=== PATIENT | female | born 1945 | race Caucasian/White ===

== ENCOUNTER 2019-10-19 10:21 | Outpatient (CLI) | payer MEDICARE, SELFPAY ==
--- NOTE | ~2019-10-19 | MM_ITS ---
EXAMINATION: MM screening [facility] BI w nadir HISTORY: Screening mammogram TECHNIQUE: Craniocaudal and mediolateral oblique 3-D tomosynthesis images were obtained and synthetic 2-D images were generated. CAD analysis was submitted and interpreted. COMPARISON: Comparison to multiple prior studies sequentially, with oldest reviewed study dated 04/18. BREAST PARENCHYMAL COMPOSITION: There are scattered areas of fibroglandular density. FINDINGS: There is no evidence of suspicious mass, calcification, or architectural distortion to sugg est malignancy in either breast. There has been no suspicious interval change. IMPRESSION: 1. No mammographic evidence of malignancy. 2. Recommend routine screening mammography in one year. BI-RADS Category 1: Negative Reviewed, dictated and finalized at location A.
== END 2019-10-19 10:22 | disposition home or self-care (01) ==
LOC: ANHIMG 10:25
PROVIDERS: PCP Internal Medicine; Visit Provider Internal Medicine
DX: Z12.31 Encounter for screening mammogram for malignant neoplasm of breast (principal)
CPT/HCPCS: 77063; 77067

== ENCOUNTER 2019-11-11 14:22 | Outpatient (CLI) | payer MEDICARE, SELFPAY ==
--- NOTE | 2019-11-11 14:24 | ECG_ITS ---
Measurements Intervals [place] Rate: 65 P: 72 NE: 142 QRS: -21 QRSD: 97 T: 11 QT: 402 QTc: 419 Interpretive Statements SINUS RHYTHM INCOMPLETE RIGHT BUNDLE BRANCH BLOCK LOW QRS VOLTAGE IN PRECORDIAL LEADS BASELINE ARTIFACT- I, II, III, AVR, AVL, AVF, V6 BORDERLINE ECG Electronically Signed On 11-11-2019 15:06:18 CDT by Brian Echevarria D.O.
[2019-11-11 15:00] LABS: Anion Gap 9 mmol/L (8-16); Blood Urea Nitrogen 28 mg/dL (7-17); Calcium 8.6 mg/dL (8.4-10.2); Carbon Dioxide 23 mmol/L (22-30); Chloride 101 mmol/L (98-107); Estimated Glomerular Filt Rate 37; Glucose 102 mg/dL (65-105); Sodium 133 mmol/L (137-145)
== END 2019-11-11 14:23 | disposition home or self-care (01) ==
LOC: ANHSURGERY 14:24
PROVIDERS: Anesthesiology; PCP Internal Medicine; Visit Provider Orthopaedic Surgery
DX: Z01.818 Encounter for other preprocedural examination (principal); I10 Essential (primary) hypertension; Z79.899 Other long term (current) drug therapy
CPT/HCPCS: 36415; 80048; 93005

== ENCOUNTER 2019-11-15 02:05 | Outpatient (CLI) | payer MEDICARE, SELFPAY ==
[2019-11-15 18:53] LABS: SARS-CoV-2 RNA PCR Negative
== END 2019-11-15 02:06 | disposition home or self-care (01) ==
LOC: ANHCOVIDDT 02:06
PROVIDERS: PCP Internal Medicine; Visit Provider Orthopaedic Surgery
DX: Z01.812 Encounter for preprocedural laboratory examination (principal); Z20.828 Contact with and (suspected) exposure to other viral communicable diseases
CPT/HCPCS: 87635; C9803; U0003

== ENCOUNTER 2019-11-17 00:45 | Day surgery (SDC) | payer MEDICARE, SELFPAY ==
[2019-11-09 15:10] VITALS: BMI 28.3
[2019-11-17] VITALS (9 sets, daily range): BP systolic 127–158; BP diastolic 58–74; PULSE 55–70; RESP 12–18; TEMP 36.5–36.6; O2SAT 100
--- NOTE | ~2019-11-17 | XR_ITS ---
EXAMINATION: XR surgery orthopedic EXAM DATE: 11/17/2019 10:59 INDICATION: Left ankle hardware removal. TECHNIQUE: Fluoroscopy used during XR surgery orthopedic performed by Dr. Sancho Sales MD. The DAP for this procedure was 4.6 cGycm2. FINDINGS: Study demonstrates multiple screw tracks from prior left ankle fixation hardware. No radio paque foreign bodies identified. Correlate with procedure note. IMPRESSION: Fluoroscopy used during orthopedic hardware removal. Reviewed, dictated and finalized at location B.
--- NOTE | 2019-11-17 07:18 | WPDHPUPDATE1 ---
History and Physical Update Update Date/Time: 11/17/19 07:18 History and Physical has been reviewed, including an updated exam of the patient. There are NO changes in the patient's condition. Covid test negative. Risks, benefits, and alternatives have been discussed and questions answered. Patient agrees to proceed with procedure.
[2019-11-17] MEDS: ACETAMINOPHEN 500 MG TABLET 1000 MG PO (08:35)
[2019-11-17] MEDS: LACTATED RINGERS 1,000 ML 30 ML IV CONT (08:40)
[2019-11-17] MEDS: KETOROLAC 15 MG/ML VIAL (*BKC) IV PUSH (08:45)
--- NOTE | 2019-11-17 09:10 | WPDANESEPPF ---
Anes - Initial Pre Proc Eval Procedure: Operation Date: 11/17/19 10:00 Proposed Procedures p Removal Hardware Left Ankle - Sancho Sales MD Date/Time: 11/17/19 09:10 Surgeon: Sancho Sales MD Pre Op Diagnosis: Left ankle painful hardware Patient Data Age: 73 Gender: F Height: 1.6 m Weight: 72.5 kg Last Vital Signs Temp 36.5 C 11/17/19 08:02 Pulse 58 L 11/17/19 08:02 Resp 18 11/17/19 08:02 BP 154/72 H 11/17/19 08:02 Pulse Ox 100 11/17/19 08:02 Allergies Allergy/AdvReac Type Severity Reaction Status Date / Time Penicillins Allergy Unknown Rash Verified 11/17/19 08:17 Sulfa (Sulfonamide Allergy Unknown Rash Verified 11/17/19 08:17 Antibiotics) Home Medications Medication Instructions Recorded Confirmed Type aspirin 81 mg tablet,delayed 81 mg PO DAILY 02/17/19 11/17/19 History release lisinopril 10 1 tablet PO DAILY 02/17/19 11/17/19 History mg-hydrochlorothiazide 12.5 mg tablet metoprolol succinate 25 mg 25 mg PO HS 02/17/19 11/17/19 History tablet,extended release 24 hr valacyclovir 1 gram tablet 1,000 mg PO DAILY #5 tablet 06/28/19 11/17/19 Rx atorvastatin 10 mg PO HS 11/09/19 11/17/19 History calcium carbonate-vitamin D3 1 cap PO DAILY 11/09/19 11/17/19 History [Calcium 600 + D(3)] cyanocobalamin (vitamin B-12) 1,000 mcg PO DAILY 11/09/19 11/17/19 History [Vitamin B-12] ECG: Date of Service: 11/11/19 Procedure(s): CA 12 lead EKG Accession Number(s): [id number] cc: ~ Measurements Intervals [place] Rate: 65 P: 72 MT: 142 QRS: -21 QRSD: 97 T: 11 QT: 402 QTc: 419 Interpretive Statements SINUS RHYTHM INCOMPLETE RIGHT BUNDLE BRANCH BLOCK LOW QRS VOLTAGE IN PRECORDIAL LEADS BASELINE ARTIFACT- I, II, III, AVR, AVL, AVF, V6 BORDERLINE ECG Electronically Signed On 11-11-2019 15:06:18 CDT by Brian Echevarria D.O. Dictated By: Brian Echevarria DO 11/11/19 1459 Other Studies: cardiac cath 07/12 - normal, ef 60% Patient hx anesthesia problems: none Family hx anesthesia problems: none PMFSH Past Medical History Medical History (Updated 11/17/19 @ 09:12 by Kevin Guevara MD) CAD (coronary artery disease) Genital herpes HLD (hyperlipidemia) HTN (hypertension) Hyperglycemia Pain due to internal orthopedic prosthetic devices, implants and grafts, subsequent encounter Painful orthopaedic hardware Paroxysmal SVT (supraventricular tachycardia) Prediabetes Vitamin D deficiency Surgical History Surgical History H/O total hysterectomy History of ankle surgery History of cholecystectomy Social History Social History Smoking status: Former smoker Smoking end date: 03/30/97 Additional smoking assessment comments: >1PK/DAY/X10YRS - QUIT 1997 Alcohol intake: current Substance use: never Living arrangements: with family Spiritual care concerns: No Anes - Eval Final PreProcedure Day of Procedure 11/17/19 09:10 Patient weight: overweight Heart: regular rate and rhythm Lungs: clear to auscultation and normal air movement Airway: Mallampati scale class II Neurological: alert and oriented Last oral intake: >/= 8 hours ASA classification: III Emergent: no Anesthetic plan: proceed Anesthesia type and monitoring: general LMA Informed Consent: The patient's anesthetic plan and its attendant risks and benefits were discussed with the patient/family/POA. Questions were solicited and answers provided to the satisfaction of the patient/family/POA.
[2019-11-17] MEDS: ceFAZolin 2 GM/D5W 50 ML 2 GM/50 ML BAG IVPB (09:58)
--- NOTE | 2019-11-17 11:09 | P.OP_ITS ---
Procedure Note - Detailed Date of procedure: 11/17/19 Pre-op diagnosis: Left ankle painful hardware Post-op diagnosis: same Procedure performed: Removal of hardware from the left medial ankle, anterior ankle, distal fibula Description of procedure: Indications: Patient is a 73-year-old woman who 0 previously underwent open reduction internal fixation of the left ankle fracture including distal tibia and fibula. The hardware has become prominent and is visible under the skin laterally. She has pain due to the hardware and presents now for removal. Radiographs show the fractures are well healed. What was done: Patient identified in the preoperative holding. Informed consent given. Operative extremity marked. Patient received intravenous antibiotics. Patient brought to the operating room where underwent general anesthetic by anesthesia team. Positioned supine on operating room table. Time-out performed confirming the patient, site of the surgery and the plan. Left foot and ankle prepped and draped usual sterile surgical fashion using a ChloraPrep skin solution. Foot and ankle exsanguinated and a calf tourniquet was inflated to 225 mmHg. Previous distal fibula incision over the lateral aspect was utilized made again with a 15 blade knife. Hemostasis controlled electrocautery. Fascia was incised in line with skin incision. Plate and screws over the distal fibular were removed. The bone was cleaned with a rongeur and a curette. Fracture was noted to be well healed. Wound was thoroughly irrigated with saline and fascia closed with 3 Monocryl interrupted suture. Subcutaneous tissue repaired with 3 Monocryl interrupted suture and skin repaired with 4 nylon running suture. The medial malleolus incision was made with 15 blade knife. Fascia incised in line with skin incision. The 2 screws medially were cannulated and a guide pin was used to prepare the screws. The screwdriver was then used to remove the 2 screws medially. Bone was curetted and thoroughly irrigated. Fascia and subcutaneous tissue closed with 3 0 Monocryl interrupted suture. Skin closed with 4 0 nylon interrupted suture. The anterior distal tibia incision was then made with 15 blade knife. Fluoroscopy was used to guide the pin placement into the cannulated screws at the anterior aspect of the distal tibia. The 2 screws were removed without difficulty. Wounds thoroughly irrigated antibiotic solution and closed with 3 M onocryl interrupted suture and 4 O nylon interrupted suture. Sterile dressing applied. The patient was then woken from anesthesia, extubated and taken to the recovery room in stable condition. All sponge, needle, instrument counts were correct at the end of the case. Anesthesia: GLMA Surgeon: Sancho Sales MD Envelope Machine Adjuster: assistant kitchen manager Estimated blood loss (mL): 5 Tourniquet time (min): 45 Drains: No Packing: No Pathology: none sent Complications: None Condition: stable Disposition: PACU
--- NOTE | 2019-11-17 13:51 | SUR.PHASEII ---
1320; PT DRESSED. STATES SHE FEELS LIKE HER HEEL ISN'T ALL THE WAY BACK IN THE BOOT BOOT REMOVED. PT PLACED FOOT BACK IN BOOT WHILE IN DEPENDENT POSITION. DRESSING D/I. TOES PINK AND WARM. MEETS DISCHARGE CRITERIA.
== END 2019-11-17 13:30 | disposition home or self-care (01) ==
PROVIDERS: PCP Internal Medicine; Visit Provider Orthopaedic Surgery
PROC: (CPT 20680; principal; 2019-11-17 10:00)
DX: T84.84XA Pain due to internal orthopedic prosthetic devices, implants and grafts, initial encounter (principal); M25.572 Pain in left ankle and joints of left foot; S82.832D Other fracture of upper and lower end of left fibula, subsequent encounter for closed fracture with routine healing; S82.842D Displaced bimalleolar fracture of left lower leg, subsequent encounter for closed fracture with routine healing; I25.10 Atherosclerotic heart disease of native coronary artery without angina pectoris; I10 Essential (primary) hypertension; E78.5 Hyperlipidemia, unspecified; I47.1 Supraventricular tachycardia; B00.9 Herpesviral infection, unspecified; R73.03 Prediabetes; E55.9 Vitamin D deficiency, unspecified; Z87.891 Personal history of nicotine dependence
CPT/HCPCS: 20680 ×3; 36415; 80048; 87635; 93005; A9270; C9803; J0690; J1040; J1100; J1885; J2370; J2405; J2704; J3010; J7120; L2116; U0003

== ENCOUNTER 2020-02-28 07:24 | Outpatient (CLI) | payer MEDICARE, SELFPAY ==
[2020-02-28 08:00] LABS: Anion Gap 5 mmol/L (8-16); Blood Urea Nitrogen 24 mg/dL (7-17); Calcium 9.2 mg/dL (8.4-10.2); Carbon Dioxide 30 mmol/L (22-30); Chloride 104 mmol/L (98-107); Estimated Glomerular Filt Rate 44; Glucose 109 mg/dL (65-105); Potassium 4.9 mmol/L (3.4-5.0); Sodium 139 mmol/L (137-145)
[2020-02-28 08:33] LABS: Hemoglobin A1C 5.5 % (<5.7)
== END 2020-02-28 07:25 | disposition home or self-care (01) ==
PROVIDERS: PCP Internal Medicine; Visit Provider Clinical Nurse Specialist
DX: R73.09 Other abnormal glucose (principal); N28.9 Disorder of kidney and ureter, unspecified
CPT/HCPCS: 36415; 80048; 83036

== ENCOUNTER 2020-03-10 00:36 | Outpatient (CLI) | payer MEDICARE, SELFPAY ==
[2020-03-10 20:15] LABS: SARS-CoV-2 RNA PCR Negative
== END 2020-03-10 00:37 | disposition home or self-care (01) ==
LOC: ANHCOVIDDT 00:37
PROVIDERS: PCP Internal Medicine; Visit Provider Internal Medicine Gastroenterology
DX: Z01.812 Encounter for preprocedural laboratory examination (principal); Z11.59 Encounter for screening for other viral diseases
CPT/HCPCS: 87635; C9803; U0003

== ENCOUNTER 2020-03-13 01:26 | Day surgery (SDC) | payer MEDICARE, SELFPAY ==
[2020-03-07 12:06] VITALS: BMI 28.5
[2020-03-13 08:43] VITALS: BP 109/68; PULSE 78; RESP 20; TEMP 37.3; O2SAT 100
[2020-03-13] MEDS: LACTATED RINGERS 1,000 ML 150 ML IV CONT (08:55)
--- NOTE | 2020-03-13 09:12 | WPDANESEPPF ---
Anes - Initial Pre Proc Eval Procedure: Operation Date: 03/13/20 10:00 Proposed Procedures p Screening Colonoscopy - Preet Styles MD Date/Time: 03/13/20 09:12 Surgeon: Preet Styles MD Pre Op Diagnosis: neoplasm screening Patient Data Age: 74 Gender: F Height: 5 ft 3 in Weight: 70.7 kg Last Vital Signs Temp 37.3 C 03/13/20 08:43 Pulse 78 03/13/20 08:43 Resp 20 03/13/20 08:43 BP 109/68 03/13/20 08:43 Pulse Ox 100 03/13/20 08:43 Allergies Allergy/AdvReac Type Severity Reaction Status Date / Time Penicillins Allergy Unknown Rash Verified 03/13/20 08:41 Sulfa (Sulfonamide Allergy Unknown Rash Verified 03/13/20 08:41 Antibiotics) Home Medications Medication Instructions Recorded Confirmed Type aspirin 81 mg tablet,delayed 81 mg PO DAILY 02/17/19 03/07/20 History release lisinopril 10 1 tablet PO DAILY 02/17/19 03/07/20 History mg-hydrochlorothiazide 12.5 mg tablet metoprolol succinate 25 mg 25 mg PO HS 02/17/19 03/07/20 History tablet,extended release 24 hr cyanocobalamin (vitamin B-12) 1,000 mcg PO DAILY 11/09/19 03/07/20 History [Vitamin B-12] valacyclovir 500 mg tablet 500 mg PO Q12H 3 Days #6 tablet 01/18/20 03/07/20 Rx atorvastatin 10 mg tablet 10 mg PO HS #90 tablet 01/30/20 03/07/20 Rx Patient hx anesthesia problems: none Family hx anesthesia problems: none PMFSH Past Medical History Medical History CAD (coronary artery disease) Genital herpes HLD (hyperlipidemia) HTN (hypertension) Hyperglycemia Pain due to internal orthopedic prosthetic devices, implants and grafts, subsequent encounter Painful orthopaedic hardware Paroxysmal SVT (supraventricular tachycardia) Prediabetes Vitamin D deficiency Surgical History Surgical History H/O total hysterectomy History of ankle surgery History of cholecystectomy Family History Family History Sibling Patient's sister is in good health Malignant neoplasm of prostate Other Hypertension Social History Social History Years smoked: 10 Smoking status: Former smoker Tobacco type: cigarettes Smoking end date: 03/30/97 Additional smoking assessment comments: >1PK/DAY/X10YRS - QUIT 1997 Alcohol intake: current Substance use: never Living arrangements: with family Gender identity (if verbalized by the patient): Female Spiritual care concerns: No Anes - Eval Final PreProcedure Day of Procedure 03/13/20 09:12 Patient weight: overweight Heart: regular rate and rhythm Lungs: clear to auscultation Airway: Mallampati scale class II Neurological: alert and oriented Last oral intake: >/= 8 hours ASA classification: III Emergent: no Anesthetic plan: proceed Anesthesia type and monitoring: general GIVS and standard monitoring Informed Consent: The patient's anesthetic plan and its attendant risks and benefits were discussed with the patient/family/POA. Questions were solicited and answers provided to the satisfaction of the patient/family/POA.
--- NOTE | 2020-03-13 09:37 | PM.HPGS ---
History of Present Illness History of Present Illness Consent: Risks, benefits, and alternatives have been discussed and questions answered. Patient agrees to proceed with procedure. Chief complaint: neoplasm screening Narrative: Mamta Ames is a 74 year old female with polyps about 3 years ago. Review of Systems Constitutional: Constitutional: Denies headache(s) and Denies weakness Eyes: Eyes: Denies blurry vision ENT: Reports Normal hearing present, Denies headache(s) and Denies neck pain Cardiovascular: Cardiovascular: Denies chest pain and Denies dyspnea Respiratory: Respiratory: Denies dyspnea Gastrointestinal: Gastrointestinal: Reports no additional gastrointestinal complaints Genitourinary: Genitourinary: Denies dysuria Musculoskeletal: Musculoskeletal: Denies neck pain Integumentary/Breasts: Skin/Breast: Denies dry skin Neurologic: Reports Normal hearing present, Denies headache(s) and Denies weakness Psychiatric: Psychiatric: Denies anxiety Endocrine: Endocrine: Denies change in body appearance Hematologic/Lymphatic: Hematologic/Lymphatic: Denies easy bleeding Allergic/Immunologic: Allergic/Immunologic: Denies urticaria PMFSH Past Medical History Medical History CAD (coronary artery disease) Genital herpes HLD (hyperlipidemia) HTN (hypertension) Hyperglycemia Pain due to internal orthopedic prosthetic devices, implants and grafts, subsequent encounter Painful orthopaedic hardware Paroxysmal SVT (supraventricular tachycardia) Prediabetes Vitamin D deficiency Surgical History Surgical History H/O total hysterectomy History of ankle surgery History of cholecystectomy Family History Family History Sibling Patient's sister is in good health Malignant neoplasm of prostate Other Hypertension Social History Social History Years smoked: 10 Smoking status: Former smoker Tobacco type: cigarettes Smoking end date: 03/30/97 Additional smoking assessment comments: >1PK/DAY/X10YRS - QUIT 1997 Alcohol intake: current Substance use: never Living arrangements: with family Gender identity (if verbalized by the patient): Female Spiritual care concerns: No Meds Home Medications and Allergies Home Medications Medication Instructions Recorded Confirmed Type aspirin 81 mg tablet,delayed 81 mg PO DAILY 02/17/19 03/07/20 History release lisinopril 10 1 tablet PO DAILY 02/17/19 03/07/20 History mg-hydrochlorothiazide 12.5 mg tablet metoprolol succinate 25 mg 25 mg PO HS 02/17/19 03/07/20 History tablet,extended release 24 hr cyanocobalamin (vitamin B-12) 1,000 mcg PO DAILY 11/09/19 03/07/20 History [Vitamin B-12] valacyclovir 500 mg tablet 500 mg PO Q12H 3 Days #6 tablet 01/18/20 03/07/20 Rx atorvastatin 10 mg tablet 10 mg PO HS #90 tablet 01/30/20 03/07/20 Rx Allergies Allergy/AdvReac Type Severity Reaction Status Date / Time Penicillins Allergy Unknown Rash Verified 03/13/20 08:41 Sulfa (Sulfonamide Allergy Unknown Rash Verified 03/13/20 08:41 Antibiotics) Vital Signs Vital Signs - 24 hr 03/13/20 08:43 Temperature 99.1 F Pulse Rate 78 Respiratory Rate 20 Blood Pressure 109/68 Pulse Oximetry 100 Exam Const: General: comfortable and no acute distress HENMT: General nose exam: Normal nares present Eyes: General: appearance normal, both eyes and all related structures Neck: Neck: no JVD Resp: Auscultation: clear to auscultation bilaterally Cardio: Rate: regular rate Rhythm: regular rhythm GI: Inspection: non-distended GI Palp: Yes Soft to palpation Skin: General skin exam: normal color Neuro: General: gait normal Speech: normal speech Extrem: General: normal to inspection Psych: Mental Status:
[2020-03-13 09:55] VITALS: BP 91/57; PULSE 68; RESP 17; O2SAT 98
[2020-03-13 10:05] VITALS: BP 96/62; PULSE 66; RESP 17; O2SAT 99
[2020-03-13 10:15] VITALS: BP 112/68; PULSE 72; RESP 21; O2SAT 99
== END 2020-03-13 10:28 | disposition home or self-care (01) ==
PROVIDERS: PCP Internal Medicine; Visit Provider Internal Medicine Gastroenterology
PROC: 0DJD8ZZ Inspection of Lower Intestinal Tract, Via Natural or Artificial Opening Endoscopic (ICD-10-PCS; CPT 45378; principal; 2020-03-13 10:00)
DX: Z12.11 Encounter for screening for malignant neoplasm of colon (principal); D12.2 Benign neoplasm of ascending colon; D12.3 Benign neoplasm of transverse colon; K57.30 Diverticulosis of large intestine without perforation or abscess without bleeding; K64.8 Other hemorrhoids; Z79.82 Long term (current) use of aspirin; I25.10 Atherosclerotic heart disease of native coronary artery without angina pectoris; E78.5 Hyperlipidemia, unspecified; I10 Essential (primary) hypertension; R73.9 Hyperglycemia, unspecified; I47.1 Supraventricular tachycardia; R73.03 Prediabetes; E55.9 Vitamin D deficiency, unspecified; Z87.891 Personal history of nicotine dependence; B00.9 Herpesviral infection, unspecified
CPT/HCPCS: 45385; 88305; J7120

== ENCOUNTER 2020-05-03 08:09 | Outpatient (CLI) | payer MEDICARE, SELFPAY ==
[2020-05-03 08:48] LABS: Anion Gap 6 mmol/L (8-16); Blood Urea Nitrogen 33 mg/dL (7-17); Calcium 9.1 mg/dL (8.4-10.2); Carbon Dioxide 28 mmol/L (22-30); Chloride 106 mmol/L (98-107); Estimated Glomerular Filt Rate 37; Glucose 116 mg/dL (65-105); Potassium 4.7 mmol/L (3.4-5.0); Sodium 140 mmol/L (137-145)
[2020-05-03 09:17] LABS: Vitamin D 25 Hydroxy 37.2 ng/mL
== END 2020-05-03 08:10 | disposition home or self-care (01) ==
PROVIDERS: PCP Internal Medicine; Visit Provider Clinical Nurse Specialist
DX: E55.9 Vitamin D deficiency, unspecified (principal); N28.9 Disorder of kidney and ureter, unspecified
CPT/HCPCS: 36415; 80048; 82306

== ENCOUNTER 2020-05-16 08:56 | Outpatient (CLI) | payer MEDICARE, SELFPAY ==
--- NOTE | ~2020-05-16 | US_ITS ---
EXAMINATION: US retroperitoneal comp DATE: 05/16/2020 09:27 INDICATION: Disorder of kidney and ureter. TECHNIQUE: Multiple ultrasound grayscale images of the kidneys were obtained. COMPARISON: None. FINDINGS: The right kidney measures 8.8 x 4.7 x 4.5 cm. The left kidney measures 8.4 x 4.5 x 4.8 cm. The kidney s demonstrate normal echogenicity. There is no hydronephrosis in either kidney. No stones identified . The bladder is normal. IMPRESSION: 1. Normal kidneys without hydronephrosis. Reviewed, dictated and finalized at location A. CLEANER
== END 2020-05-16 08:57 | disposition home or self-care (01) ==
PROVIDERS: PCP Internal Medicine; Visit Provider Clinical Nurse Specialist
DX: N28.9 Disorder of kidney and ureter, unspecified (principal)
CPT/HCPCS: 76770

== ENCOUNTER 2020-05-17 08:22 | Outpatient (CLI) | payer MEDICARE, SELFPAY ==
--- NOTE | ~2020-05-17 | US_ITS ---
EXAMINATION: US retroperitoneal duplex ltd DATE: 05/17/2020 09:18 INDICATION: Abnormal renal function. Disorder of kidney and ureter. TECHNIQUE: Multiple grayscale, color Doppler, and pulsed Doppler images of the kidneys and renal patsy vladislav were obtained. COMPARISON: None. FINDINGS: The aorta peak systolic velocity is 63 cm/s. The right renal artery peak systolic velocity is 96 cm/s in the proximal segment, 128 cm/s in the mid segment, and 122 cm/s in the distal segment. The left r enal artery peak systolic velocity is 82 cm/s in the proximal segment, 139 cm/s in the mid segment, a nd 78 cm/s in the distal segment. IMPRESSION: 1. No Doppler evidence of renal artery stenosis. Reviewed, dictated and finalized at location A. UCTION ADMINISTRATOR
[2020-05-17 09:57] LABS: Anion Gap 4 mmol/L (8-16); Blood Urea Nitrogen 24 mg/dL (7-17); Calcium 9.3 mg/dL (8.4-10.2); Carbon Dioxide 29 mmol/L (22-30); Chloride 106 mmol/L (98-107); Estimated Glomerular Filt Rate 44; Glucose 109 mg/dL (65-105); Potassium 5.4 mmol/L (3.4-5.0); Sodium 139 mmol/L (137-145)
[2020-05-17 11:10] LABS: Hepatitis C Virus Antibody Negative (Negative)
[2020-05-21 12:52] LABS: Creatinine, Random Urine 118 mg/dL (20-275); Total Protein/Creatinine Ratio 76 mg/g creat (21-161)
[2020-05-21 22:21] LABS: Albumin 3.7 g/dL (3.8-4.8); Alpha 1 Globulin 0.3 g/dL (0.2-0.3); Alpha 2 Globulin 0.8 g/dL (0.5-0.9); Beta 1 Globulin 0.5 g/dL (0.4-0.6); Gamma Globulin 0.9 g/dL (0.8-1.7); Protein, Total 6.6 g/dL (6.1-8.1)
== END 2020-05-17 08:23 | disposition home or self-care (01) ==
PROVIDERS: PCP Internal Medicine; Visit Provider Clinical Nurse Specialist
DX: N28.9 Disorder of kidney and ureter, unspecified (principal); R94.4 Abnormal results of kidney function studies; I10 Essential (primary) hypertension
CPT/HCPCS: 36415; 80048; 82570; 84155; 84156; 84165; 84166; 86038; 86803; 93976

== ENCOUNTER 2020-08-04 07:10 | Outpatient (CLI) | payer MEDICARE, SELFPAY ==
[2020-08-04 07:37] LABS: Potassium 5.2 mmol/L (3.4-5.0)
[2020-08-04 07:39] LABS: Albumin Level 3.9 g/dL (3.5-5.1); Anion Gap 3 mmol/L (8-16); Blood Urea Nitrogen 24 mg/dL (7-17); Carbon Dioxide 31 mmol/L (22-30); Chloride 106 mmol/L (98-107); Estimated Glomerular Filt Rate 44; Glucose 115 mg/dL (65-105); Phosphorus 3.7 mg/dL (2.5-4.5); Sodium 140 mmol/L (137-145)
== END 2020-08-04 07:11 | disposition home or self-care (01) ==
PROVIDERS: PCP Internal Medicine; Visit Provider Internal Medicine Nephrology
DX: N18.30 Chronic kidney disease, stage 3 unspecified (principal)
CPT/HCPCS: 36415; 80069

== ENCOUNTER 2020-10-23 08:09 | Outpatient (CLI) | payer MEDICARE, SELFPAY ==
--- NOTE | ~2020-10-23 | MM_ITS ---
EXAMINATION: MM screening [facility] BI w nadir HISTORY: Screening mammogram TECHNIQUE: Craniocaudal and mediolateral oblique 3-D tomosynthesis images were obtained and synthetic 2-D images were generated. CAD analysis was submitted and interpreted. COMPARISON: 10/19/2019, 09/07/2018, 09/01/2017 bilateral digital screening mammogram examinations BREAST PARENCHYMAL COMPOSITION: There are scattered areas of fibroglandular density. FINDINGS: There is an approximately 4 mm asymmetry in the posterior aspect of the lower inner quadran t of the right breast. Diagnostic right mammogram is recommended, with ultrasound if required. Otherwise there is no evidence of suspicious mass, calcification, or architectural distortion to sugg est malignancy in either breast. There has been no other suspicious interval change. IMPRESSION: 1. 4 mm asymmetric opacity in the posterior aspect of the lower inner right breast 2. Diagnostic right mammogram is recommended, with ultrasound if required BI-RADS Category 0: Incomplete: Needs additional imaging evaluation. Reviewed, dictated and finalized at location A. IMPRESSION: 1. 4 mm asymmetric opacity in the posterior aspect of the lower inner right carline ast 2. Diagnostic right mammogram is recommended, with ultrasound if required BI-RADS Category 0: Incomplete: Needs additional imaging evaluation.
== END 2020-10-23 08:10 | disposition home or self-care (01) ==
PROVIDERS: PCP Internal Medicine; Visit Provider Internal Medicine
DX: Z12.31 Encounter for screening mammogram for malignant neoplasm of breast (principal)
CPT/HCPCS: 77063; 77067

== ENCOUNTER 2020-11-19 12:40 | Outpatient (CLI) | payer MEDICARE, SELFPAY ==
--- NOTE | ~2020-11-19 | MM_ITS ---
EXAMINATION: MM diagnostic [facility] RT w nadir HISTORY: Right breast asymmetry on screening mammogram TECHNIQUE: Additional 3-D tomosynthesis images of the right breast were performed and synthetic 2-D i mages were generated. CAD analysis was submitted and interpreted. COMPARISON: 10/23/2020, 10/19/2019, 09/07/2018 FINDINGS: There is a return to baseline fibroglandular appearance with spot compression of the right breast in the area questioned on screening mammogram. IMPRESSION: 1. No mammographic evidence of malignancy. 2. Recommend routine screening mammography in one year. BI-RADS Category 1: Negative Reviewed, dictated and finalized at location A.
== END 2020-11-19 12:41 | disposition home or self-care (01) ==
LOC: ANHIMG 12:43
PROVIDERS: PCP Internal Medicine; Visit Provider Clinical Nurse Specialist
DX: R92.8 Other abnormal and inconclusive findings on diagnostic imaging of breast (principal)
CPT/HCPCS: 77061; 77065; G0279

== ENCOUNTER 2021-08-15 15:13 | Outpatient (CLI) | payer MEDICARE, SELFPAY ==
--- NOTE | ~2021-08-15 | DEXA_ITS ---
Bone Density Report Name: HUMPHREY BURLESON Age: 75 Sex: Female Ethnicity: White Date of : 1945 Indication: osteopenia; prior fracture; hysterectomy; postmenopausal Referring Provider: ISAEL ALONSO Study: Bone densitometry was performed. Exam Date: August 15, 2021 Accession number: [id number] Bone Density: Region BMD T-score Z-score Classification AP Spine(L1-L4) 0.895 -1.4 1.1 Osteopenia Femoral Neck (Left) 0.617 -2.1 0.0 Osteopenia Total Hip (Left) 0.681 -2.1 -0.3 Osteopenia Femoral Neck (Right) 0.675 -1.6 0.5 Osteopenia Total Hip (Right) 0.765 -1.5 0.4 Osteopenia Total Hip Mean 0.723 -1.8 0.1 Osteopenia World Health Organization criteria for BMD impression classify patients as: Normal (T-score at or above -1.0), Osteopenia (T-score between -1.0 and -2.5), or Osteoporosis (T-score at or below -2.5). 10-year Fracture Risk(1): Major Osteoporotic Fracture 21% Hip Fracture 5.2% Reported Risk Factors: [place] (), Neck BMD=0.617, BMI=24.8, previous fracture (1) FRAX(R) Version 3.08. Fracture probability calculated for an untreated patient. Fracture probability may be lower if the patient has received treatment. Previous Exams: Region Exam Age BMD T-score BMD Change BMD Change Date g/cm2 vs Baseline vs Previous AP Spine (L1-L4) 08/15/2021 75 0.895 -1.4 0.070 (8.4%)* 0.070 (8.4%)* 04/19/2015 69 0.825 -2.0 Total Hip(Left) 08/15/2021 75 0.681 -2.1 -0.047 (-6.5%) -0.047 (-6.5%) 04/19/2015 69 0.728 -1.8 Total Hip(Right) 08/15/2021 75 0.765 -1.5 0.065 (9.2%)* 0.065 (9.2%)* 04/19/2015 69 0.700 -2.0 *Denotes significance at 95% confidence level, LSC for AP Spine = 0.022 g/cm2, LSC for Total Hip = 0.027 g/cm2 Clinical Information Provided by Patient: Has had a low trauma fracture Has used the following medications: Vitamin D, Calcium Has the following medical conditions: Hysterectomy Patient maximum height was 63 Menopause Age: 50 No regular weight bearing exercise Drinks caffeinated beverages Onset of menses at age 13 Number of children 4 Impression: The patient has low bone mass, based on the Left Total Hip T-score. The patient has an estimated ten-year risk of hip fracture of 5.2% and an estimated ten-year risk of major fracture of 21%, based on the WHO FRAX algorithm. The patient has risk factors, including: previous fracture. The BMD for the Total Hip(Left) decreased, changing by -6.5% si
== END 2021-08-15 15:14 | disposition home or self-care (01) ==
PROVIDERS: PCP Internal Medicine; Visit Provider Nurse Practitioner
DX: Z78.0 Asymptomatic menopausal state (principal); M81.0 Age-related osteoporosis without current pathological fracture; M85.88 Other specified disorders of bone density and structure, other site; M85.851 Other specified disorders of bone density and structure, right thigh; M85.852 Other specified disorders of bone density and structure, left thigh
CPT/HCPCS: 77080

== ENCOUNTER 2021-09-20 02:13 | Day surgery (SDC) | payer MEDICARE, SELFPAY ==
[2021-09-17 09:50] VITALS: BMI 27.8
--- NOTE | 2021-09-19 12:39 | WPDANESEPPF ---
Anes - Initial Pre Proc Eval Procedure: Operation Date: 09/20/21 10:00 Proposed Procedures p Esophagogastroduodenoscopy - Preet Styles MD Date/Time: 09/19/21 12:39 Surgeon: Preet Styles MD Pre Op Diagnosis: Epigastric pain Patient Data Age: 75 Gender: F Height: 1.6 m Weight: 71.3 kg Allergies Allergy/AdvReac Type Severity Reaction Status Date / Time Penicillins Allergy Unknown Rash Verified 09/20/21 08:56 Sulfa (Sulfonamide Allergy Unknown Rash Verified 09/20/21 08:56 Antibiotics) Home Medications Medication Instructions Recorded Confirmed Type aspirin 81 mg tablet,delayed 81 mg PO DAILY 02/17/19 09/20/21 History release (Adult Low Dose Aspirin) cyanocobalamin (vitamin B-12) 1,000 mcg PO DAILY 11/09/19 09/20/21 History 1,000 mcg tablet (Vitamin B-12) lisinopril 10 1 tablet PO DAILY 08/22/20 09/20/21 History mg-hydrochlorothiazide 12.5 mg tablet metoprolol succinate 25 mg 50 mg PO HS 08/22/20 09/17/21 History tablet,extended release 24 hr calcium carbonate 500 mg calcium 500 mg PO .3 times a week 05/29/21 09/20/21 History (1,250 mg) chewable tablet (Calcium 500) triamcinolone acetonide 0.1 % 1 applic topical BID #60 mL 08/22/21 09/17/21 Rx lotion denosumab 60 mg/mL subcutaneous 60 mg subcut [id number] #1 mL 08/28/21 09/20/21 Rx syringe (Prolia) atorvastatin 10 mg tablet 10 mg PO HS #90 tabs 08/29/21 09/20/21 Rx cholecalciferol (vitamin D3) 50 50 mcg PO DAILY 09/05/21 09/20/21 History mcg (2,000 unit) capsule cholestyramine (with sugar) 4 gram 4 g PO BID #368.76 grams 09/05/21 09/20/21 Rx oral powder (Questran) omeprazole 40 mg capsule,delayed 40 mg PO DAILY #30 caps 09/05/21 09/17/21 Rx release valacyclovir 500 mg tablet See Rx Instructions .Route 09/16/21 09/17/21 Rx .COMPLEX #6 tabs Patient hx anesthesia problems: none Family hx anesthesia problems: none Results Review: All pre-operative results and documents have been reviewed as part of the pre-operative evaluation. [facility] Past Medical History Medical History (Updated 09/05/21 @ 15:06 by Rhonda Jones APRN) Abdominal pain Bloating CAD (coronary artery disease) Diarrhea Fecal urgency Genital herpes HLD (hyperlipidemia) HTN (hypertension) Hyperglycemia Pain due to internal orthopedic prosthetic devices, implants and grafts, subsequent encounter Painful orthopaedic hardware Paroxysmal SVT (supraventricular tachycardia) Prediabetes Vitamin D deficiency Surgical History Surgical History H/O total hysterectomy History of ankle surgery History of cholecystectomy Family History Family History Sibling Patient's sister is in good health Malignant neoplasm of prostate Other Hypertension Social History Social History Years smoked: 10 Smoking status: Former smoker Tobacco type: cigarettes Smoking end date: 03/30/97 Additional smoking assessment comments: >1PK/DAY/X10YRS - QUIT 1997 Alcohol intake: current Alcohol use details: occasional glass of wine Substance use: never Substance use type: does not use Living arrangements: with family Gender identity (if verbalized by the patient): Female Spiritual care concerns: No Anes - Eval Final PreProcedure Day of Procedure 09/19/21 12:39 Patient weight: overweight Heart: regular rate and rhythm Lungs: clear to auscultation Airway: Mallampati scale class II Neurological: alert and oriented Last oral intake: >/= 8 hours ASA classification: III Emergent: no Anesthetic plan: proceed Anesthesia type and monitoring: general GIVS and standard monitoring Results Review: All pre-operative results and documents have been reviewed as part of the pre-operative evaluation. Informed Consent: The patient's anes
[2021-09-20 08:58] VITALS: BP 155/65; PULSE 50; RESP 18; TEMP 36.5; O2SAT 100; BMI 27.8
[2021-09-20] MEDS: LACTATED RINGERS 1,000 ML 150 ML IV CONT (09:13)
--- NOTE | 2021-09-20 09:31 | WPDHPUPDATE1 ---
History and Physical Update Update Date/Time: 09/20/21 09:31 History and Physical has been reviewed, including an updated exam of the patient. There are NO changes in the patient's condition. Risks, benefits, and alternatives have been discussed and questions answered. Patient agrees to proceed with procedure.
[2021-09-20 09:48] VITALS: BP 131/74; PULSE 97; RESP 15; O2SAT 97
[2021-09-20 09:58] VITALS: BP 139/67; PULSE 52; RESP 12; O2SAT 98
[2021-09-20 10:08] VITALS: BP 151/79; PULSE 50; RESP 12; O2SAT 100
== END 2021-09-20 10:24 | disposition home or self-care (01) ==
PROVIDERS: PCP Internal Medicine; Visit Provider Internal Medicine Gastroenterology
PROC: 0DJ08ZZ Inspection of Upper Intestinal Tract, Via Natural or Artificial Opening Endoscopic (ICD-10-PCS; CPT 43235; principal; 2021-09-20 10:00)
DX: R10.13 Epigastric pain (principal); K29.50 Unspecified chronic gastritis without bleeding; K58.0 Irritable bowel syndrome with diarrhea; R15.2 Fecal urgency; R10.9 Unspecified abdominal pain; I25.10 Atherosclerotic heart disease of native coronary artery without angina pectoris; E78.5 Hyperlipidemia, unspecified; R73.9 Hyperglycemia, unspecified; R73.03 Prediabetes; E55.9 Vitamin D deficiency, unspecified; I47.1 Supraventricular tachycardia; Z87.891 Personal history of nicotine dependence
CPT/HCPCS: 43239; 88305; J2704; J7120

== ENCOUNTER 2021-12-16 07:57 | Outpatient (CLI) | payer MEDICARE, SELFPAY ==
--- NOTE | ~2021-12-16 | MM_ITS ---
EXAMINATION: MM screening [facility] BI w nadir HISTORY: Screening mammogram TECHNIQUE: Craniocaudal and mediolateral oblique 3-D tomosynthesis images were obtained and synthetic 2-D images were generated. CAD analysis was submitted and interpreted. COMPARISON: 11/19/2020, 10/23/2020, 10/19/2019 BREAST PARENCHYMAL COMPOSITION: The breasts are heterogeneously dense, which may obscure small masses . FINDINGS: There is no suspicious mass, calcification, or architectural distortion to suggest malignan cy in either breast. There has been no suspicious interval change. IMPRESSION: 1. No mammographic evidence of malignancy. 2. Recommend routine screening mammography in one year. BI-RADS Category 1: Negative Reviewed, dictated and finalized at location A.
== END 2021-12-16 07:58 | disposition home or self-care (01) ==
PROVIDERS: PCP Internal Medicine; Visit Provider Internal Medicine
DX: Z12.31 Encounter for screening mammogram for malignant neoplasm of breast (principal)
CPT/HCPCS: 77063; 77067

== ENCOUNTER 2022-04-07 15:14 | Outpatient (CLI) | payer MEDICARE, SELFPAY ==
--- NOTE | ~2022-04-07 | XR_ITS ---
EXAMINATION: XR chest 2V Exam Date/Time: 04/07/2022 15:29 POKER IN HISTORY: R05.9 - Cough, FOR 2 WKS, HTN, Comparison: 02/26/2007. RESULT: Lines, tubes, and devices: None. Lungs and pleura: Linear bibasilar opacities likely representing scar/atelectasis. Cardiomediastinal silhouette: Stable. Other: No acute osseous or upper abdominal finding. IMPRESSION: No acute cardiopulmonary process. Reviewed, dictated and finalized at location K. R [place]
== END 2022-04-07 15:15 | disposition home or self-care (01) ==
PROVIDERS: PCP Internal Medicine; Visit Provider Nurse Practitioner
DX: J40 Bronchitis, not specified as acute or chronic (principal); R05.9 Cough, unspecified
CPT/HCPCS: 71046

== ENCOUNTER 2023-01-29 10:00 | Outpatient (RCR) | payer MEDICARE, SELFPAY ==
--- NOTE | 2022-12-31 10:43 | OPREHPOC ---
Outpatient Therapy Plan of Care This is a Multidisciplinary Plan of Care that may contain components documented by all disciplines (PT, OT, and ST.) PT Problem 1 PT Problem #1 Knowledge Deficit PT Goal 1 Goal 1* indep with HEP 2* maintain good shoulder position with exercises PT Problem 2 PT Problem #2 Pain PT Goal 1 Goal 1* pt report R shoulder pain of 3/10 at worst 2* pt report times of NO pain 3* self assessment DASH score of 8% limitation PT Problem 3 PT Problem #3 Impaired Flexibility PT Goal 1 Goal increase flexibility of R shoulder to improve ability to do home and self care tasks, using her dominant arm: active R shoulder in standin* flexion 150' 2* abduction 150' 3* IR- reach behind her back, palm to above waist PT Problem 4 PT Problem #4 Impaired Strength PT Goal 1 Goal increase R shoulder-scapular strength: to improve position of GH joint and decrease impingement 1* pt perform 20 reps of strengthening exercises in standing and on the mat
--- NOTE | 2022-12-31 10:43 | PTOPEVAL1 ---
Assessment and note entered by Vicenta Cheng, PT Evaluation Information Assessment Status Evaluation Diagnosis R shoulder OA, impingement syndrome Onset November 11 2022 Subjective Information history of intermittent pain in R shoulder--comes and goes; In October was using her arm more, continued to hurt and did not stop; was having pain with cleaning her bottom, now is OK doing that; pain is some less; had xray of shoulder: injection R shoulder---helped a little with the pain ACTIVITY: active lifestyle, does all home and self care tasks--does everything, but has more pain; Reported Pain Level Pain Score Self Report Additional Pain Score Comments pain range in the past week: 3-5/10 constant discomfort; shoulder catches; is R handed increase pain : using arm, reaching into cabinet decrease pain: tylenol PRN, is not using heat/ice- instructed to use PRN 10-15 min sleeping is usually on her L side and raise R arm up onto her pillow; educate on use of another pillow, to decrease the angle of her shoulder/ decrease impingement Assessment PT Clinical Summary Mamta has the diagnosis of R shoulder OA, impingement. She reports history of shoulder problems, but eased and did not last this long. The injection has helped her pain. Quick DASH score of 20% limitation in activity. Pain has decreased since the onset, she is able to everything she needs to do but has more pain. Xray report states mild GH and AC joint OA, type 3 acromium. With the evaluation- she has poor positioning of shoulder with rounded posture, slight decrease in shoulder active flexion, abduction and IR, with IR the most painful. And painful arcs of flexion and abduction motions; tenderness over biceps groove. She also has some cervical pain and limited motion with rotation. Skilled PT services are indicated for modalities to decrease pain, therap
--- NOTE | 2023-01-15 10:09 | PCPTNOTE ---
Patient called to cancel today's appointment reporting she was ill.
--- NOTE | 2023-01-29 10:28 | PTOPDC ---
Assessment and note entered by Vicenta Cheng, PT Evaluation Information Assessment Status Discharge Diagnosis R shoulder OA, impingement syndrome Onset November 11 2022 Subjective Information shoulder is better, not hurt as much; need to be more faithful about doing the exercises; Reported Pain Level Pain Score Self Report Additional Pain Score Comments pain range in the past week 0-3/10, hurts in posterior aspect of shoulder increase pain noted after busy day and more activity decrease pain with sit,rest not taking any meds for shoulder; reinforced use of heat, ice only thing that is limited is with sleeping and usually put her arm over her head, cannot do that now; Assessment PT Clinical Summary Mamta has received 4 PT sessions. Compared to the initial evaluation: pain rating decreased from 3-5/10 to 0-3/10; ROM flexion and abduction is the same, and IR has increased; strength improved of R shoulder and scapula; self assessment Quick DASH improved from 20% to 9% limitation in actiivty level; education completed for HEP and posture. The goals were achieved, except shoulder active ROM. Discharge PT treatment and she is to continue with HEP. Plan of Care PT Services Indicated No
== END 2023-01-29 11:39 | disposition home or self-care (01) ==
LOC: ANHPT 10:00
PROVIDERS: PCP Internal Medicine; Visit Provider Physician Assistant Surgical
DX: M75.41 Impingement syndrome of right shoulder (principal); M19.011 Primary osteoarthritis, right shoulder
CPT/HCPCS: 97110; 97161; 97530

== ENCOUNTER 2023-03-09 00:56 | Day surgery (SDC) | payer MEDICARE, SELFPAY ==
[2023-02-23 15:30] VITALS: BMI 28.5
--- NOTE | 2023-03-06 10:34 | SUR.PREOP ---
Patient called regarding upcoming procedure. Message left on patient's voicemail regarding preop instructions, appointment times, and procedure prep.
[2023-03-09 06:59] VITALS: BP 149/65; PULSE 99; RESP 16; TEMP 36.1; O2SAT 100
[2023-03-09] MEDS: LACTATED RINGERS 1,000 ML 150 ML IV CONT (07:10)
--- NOTE | 2023-03-09 07:35 | WPDANESEPPF ---
Anes - Initial Pre Proc Eval Procedure: Operation Date: 03/09/23 08:00 Proposed Procedures p Colonoscopy - Preet Styles MD Date/Time: 03/09/23 07:35 Surgeon: Preet Styles MD Pre Op Diagnosis: hx of colon polyps Patient Data Age: 77 Gender: F Height: 1.6 m Weight: 71.8 kg Last Vital Signs Temp 97.0 F L 03/09/23 06:59 Pulse 99 03/09/23 06:59 Resp 16 03/09/23 06:59 BP 149/65 H 03/09/23 06:59 Pulse Ox 100 03/09/23 06:59 O2 Del Method Room Air 03/09/23 06:59 Allergies Allergy/AdvReac Type Severity Reaction Status Date / Time Penicillins Allergy Unknown Rash Verified 03/09/23 06:56 Sulfa (Sulfonamide Allergy Unknown Rash Verified 03/09/23 06:56 Antibiotics) Home Medications Medication Instructions Recorded Confirmed Type aspirin 81 mg tablet,delayed 81 mg PO DAILY 02/17/19 03/09/23 History release (Adult Low Dose Aspirin) cyanocobalamin (vitamin B-12) 1,000 mcg PO DAILY 11/09/19 03/09/23 History 1,000 mcg tablet (Vitamin B-12) lisinopril 10 1 tablet PO DAILY 08/22/20 03/09/23 History mg-hydrochlorothiazide 12.5 mg tablet metoprolol succinate 25 mg 50 mg PO HS 08/22/20 03/09/23 History tablet,extended release 24 hr calcium carbonate 500 mg calcium 500 mg PO .3 times a week 05/29/21 03/09/23 History (1,250 mg) chewable tablet (Calcium 500) cholecalciferol (vitamin D3) 50 50 mcg PO DAILY 09/05/21 03/09/23 History mcg (2,000 unit) capsule albuterol sulfate 90 mcg/actuation 1 inh inhalation Q4H PRN shortness 07/10/22 03/09/23 Rx aerosol inhaler of breath or wheezing #8.5 grams loratadine 10 mg tablet (Claritin) 10 mg PO DAILY #30 tabs 07/10/22 03/09/23 Rx atorvastatin 10 mg tablet 10 mg PO HS #90 tabs 11/24/22 03/09/23 Rx omeprazole 40 mg capsule,delayed 40 mg PO DAILY #90 caps 12/04/22 03/09/23 Rx release calcitriol 0.25 mcg capsule 0.25 mcg PO 3XW #36 caps 01/21/23 03/09/23 Rx fluticasone propionate 50 2 spray intranasal DAILY PRN 02/23/23 03/09/23 History mcg/actuation nasal Congestion spray,suspension (Flonase Allergy Relief) terbinafine HCl 1 % topical cream 1 applic topical BID PRN fungus 02/23/23 03/09/23 History (Lamisil AT) Patient hx anesthesia problems: none Family hx anesthesia problems: none Results Review: All pre-operative results and documents have been reviewed as part of the pre-operative evaluation. [facility] Past Medical History Medical History Abdominal pain Adenomatous colon polyp Bloating CAD (coronary artery disease) Diarrhea Fecal urgency Gastritis Genital herpes HLD (hyperlipidemia) HTN (hypertension) Hyperglycemia Pain due to internal orthopedic prosthetic devices, implants and grafts, subsequent encounter Painful orthopaedic hardware Paroxysmal SVT (supraventricular tachycardia) Prediabetes Vitamin D deficiency Surgical History Surgical History H/O total hysterectomy History of ankle surgery History of cholecystectomy Family History Family History Sibling Patient's sister is in good health Malignant neoplasm of prostate Other Hypertension Social History Social History Years smoked: 10 Smoking status: Former smoker Tobacco type: cigarettes Smoking end date: 03/30/97 Additional smoking assessment comments: >1PK/DAY/X10YRS - QUIT 1997 Alcohol intake: never Substance use: never Substance use type: does not use Lack of Transportation: No Lack of Food: Never True Current Housing: I Have Housing Concerned About Future Housing: No Difficulty Paying Gas/Electric Bills: No Difficulty Paying for Meds: No Currently Unemployed: No Education: High School Diploma/GED Difficulty w/ Childcare or Family
--- NOTE | 2023-03-09 07:55 | PM.HPGS ---
History of Present Illness History of Present Illness Consent: Risks, benefits, and alternatives have been discussed and questions answered. Patient agrees to proceed with procedure. Chief complaint: hx of colon polyps Narrative: Mamta Ames is a 77 year old female with colon polyps in 2020 Review of Systems Constitutional: Constitutional: Denies headache(s) and Denies weakness Eyes: Eyes: Denies blurry vision ENT: Reports Normal hearing present, Denies headache(s) and Denies neck pain Cardiovascular: Cardiovascular: Denies chest pain and Denies dyspnea Respiratory: Respiratory: Denies dyspnea Gastrointestinal: Gastrointestinal: Reports no additional gastrointestinal complaints Genitourinary: Genitourinary: Denies dysuria Musculoskeletal: Musculoskeletal: Denies neck pain Integumentary/Breasts: Skin/Breast: Denies dry skin Neurologic: Reports Normal hearing present, Denies headache(s) and Denies weakness Psychiatric: Psychiatric: Denies anxiety Endocrine: Endocrine: Denies change in body appearance Hematologic/Lymphatic: Hematologic/Lymphatic: Denies easy bleeding Allergic/Immunologic: Allergic/Immunologic: Denies urticaria PMFSH Past Medical History Medical History Abdominal pain Adenomatous colon polyp Bloating CAD (coronary artery disease) Diarrhea Fecal urgency Gastritis Genital herpes HLD (hyperlipidemia) HTN (hypertension) Hyperglycemia Pain due to internal orthopedic prosthetic devices, implants and grafts, subsequent encounter Painful orthopaedic hardware Paroxysmal SVT (supraventricular tachycardia) Prediabetes Vitamin D deficiency Surgical History Surgical History H/O total hysterectomy History of ankle surgery History of cholecystectomy Family History Family History Sibling Patient's sister is in good health Malignant neoplasm of prostate Other Hypertension Social History Social History Years smoked: 10 Smoking status: Former smoker Tobacco type: cigarettes Smoking end date: 03/30/97 Additional smoking assessment comments: >1PK/DAY/X10YRS - QUIT 1997 Alcohol intake: never Substance use: never Substance use type: does not use Lack of Transportation: No Lack of Food: Never True Current Housing: I Have Housing Concerned About Future Housing: No Difficulty Paying Gas/Electric Bills: No Difficulty Paying for Meds: No Currently Unemployed: No Education: High School Diploma/GED Difficulty w/ Childcare or Family Care: No Living arrangements: with family Gender identity (if verbalized by the patient): Female Spiritual care concerns: No Meds Home Medications and Allergies Home Medications Medication Instructions Recorded Confirmed Type aspirin 81 mg tablet,delayed 81 mg PO DAILY 02/17/19 03/09/23 History release (Adult Low Dose Aspirin) cyanocobalamin (vitamin B-12) 1,000 mcg PO DAILY 11/09/19 03/09/23 History 1,000 mcg tablet (Vitamin B-12) lisinopril 10 1 tablet PO DAILY 08/22/20 03/09/23 History mg-hydrochlorothiazide 12.5 mg tablet metoprolol succinate 25 mg 50 mg PO HS 08/22/20 03/09/23 History tablet,extended release 24 hr calcium carbonate 500 mg calcium 500 mg PO .3 times a week 05/29/21 03/09/23 History (1,250 mg) chewable tablet (Calcium 500) cholecalciferol (vitamin D3) 50 50 mcg PO DAILY 09/05/21 03/09/23 History mcg (2,000 unit) capsule albuterol sulfate 90 mcg/actuation 1 inh inhalation Q4H PRN shortness 07/10/22 03/09/23 Rx aerosol inhaler of breath or wheezing #8.5 grams loratadine 10 mg tablet (Claritin) 10 mg PO DAILY #30 tabs 07/10/22 03/09/23 Rx atorvastatin 10 mg tablet 10 mg PO HS #90 tabs 11/24/22 03/09/23 Rx omeprazole 40 mg capsule,delayed
[2023-03-09 08:20] VITALS: BP 115/63; PULSE 48; RESP 20; O2SAT 99
[2023-03-09 08:30] VITALS: BP 137/66; PULSE 48; RESP 16; O2SAT 99
[2023-03-09 08:39] VITALS: BP 156/63; PULSE 49; RESP 16; O2SAT 100
--- NOTE | 2023-03-09 08:45 | SUR.PHASEII ---
pts heart rate noted to be in the 40s. pt and both state this is normal for her. states she recently wore a holter monitor that did show sinus jennifer and some arrythmias. 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
== END 2023-03-09 08:52 | disposition home or self-care (01) ==
PROVIDERS: PCP Internal Medicine; Visit Provider Internal Medicine Gastroenterology
PROC: 0DJD8ZZ Inspection of Lower Intestinal Tract, Via Natural or Artificial Opening Endoscopic (ICD-10-PCS; CPT 45378; principal; 2023-03-09 08:00)
DX: Z12.11 Encounter for screening for malignant neoplasm of colon (principal); D12.2 Benign neoplasm of ascending colon; D12.3 Benign neoplasm of transverse colon; D12.4 Benign neoplasm of descending colon; K64.8 Other hemorrhoids; E78.5 Hyperlipidemia, unspecified; I10 Essential (primary) hypertension; R73.9 Hyperglycemia, unspecified; E55.9 Vitamin D deficiency, unspecified; R73.03 Prediabetes; Z79.51 Long term (current) use of inhaled steroids; Z79.82 Long term (current) use of aspirin; Z90.49 Acquired absence of other specified parts of digestive tract; Z87.891 Personal history of nicotine dependence; Z80.42 Family history of malignant neoplasm of prostate
CPT/HCPCS: 45385; 88305; J2704; J7120

== ENCOUNTER 2023-05-28 10:12 | Outpatient (CLI) | payer MEDICARE, SELFPAY ==
--- NOTE | ~2023-05-28 | MM_ITS ---
EXAMINATION: MM screening [facility] BI w nadir HISTORY: Screening TECHNIQUE: Craniocaudal and mediolateral oblique 3-D tomosynthesis images were obtained and synthetic 2-D images were generated. CAD analysis was submitted and interpreted. COMPARISON: Comparison to multiple prior studies sequentially, with oldest reviewed study dated 07/2017. BREAST PARENCHYMAL COMPOSITION: There are scattered areas of fibroglandular density. FINDINGS: There is no evidence of suspicious mass, calcification, or architectural distortion to sugg est malignancy in either breast. There has been no suspicious interval change. IMPRESSION: 1. No mammographic evidence of malignancy. 2. Recommend routine screening mammography in one year. BI-RADS Category 1: Negative Reviewed, dictated and finalized at location A. [employer]
== END 2023-05-28 10:13 | disposition home or self-care (01) ==
PROVIDERS: PCP Internal Medicine; Visit Provider Internal Medicine
DX: Z12.31 Encounter for screening mammogram for malignant neoplasm of breast (principal)
CPT/HCPCS: 77063; 77067

== ENCOUNTER 2023-07-01 09:30 | Emergency (ER) | payer MEDICARE, SELFPAY ==
--- NOTE | ~2023-07-01 | XR_ITS ---
EXAMINATION: XR chest 2V DATE: 07/01/2023 10:15 INDICATION: Shortness of breath and cough. Palpitations. TECHNIQUE: Frontal and lateral views of the chest were obtained. COMPARISON: Chest 2 views 04/07/2022 FINDINGS: There is mild atelectasis in the lower lung zones. No pleural effusion or pneumothorax. The heart size is normal. Surgical clips in the right upper quadrant are likely from cholecystectomy. Th ere is mild chronic anterior wedging of multiple midthoracic vertebral bodies. IMPRESSION: 1. Mild atelectasis in the lower lung zones. Reviewed, dictated and finalized at location A.
--- NOTE | 2023-07-01 09:33 | ECG_ITS ---
Measurements Intervals [place] Rate: 77 P: 62 FL: 151 QRS: -11 QRSD: 98 T: 23 QT: 375 QTc: 424 Interpretive Statements SINUS RHYTHM LOW QRS VOLTAGE IN PRECORDIAL LEADS INCOMPLETE RIGHT BUNDLE BRANCH BLOCK BORDERLINE ECG COMPARED TO ECG 11/11/2019 14:59:06 NO SIGNIFICANT CHANGES Electronically Signed On 07-01-2023 14:35:41 CDT by Juan Antonio Ng M.D.
[2023-07-01 09:51] LABS: Basophils Absolute Auto 0.1 K/mm3 (0.0-0.1); Basophils Percent Auto 1.3 % (0.2-1.2); Eosinophils Absolute Auto 0.2 K/mm3 (0-0.3); Eosinophils Percent Auto 2.7 % (0-4.4); Hematocrit 41.2 % (37.0-47.0); Hemoglobin 13.3 g/dL (12.0-15.0); Immature Granulocyte Absolute 0.01 K/mm3 (0.00-0.031); Immature Granulocyte Percent A 0.2 % (0-0.5); Lymphocytes Absolute Auto 1.53 K/mm3 (0.9-3.2); Mean Corpuscular HGB Conc 32.3 g/dl (32-36); Mean Corpuscular Hemoglobin 30.5 pg (26-34); Mean Corpuscular Volume 94.5 fl (80-100); Mean Platelet Volume 9.3 fl (7.4-10.4); Monocytes Absolute Auto 0.5 K/mm3 (0.1-0.6); Monocytes Percent Auto 8.2 % (2.6-8.5); Neutrophils Absolute Auto 3.3 K/mm3 (1.3-6.7); Neutrophils Percent Auto 59.6 % (45.5-73.1); Platelet Count Result 324 k/mm3 (150-375); Red Blood Count 4.36 M/mm3 (4.2-5.4); Red Cell Distribution Width 12.9 % (11.5-14.5); White Blood Count 5.5 K/mm3 (4.5-10.0)
[2023-07-01 10:03] LABS: Alanine Aminotransferase 19 U/L (6-35); Albumin Level 4.2 g/dL (3.5-5.1); Alkaline Phosphatase 113 U/L (38-126); Anion Gap 4 mmol/L (4-12); Aspartate Amino Transferase 25 U/L (14-36); Bilirubin,Total 0.8 mg/dL (0.2-1.3); Blood Urea Nitrogen 20 mg/dL (7-17); Calcium 9.5 mg/dL (8.4-10.2); Carbon Dioxide 29 mmol/L (22-30); Chloride 105 mmol/L (98-107); Estimated CRCL calculation 27 ml/min; Estimated Glomerular Filt Rate 40; Glucose 113 mg/dL (65-110); Lipase 107 U/L (23-300); Potassium 4.8 mmol/L (3.4-5.0); Sodium 138 mmol/L (137-145)
[2023-07-01 10:05] LABS: Partial Thromboplastin Time 28.3 Seconds (22.3-36.8); Prothrombin Time 13.2 Seconds (11.1-14.7)
[2023-07-01 10:13] LABS: Troponin I < 0.012 ng/mL (0.000-0.034)
[2023-07-01] MEDS: ASPIRIN 81 MG CHEWABLE TABLET 324 MG PO (11:02)
[2023-07-01] MEDS: SODIUM CHLORIDE 0.9% IV 1,000 ML 999 ML IV CONT (11:04)
--- NOTE | 2023-07-01 11:11 | ED.GENADULT ---
HPI - General Adult General Chief complaint: Weakness Stated complaint: weakness, chest hurts Time Seen by Provider: 07/01/23 10:28 History of Present Illness HPI narrative: Mamta Ames is a 77 y/o female who presents today with reports of waking up today and not feeling well. She states she just feels generalized weak/tired. When she gets up to walk she is worried she will pass out. Denies any dizziness/ vision changes/ chest pain / SOB/ She adds that she also woke up with some post nasal drainage / scratchy throat and a little bit of a cough. No known fevers - felt well yesterday She states maybe earlier she felt anxious in her chest but no chest pain at this time. Related Data Home Medications Medication Instructions Recorded Confirmed aspirin 81 mg tablet,delayed 81 mg PO DAILY 02/17/19 06/10/23 release (Adult Low Dose Aspirin) cyanocobalamin (vitamin B-12) 1,000 mcg PO DAILY 11/09/19 06/10/23 1,000 mcg tablet (Vitamin B-12) lisinopril 10 1 tablet PO DAILY 08/22/20 06/10/23 mg-hydrochlorothiazide 12.5 mg tablet metoprolol succinate 25 mg 50 mg PO HS 08/22/20 06/10/23 tablet,extended release 24 hr calcium carbonate 500 mg calcium 500 mg PO .3 times a week 05/29/21 06/10/23 (1,250 mg) chewable tablet (Calcium 500) cholecalciferol (vitamin D3) 50 50 mcg PO DAILY 09/05/21 06/10/23 mcg (2,000 unit) capsule fluticasone propionate 50 2 spray intranasal DAILY PRN 02/23/23 06/10/23 mcg/actuation nasal Congestion spray,suspension (Flonase Allergy Relief) terbinafine HCl 1 % topical cream 1 applic topical BID PRN fungus 02/23/23 06/10/23 (Lamisil AT) sodium chloride 0.65 % nasal spray 1 spray intranasal BID PRN 06/10/23 06/10/23 aerosol (Saline Nasal) Allergies Allergy/AdvReac Type Severity Reaction Status Date / Time Penicillins Allergy Unknown Rash Verified 06/10/23 11:04 Sulfa (Sulfonamide Allergy Unknown Rash Verified 06/10/23 11:04 Antibiotics) Review of Systems Review of Systems: CONSTITUTIONAL: Denies fever, chills, or sweats. EYES: Denies visual changes, redness, or discharge. ENT: + Rhinorrhea, + Congestion, + scratchy throat CARDIOVASCULAR: Denies chest pain, palpitations, or edema. RESPIRATORY: Reports mild cough that started today denies dyspnea. GASTROINTESTINAL: Denies abdominal pain, nausea, vomiting, or diarrhea. GENITOURINARY: Denies dysuria or hematuria. SKIN: Denies rash or itching. MUSCULOSKELETAL: Denies back pain, joint pain, or myalgia. NEUROLOGIC: Denies headache, numbness, dizziness, or weakness. PSYCHIATRIC: Denies anxiety or depression. [facility] Past Medical History Medical History Abdominal pain Adenomatous colon polyp Bloating CAD (coronary artery disease) Diarrhea Fecal urgency Gastritis Genital herpes HLD (hyperlipidemia) HTN (hypertension) Hyperglycemia Pain due to internal orthopedic prosthetic devices, implants and grafts, subsequent encounter Painful orthopaedic hardware Paroxysmal SVT (supraventricular tachycardia) Prediabetes Vitamin D deficiency Surgical History Surgical History H/O total hysterectomy History of ankle surgery History of cholecystectomy Family History Family History Sibling Patient's sister is in good health Malignant neoplasm of prostate Other Hypertension Social History Social History Years smoked: 10 Smoking status: Former smoker Tobacco type: cigarettes Smoking end date: 03/30/97 Additional smoking assessment comments: >1PK/DAY/X10YRS - QUIT 1997 Alcohol intake: never Substance use: never Substance use type: does not use Living arrangements: with family Gender identity (if verbalized by the patient): Female Spiritual care concerns: No Exam Narrative: GENERAL: We
[2023-07-01 11:15] VITALS: BP 164/63; PULSE 91
[2023-07-01 11:18] VITALS: BP 167/79; PULSE 105
[2023-07-01 11:19] VITALS: BP 164/71; PULSE 99
[2023-07-01 11:42] LABS: Influenza A QL RT-PCR Negative (Negative); Influenza B QL RT-PCR Negative (Negative); RSV RNA, RT-PCR Negative (Negative); SARS-CoV-2 RNA PCR Negative (Negative)
[2023-07-01 11:59] VITALS: BP 197/83
[2023-07-01 12:08] LABS: Appearance Urine Clear (Clear); Bilirubin Urine Negative (Negative); Blood Urine Negative (Negative); Color Urine Yellow (Yellow); Glucose Urine UA Negative (Negative); Ketones Urine Negative (Negative); Leukocyte Esterase Ur Negative LEU/UL (Negative); Nitrate Urine Negative (Negative); Protein Urine Negative (Negative); Specific Grav Ur 1.008 (1.001-1.035); pH Urine 6.5 (5.0-9.0)
[2023-07-01 12:40] LABS: Add Urine Microscopic? NO
--- NOTE | 2023-07-01 12:40 | ECG_ITS ---
Measurements Intervals [place] Rate: 53 P: 59 [place]: 153 QRS: 9 QRSD: 100 T: 34 QT: 436 QTc: 411 Interpretive Statements SINUS BRADYCARDIA INCOMPLETE RIGHT BUNDLE BRANCH BLOCK [90+ ms QRS DURATION, TERMINAL R IN V1/V2, 40+ ms S IN I/aVL/V4/V5/V6] COMPARED TO ECG 07/01/2023 09:37:18 SINUS BRADYCARDIA NOW PRESENT Electronically Signed On 07-02-2023 12:54:33 CDT by Anneliese Cobb M.D.
[2023-07-01 13:05] LABS: Troponin I < 0.012 ng/mL (0.000-0.034)
[2023-07-01 13:59] VITALS: BP 160/66; PULSE 53; RESP 14; O2SAT 100
== END 2023-07-01 14:03 | disposition home or self-care (01) ==
PROVIDERS: Emergency Medicine; Emergency Provider Nurse Practitioner Family; PCP Internal Medicine
DX: B34.9 Viral infection, unspecified (principal); Z79.82 Long term (current) use of aspirin; I25.10 Atherosclerotic heart disease of native coronary artery without angina pectoris; E78.5 Hyperlipidemia, unspecified; I10 Essential (primary) hypertension; E55.9 Vitamin D deficiency, unspecified; Z87.891 Personal history of nicotine dependence; Z20.822 Contact with and (suspected) exposure to COVID-19
CPT/HCPCS: 36415; 71046; 80053; 81003; 83690; 84484; 85025; 85610; 85730; 87637; 93005; 96360; 99284; A9270; J7030

== ENCOUNTER 2023-11-16 07:48 | Outpatient (CLI) | payer MEDICARE, SELFPAY ==
--- NOTE | ~2023-11-16 | DEXA_ITS ---
Bone Density Report Name: HUMPHREY BURLESON Age: 77 Sex: Female Ethnicity: White Date of : 1945 Indication: osteopenia; parental hip fracture; hysterectomy; Referring Provider: ISAEL ALONSO Study: Bone densitometry was performed. Exam Date: November 16, 2023 Accession number: [id number] Bone Density: Region BMD T-score Z-score Classification AP Spine(L1-L4) 0.863 -1.7 0.9 Osteopenia Femoral Neck (Left) 0.641 -1.9 0.3 Osteopenia Total Hip (Left) 0.759 -1.5 0.4 Osteopenia Femoral Neck (Right) 0.657 -1.7 0.5 Osteopenia Total Hip (Right) 0.746 -1.6 0.3 Osteopenia Total Hip Mean 0.752 -1.6 0.4 Osteopenia World Health Organization criteria for BMD impression classify patients as: Normal (T-score at or above -1.0), Osteopenia (T-score between -1.0 and -2.5), or Osteoporosis (T-score at or below -2.5). 10-year Fracture Risk(1): Major Osteoporotic Fracture 24% Hip Fracture 14% Reported Risk Factors: [place] (), Neck BMD=0.641, BMI=29.2, parental fracture (1) FRAX(R) Version 3.08. Fracture probability calculated for an untreated patient. Fracture probability may be lower if the patient has received treatment. Previous Exams: Region Exam Age BMD T-score BMD Change BMD Change Date g/cm2 vs Baseline vs Previous AP Spine (L1-L4) 11/16/2023 77 0.863 -1.7 0.038 (4.6%)* -0.031 (-3.5%) 08/15/2021 75 0.895 -1.4 0.070 (8.4%)* 0.070 (8.4%)* 04/19/2015 69 0.825 -2.0 Total Hip(Left) 11/16/2023 77 0.759 -1.5 0.031 (4.3%)* 0.078 (11.5%)* 08/15/2021 75 0.681 -2.1 -0.047 (-6.5%) -0.047 (-6.5%) 04/19/2015 69 0.728 -1.8 Total Hip(Right) 11/16/2023 77 0.746 -1.6 0.046 (6.5%)* -0.019 (-2.5%) 08/15/2021 75 0.765 -1.5 0.065 (9.2%)* 0.065 (9.2%)* 04/19/2015 69 0.700 -2.0 *Denotes significance at 95% confidence level, LSC for AP Spine = 0.022 g/cm2, LSC for Total Hip = 0.027 g/cm2 Clinical Information Provided by Patient: Parent has had a hip fracture Has used the following medications: Vitamin D, Calcium Has the following medical conditions: Hysterectomy Patient maximum height was 63.0 Menopause Age: 50 No regular weight bearing exercise Does not regularly consume dairy products Drinks caffeinated beverages Onset of menses at age 13 Number of children 4 Impression: The patient has low bone mass, based on the Left Femoral Neck T-score. The patient has an estimated ten-year ris
== END 2023-11-16 07:49 | disposition home or self-care (01) ==
LOC: ANHIMG 07:49
PROVIDERS: PCP Internal Medicine; Visit Provider Nurse Practitioner
DX: M81.0 Age-related osteoporosis without current pathological fracture (principal); M85.88 Other specified disorders of bone density and structure, other site; M85.852 Other specified disorders of bone density and structure, left thigh; M85.851 Other specified disorders of bone density and structure, right thigh
CPT/HCPCS: 77080

== ENCOUNTER 2024-06-02 11:44 | Outpatient (CLI) | payer MEDICARE, SELFPAY ==
--- NOTE | ~2024-06-02 | XR_ITS ---
EXAMINATION: XR chest 2V DATE: 06/02/2024 11:57 INDICATION: Acute cough. TECHNIQUE: Frontal and lateral views of the chest were obtained. COMPARISON: Chest 2 views 07/01/2023 FINDINGS: There is no pneumonia, pleural effusion, or pneumothorax. The heart size is normal. Surgica l clips in the right upper quadrant are likely from cholecystectomy. IMPRESSION: 1. No acute cardiopulmonary disease. Reviewed, dictated and finalized at location A. [facility]
--- OUTSIDE RECORDS SUMMARY | 2024-06-02 13:18 | XMS_ITS | Clinical Summary ---
Author Organization [facility] Address [address] [address] Care Team Providers Care Grinding Wheel Inspector Name Role Phone Andres Farrar MD Unavailable Surya Carlson DO Primary Care Provider [phone] Source Comments [facility],non-[facility] Affiliates and Associated Physician Practices is amultiple site organization consisting of ambulatory clinics and hospital sitesin [place], [place], [place] and [place]. This disclosure is being madepursuant to the Care Everywhere program and may not contain all information available regarding this patient. Last updated 17.[facility] Allergies Active Allergy Reactions Criticality Noted Date Comments Sulfa Drugs 12/18/2010 Medications * Be aware that medications may not be up to date on this document. Alwaysverify current medications with the patient. Medication Sig Dispensed Refills Start Date End Date Status losartan-hydrochlorothi azide (HYZAAR) 100-25 MG tablet Take 1 Tab by mouth once daily. Active pantoprazole EC (PROTONIX) 40 MG tablet Take 40 mg by mouth once daily. Active multivitamin daily (THERAGRAN) tablet Take 1 Tab by mouth daily with food. Active Calcium Carbonate-Vit D-Min (CALCIUM 1200 PO) Take by mouth. Active metoprolol tartrate IR (LOPRESSOR) 25 MG tablet Take 0.5 Tabs by mouth 2 times daily. 180 Tab 3 03/25/2012 Active Active Problems Problem Noted Date Diagnosed Date Closed displaced fracture of phalanx of left ind ex finger 02/20/2015 Gallbladder polyp 08/29/2011 Family History Medical History Relation Name Comments Cancer - Breast Neg Hx Social History Tobacco Use Types Packs/Day Years Used Date Smoking Tobacco: Former Cigarettes Q uit: 03/30/1996 Alcohol Use Standard Drinks/Week Comments Yes 0.8 (1 standard drink = 0.6 oz p ure alcohol) socially Sex and Gender Information Value Date Recorded Sex Assigned at Not on file Gender Identity Not on file Sexual Orientation Not on file Last Filed Vital Signs Vital Sign Reading Time Taken Comments Blood Pressure 142/80 03/25/2012 11:05 AM [employer] Pulse 50 03/25/2012 11:05 AM [employer] Temperature 36.5 C (97.7 F) 08/30/2011 12:39 PM CDT Respiratory Rate 16 08/30/2011 12:39 PM CDT Oxygen Saturation 98% 03/25/2012 11:05 AM [employer] Inhaled Oxygen Concentration - - Weight 61.2 kg (135 lb) 02/20/2015 9:40 AM [employer] Height 160 cm (5' 3 ) 02/20/2015 9:40 AM [employer] Body Mass Index 23.91 02/20/2015 9:40 AM [employer] Plan of Treatment Health Maintenance Due Date Last Done Comments BONE DENSITY TESTING 1945 HEPATITIS C SCREENING 12/17/1963 DTAP/TDAP/TD VACCINES (1 - Tdap) 1964 PNEUMOCOCCAL VACCINE 50+ (1 of 1 - PCV) 12/22/1995 ZOSTER VACCINE (1 of 2) 12/22/1995 Respiratory Syncytial Virus (RSV) Vaccine Pt: or over 60 yrs (1 - 1-dose 75+ series) 2020 COVID-19 VACCINE ( - 2023-2 5 season) 2023 INFLUENZA VACCINE (#1) 2023 12/30/2012 DEPRESSION SCREENING 03/30/2024 HEPATITIS B VACCINE Aged Out No longe r eligible based on patient's age to complete this topic HIB VACCINE Aged Out No longer eligi ble based on patient's age to complete this topic HPV VACCINE Aged Out No longer eligi ble based on patient's age to complete this topic MENINGOCOCCAL (Group B) VACCINE Aged Out No longer eligible based on patient's age to complete this topic MENINGOCOCCAL VACCINE Aged Out No barbara lynnette eligible based on patient's age to complete this topic Advance Directives * FULL RESUSCITATION (Latest Code Status on File) Date Activated Date Inactivated Comments 08/29/2011 1:51 PM 08/31/2011 2:15 AM Care Teams Grinding Wheel Inspector Relationship Specialty Start Date End Date Surya Carlson DO PCP - General 10/01/21 Andres Farrar MD Orthopedic Surgery 02/20/15
--- OUTSIDE RECORDS SUMMARY | 2024-06-02 13:18 | XMS_ITS | Patient Health Summary ---
Author Organization [facility] Address [address] [place] [address] Care Team Providers Care Web Marketing Coordinator Name Role Phone Andres Farrar MD Unavailable Surya Carlson DO Primary Care Provider [phone] Note from [facility],non-owned Affiliates and Associated Physician Practices is amultiple site organization consisting of ambulatory clinics and hospital sitesin [place], [place] and [place]. This disclosure is being madepursuant to the Care Everywhere program and may not contain all information available regarding this patient. Last updated 17.[facility] Allergies * Sulfa Drugs Medications * Be aware that medications may not be up to date on this document. Alwaysverify current medications with the patient. * losartan-hydrochlorothiazide (HYZAAR) 100-25 MG tablet Take 1 Tab by mouth once daily. * pantoprazole EC (PROTONIX) 40 MG tablet Take 40 mg by mouth once daily. * multivitamin daily (THERAGRAN) tablet Take 1 Tab by mouth daily with food. * Calcium Carbonate-Vit D-Min (CALCIUM 1200 PO) Take by mouth. * metoprolol tartrate IR (LOPRESSOR) 25 MG tablet(Started 03/25/2012) Take 0.5 Tabs by mouth 2 times daily. 3 refills left Active Problems Problem Noted Date Diagnosed Date Closed displaced fracture of phalanx of left ind ex finger 02/20/2015 Gallbladder polyp 08/29/2011 Social History Tobacco Use Types Packs/Day Years [...] Comments Blood Pressure 142/80 03/25/2012 11:05 AM ELASTIC ASSEMBLER Pulse 50 03/25/2012 11:05 AM ELASTIC ASSEMBLER Temperature 36.5 C (97.7 F) 08/30/2011 12:39 PM CDT Respiratory Rate 16 08/30/2011 12:39 PM CDT Oxygen Saturation 98% 03/25/2012 11:05 AM ELASTIC ASSEMBLER Inhaled Oxygen Concentration - - Weight 61.2 kg (135 lb) 02/20/2015 9:40 AM ELASTIC ASSEMBLER Height 160 cm (5' 3 ) 02/20/2015 9:40 AM ELASTIC ASSEMBLER Body Mass Index 23.91 02/20/2015 9:40 AM ELASTIC ASSEMBLER Procedures * XR HAND LEFT 3VW OR MORE(Performed 03/13/2015) Performed for Closed displaced fracture of middle phalanx of left index finger, sequela * IMAGING/RADIOLOGY/XRAY RESULTS ORDER(Performed 02/18/2015) * MAMMO BILAT SCREENING(Performed 03/14/2013) Performed for Other screening mammogram * MAMMO BILAT SCREENING(Performed 03/01/2012) Performed for Other screening mammogram * CARDIAC RHYTHM STRIP ORDER(Performed 09/01/2011) * CARDIAC EKG ORDER(Performed 09/01/2011) * ECHOCARDIOGRAM 2D WITH DOPPLER(Performed 08/30/2011) Performed for PSVT (paroxysmal supraventricular tachycardia) * TROPONIN I(Performed 08/29/2011) * TROPONIN I(Performed 08/29/2011) * IP CONSULT TO CARDIOLOGY(Performed 08/29/2011) * MYOGLOBIN BLOOD(Performed 08/29/2011) * R/O [place] PROFILE(Performed 08/29/2011) * EKG 12-LEAD(Performed 08/29/2011) Performed for Cholesterolosis of gallbladder, Nonspecific abnormal electrocardiogram (ECG) (EKG) * GROSS + MICRO EXAM(Performed 08/29/2011) * GROSS + MICRO EXAM(Performed 08/29/2011) * BASIC METABOLIC PANEL (CALCIUM TOTAL)(Performed 08/29/2011) * NM HEPATOBILIARY W EF(Performed 08/05/2011) Performed for Abdominal pain, unspecified site * US ABDOMEN LIMITED(Performed 08/05/2011) Performed for Abdominal pain, unspecified site * ENDOSCOPY, COLON, SCREENING(Performed 08/04/2011) * EGD(Performed 08/04/2011) * GROSS + MICRO EXAM(Performed 08/04/2011) * HELICOBACTER PYLORI UREASE(Performed 08/04/2011) * MAMMO BILAT SCREENING(Performed 02/11/2011) Performed for Other screening mammogram * XR SHOULDER BILAT 2VW OR MORE(Performed 12/18/2010) Performed for Pain in joint, shoulder region * GROSS + MICRO EXAM(Performed 10/29/2001) Results * XR HAND 3+ VW LEFT (03/13/2015 10:20 AM ELASTIC ASSEMBLER) Anatomical Region Laterality Modality Wrist / Hand Radiographic Cherry ging Narrative 03/13/2015 11:51 AM ELASTIC ASSEMBLER Aide Rose, RT(R) 03/13/2015 11:51 AM See progress notes for results Andres Farrar MD DIAGNOSTIC IMAGING O RDERABLES * IMAGING/RADIOLOGY/XRAY RESULTS ORDER (02/18/2015) Anatomical Region Laterality Modality Other Provider Unknown IMAGING * MAMM SCREENING DIGITAL IMAGE BILAT G0202 (03/14/2013 1:39 PM ELASTIC ASSEMBLER) Only the most recent of3 resultswithin the time period is included. Anatomical Region Laterality Modality Breast Bilateral Mammography 03/14/2013 3:49 PM ELASTIC ASSEMBLER Impressions 03/14/2013 3:50 PM ELASTIC ASSEMBLER No mammographic evidence of malignancy. BI-RADS Category 1: Negative examination. Return for mammograms in one year or sooner if clinically indicated. Narrative 03/14/2013 3:50 PM ELASTIC ASSEMBLER Bilateral mammography. Most recent comparison: 2011 History: Screening mammogram. Technique: Bilateral Breasts. Mammography views included: CC and MLO. Images interpreted with CAD. Findings: Breast composition: Heterogeneously dense. No suspicious microcalcifications, masses or areas of architectural distortion. Procedure Note Joseluis Pickard MD - 03/14/2013 Bilateral mammography. Most recent comparison: 2011 History: Screening mammogram. Technique: Bilateral Breasts. Mammography views included: CC and MLO. Images interpreted with CAD. Findings: Breast composition: Heterogeneously dense. No suspicious microcalcifications, masses or areas of architectural distortion. IMPRESSION No mammographic evidence of malignancy. BI-RADS Category 1: Negative examination. Return for mammograms in one year or sooner if clinically indicated. Homero Corrigan MD MAMMO ORDERABLES * CARDIAC RHYTHM STRIP ORDER (09/01/2011 12:24 PM CDT) Narrative Transcriptions Document, Scanned - 09/01/2011 9:40 AM CDT Document, Scanned - 09/01/2011 12:24 PM CDT Scanned Document CARDIAC SERVICES ORD ERABLES * CARDIAC EKG ORDER (09/01/2011 9:40 AM CDT) Narrative Transcriptions Document, Scanned - 09/01/2011 9:40 AM CDT Scanned Document CARDIAC SERVICES ORD ERABLES * ECHOCARDIOGRAM 2D WITH DOPPLER (08/30/2011 9:43 AM CDT) 08/30/2011 9:43 AM CDT Narrative [facility] - 08/30/2011 10:57 AM CDT [address] [address] Transthoracic Echocardiogram 2D, M-mode, Doppler, and Color Doppler Date of Service: 08/30/2011 [id number] 1945 Age: 65 years Gender: Female Race: 2 Height: 63 in Weight: 152 lb BSA: 1.72 m Diagnoses: 427.0 - PAROX ATRIAL TACHYCARDIA CRM TECHNICAL LEAD: Karla Duran RDCS READING PHYSICIAN: Randolph Finch MD REFERRING PHYSICIAN: Landon Parsons MD Summary: - Left ventricle: - Systolic function was normal. Ejection fraction was estimated in the range of 65 % to 70 %. - There were no regional wall motion abnormalities. - Mitral valve: - There was mild to moderate regurgitation. - Right ventricle: - Systolic pressure was at the upper limits of normal. Estimated peak pressure was 35 mmHg. - Tricuspid valve: - There was mild regurgitation. History: Prior history: HTN Procedure: The study was performed in the ROOM 2252 @ 09:43. The transthoracic approach was used. The study included complete 2D imaging, M-mode, complete spectral Doppler, and color Doppler. Left ventricle: Size was normal. Systolic function was normal. Ejection fraction was estimated in the range of 65 % to 70 %. There were no regional wall motion abnormalities. Wall thickness was normal. Doppler: Left ventricular diastolic function parameters were normal. Aortic valve: The valve was trileaflet. Leaflets exhibited normal thickness and normal cuspal separation. Doppler: Transaortic velocity was within the normal range. There was no stenosis. No regurgitation was evident. Aorta: The root exhibited normal size. Mitral valve: Valve structure was normal. There was normal leaflet separation. Doppler: The transmitral velocity was within the normal range. There was no evidence for stenosis. There was mild to moderate regurgitation. Left atrium: Size was normal. Right atrium: Size was normal. Right ventricle: The size was normal. Systolic function was normal. Wall thickness was normal. Doppler: Systolic pressure was at the upper limits of normal. Estimated peak pressure was 35 mmHg. Tricuspid valve: The valve structure was normal. There was normal leaflet separation. Doppler: The transtricuspid velocity was within the normal range. There was no evidence for tricuspid stenosis. There was mild regurgitation. Pulmonic valve: Not well visualized. System measurement tables CW AV Vmax: 1.4 m/s AV maxP.7 mmHg PV Vmax: 0.9 m/s PV maxP mmHg TR Vmax: 2.4 m/s TR maxP.5 mmHg MM Ao Diam: 2.5 cm IVSd: 0.7 cm LA Diam: 3 cm LA/Ao: 1.2 LVIDd: 5.3 cm LVIDs: 3 cm LVPWd: 1 cm PW LVOT Vmax: 1 m/s LVOT maxP.4 mmHg MV A Flavio: 0.4 m/s MV Dec Kingman: 2.8 m/s2 MV DecT: 292.2 ms MV E Flavio: 0.8 m/s MV E/A Ratio: 1.9 MV PHT: 84.7 ms MVA By PHT: 2.6 cm2 Prepared and signed by Randolph Finch MD Signed 08/30/2011 10:57:09 Procedure Note Randolph Finch MD - 08/30/[address] [address] Transthoracic Echocardiogram 2D, M-mode, Doppler, and Color Doppler Date of Service: 08/30/2011 Patient: MAMTA BURLESON : 1945 Age: 65 years Gender: Female Race: 2 Height: 63 in Weight: 152 lb BSA: 1.72 m Diagnoses: 427.0 - PAROX ATRIAL TACHYCARDIA CRM TECHNICAL LEAD: Karla Duran RDCS READING PHYSICIAN: Randolph Finch MD REFERRING PHYSICIAN: Landon Parsons MD Summary: - Left ventricle: - Systolic function was normal. Ejection fraction was estimated in the range of 65 % to 70 %. - There were no regional wall motion abnormalities. - Mitral valve: - There was mild to moderate regurgitation. - Right ventricle: - Systolic pressure was at the upper limits of normal. Estimated peak pressure was 35 mmHg. - Tricuspid valve: - There was mild regurgitation. History: Prior history: HTN Procedure: The study was performed in the ROOM 2252 @ 09:43. The transthoracic approach was used. The study included complete 2D imaging, M-mode, complete spectral Doppler, and color Doppler. Left ventricle: Size was normal. Systolic function was normal. Ejection fraction was estimated in the range of 65 % to 70 %. There were no regional wall motion abnormalities. Wall thickness was normal. Doppler: Left ventricular diastolic function parameters were normal. Aortic valve: The valve was trileaflet. Leaflets exhibited normal thickness and normal cuspal separation. Doppler: Transaortic velocity was within the normal range. There was no stenosis. No regurgitation was evident. Aorta: The root exhibited normal size. Mitral valve: Valve structure was normal. There was normal leaflet separation. Doppler: The transmitral velocity was within the normal range. There was no evidence for stenosis. There was mild to moderate regurgitation. Left atrium: Size was normal. Right atrium: Size was normal. Right ventricle: The size was normal. Systolic function was normal. Wall thickness was normal. Doppler: Systolic pressure was at the upper limits of normal. Estimated peak pressure was 35 mmHg. Tricuspid valve: The valve structure was normal. There was normal leaflet separation. Doppler: The transtricuspid velocity was within the normal range. There was no evidence for tricuspid stenosis. There was mild regurgitation. Pulmonic valve: Not well visualized. System measurement tables CW AV Vmax: 1.4 m/s AV maxP.7 mmHg PV Vmax: 0.9 m/s PV maxP mmHg TR Vmax: 2.4 m/s TR maxP.5 mmHg MM Ao Diam: 2.5 cm IVSd: 0.7 cm LA Diam: 3 cm LA/Ao: 1.2 LVIDd: 5.3 cm LVIDs: 3 cm LVPWd: 1 cm PW LVOT Vmax: 1 m/s LVOT maxP.4 mmHg MV A Flavio: 0.4 m/s MV Dec Kingman: 2.8 m/s2 MV DecT: 292.2 ms MV E Flavio: 0.8 m/s MV E/A Ratio: 1.9 MV PHT: 84.7 ms MVA By PHT: 2.6 cm2 Prepared and signed by Randolph Finch MD Signed 08/30/2011 10:57:09 Landon Parsons MD ECHO ORDERABLES Performing Organization Address City/[facility] Co de Phone Number [facility] * TROPONIN I (08/29/2011 11:27 PM CDT) Only the most recent of2 resultswithin the time period is included. Troponin I < 0.015 SEE BELOW ng/mL [facility] Comment: <0.10 Normal 0.10-0.99 Indeterminate >= 1.0 Abnormal Blood specimen (specimen) BLOOD SPECIMEN / Unknown 08/29/2011 11:27 PM CDT 08/29/2011 11:32 PM CDT Marty Ortega DO LAB - CHEMISTRY ORD ERABLES [facility] [address] [place] [address] * IP CONSULT TO CARDIOLOGY (08/29/2011 2:51 PM CDT) Narrative Landon Parsons MD - 08/29/2011 2:51 PM CDT Landon Parsons MD 08/29/2011 2:51 PM Reason for Evaluation: Narrow complex tachycardia. History of Present Illness: The patient is a very pleasant 65 y.o. female with a history including hypertension, GERD, who underwent elective laparoscopic cholecystectomy this morning. Postoperatively she was noted to have intermittent episodes of narrow complex tachycardia with heart rate up to 170 bpm. The patient is asymptomatic from this standpoint, but reports previous palpitations , mostly at night. Prior Medical History: Past Medical History Diagnosis Date Acid reflux Colon polyps HTN (hypertension) Arthritis Prior Surgical History: Past Surgical History Procedure Date Colonoscopy Hysterectomy Cholecystectomy, laparoscopic 08/29/2011 Home Medications: Prior to Admission medications Medication Sig Start Date End Date Taking? Authorizing Provider multivitamin daily (THERAGRAN) tablet Take 1 Tab by mouth daily with food. Yes Historical Provider, losartan-hydrochlorothiazide (HYZAAR) 100-25 MG tablet Take 1 Tab by mouth once daily. Yes Historical Provider, pantoprazole EC (PROTONIX) 40 MG tablet Take 40 mg by mouth once daily. Yes Historical Provider, Allergies: Allergies Allergen Reactions Sulfa Drugs Social History: History Substance Use Topics Smoking status: Former Smoker Quit date: 03/30/1996 Smokeless tobacco: Not on file Alcohol Use: 0.5 oz/week 1 Glasses of wine per week socially Family History: No family history on file. Review of Symptoms: The patient reports palpitations, but denies exertional dyspnea, orthopnea, PND, lower extremity edema, claudication, near-syncope or syncope, TIA, GI or symptoms. Physical Exam: BP 145/73 Pulse 73 Temp 97.3 F Resp 13 Wt 152 lb (68.947 kg) BMI 26.93 kg/m2 General appearance: alert, cooperative, no distress Lungs: breath sounds normal and symmetric; no rales or wheezes Heart: regular rhythm, normal S1 and S2, without murmurs, gallops or rubs Abdomen: soft without mass, non-tender, with normal bowel sounds Extremities: no clubbing, cyanosis or edema My review of labs, imaging, notes and other tests is significant for No results found for this basename: WBC:3,HGB:3,HCT:3,PLTCOUNT:3 in the last 10426 hours Component Name 08/29/11 0730 SODIUM 142 POTASSIUM 3.9 CHLORIDE 107 CO2 25 BUN 33* CREATININE 1.03 GLUCOSE 97 CALCIUM 8.7 No results found for this basename: TROPONIN:3 in the last 30259 hours No results found for this basename: INR:3 in the last 81537 hours No results found for this basename: BNP in the last 86858 hours No results found for this basename: DIGOXIN:3 in the last 45960 hours No results found for this basename: CHOL:3,TRI,HDL:3,LDLCA in the last 03813 hours No results found for this basename: TSH:3 in the last 09094 hours Assessment and Plan: 1. PSVT: likely exacerbated by catecholamine drive. Will start metoprolol 25 mg PO BID, and obtain echocardiogram to evaluate ventricular and valvular function. In the absence of structural heart disease, no further cardiac evaluation may be needed at this time. 2. Hypertension. 3. GERD. I appreciate the opportunity to participate in the care of this very pleasant patient. We will continue to follow with you. Landon Parsons MD 08/29/2011 12:22 PM Procedure Note Landon Parsons MD - 08/29/2011 12:22 PM CDT Reason for Evaluation: Narrow complex tachycardia. History of Present Illness: The patient is a very pleasant 65 y.o. female with a history includinghypertension, GERD, who underwent elective laparoscopic cholecystectomythis morning. Postoperatively she was noted to have intermittent episodesof narrow complex tachycardia with heart rate up to 170 bpm. The patientis asymptomatic from this standpoint, but reports previous palpitations ,mostly at night. Prior Medical History: Past Medical History Diagnosis Date Acid reflux Colon polyps HTN (hypertension) Arthritis Prior Surgical History: Past Surgical History Procedure Date Colonoscopy Hysterectomy Cholecystectomy, laparoscopic 08/29/2011 Home Medications: Prior to Admission medications Medication Sig Start Date End Date Taking? Authorizing Provider multivitamin daily (THERAGRAN) tablet Take 1 Tab by mouth daily with food.Yes Historical Provider, losartan-hydrochlorothiazide (HYZAAR) 100-25 MG tablet Take 1 Tab by mouthonce daily. Yes Historical Provider, pantoprazole EC (PROTONIX) 40 MG tablet Take 40 mg by mouth once daily.Yes Historical Provider, Allergies: Allergies Allergen Reactions Sulfa Drugs Social History: History Substance Use Topics Smoking status: Former Smoker Quit date: 03/30/1996 Smokeless tobacco: Not on file Alcohol Use: 0.5 oz/week 1 Glasses of wine per week socially Family History: No family history on file. Review of Symptoms: The patient reports palpitations, but denies exertional dyspnea,orthopnea, PND, lower extremity edema, claudication, near-syncope orsyncope, TIA, GI or symptoms. Physical Exam: BP 145/73 Pulse 73 Temp 97.3 F Resp 13 Wt 152 lb (68.947 kg) BMI 26.93 kg/m2 General appearance: alert, cooperative, no distress Lungs: breath sounds normal and symmetric; no rales or wheezes Heart: regular rhythm, normal S1 and S2, without murmurs, gallops orrubs Abdomen: soft without mass, non-tender, with normal bowel sounds Extremities: no clubbing, cyanosis or edema My review of labs, imaging, notes and other tests is significant for No results found for this basename: WBC:3,HGB:3,HCT:3,PLTCOUNT:3 in thelast 37060 hours Component Name 08/29/11 0730 SODIUM 142 POTASSIUM 3.9 CHLORIDE 107 CO2 25 BUN 33* CREATININE 1.03 GLUCOSE 97 CALCIUM 8.7 No results found for this basename: TROPONIN:3 in the last 25884 hours No results found for this basename: INR:3 in the last 76697 hours No results found for this basename: BNP in the last 43924 hours No results found for this basename: DIGOXIN:3 in the last 21443 hours No results found for this basename: CHOL:3,TRI,HDL:3,LDLCA in thelast 21454 hours No results found for this basename: TSH:3 in the last 77879 hours Assessment and Plan: 1. PSVT: likely exacerbated by catecholamine drive. Will start [id number] mg PO BID, and obtain echocardiogram to evaluate ventricular andvalvular function. In the absence of structural heart disease, no furthercardiac evaluation may be needed at this time. 2. Hypertension. 3. GERD. I appreciate the opportunity to participate in the care of this verypleasant patient. We will continue to follow with you. Landon Parsons MD 08/29/2011 12:22 PM Marty Ortega DO INPATIENT CONSULT O RDERABLES * (ABNORMAL) MYOGLOBIN BLOOD (08/29/2011 2:34 PM CDT) Myoglobin 165(H) <50.0 ng/mL [facility] Blood specimen (specimen) BLOOD SPECIMEN / Unknown 08/29/2011 2:34 PM CDT 08/29/2011 3:05 PM CDT Marty Ortega DO LAB - CHEMISTRY ORD ERABLES Performing Organization Address [facility] Co de Phone Number [facility] [address] [place] [phone] * (ABNORMAL) R/O [place] PROFILE (08/29/2011 12:00 PM CDT) Myoglobin 215(H) <50.0 ng/mL [facility] Troponin I < 0.015 SEE BELOW ng/mL [facility] Comment: <0.10 Normal 0.10-0.99 Indeterminate >= 1.0 Abnormal BLOOD SPECIMEN / Unknown 08/29/2011 12:00 PM CDT 08/29/2011 2:02 PM CDT Marty Ortega DO LAB - CHEMISTRY ORD ERABLES Performing Organization Address [facility] Co de Phone Number [facility] [address] [place] [phone] * EKG 12-LEAD (08/29/2011 11:35 AM CDT) Ventricular Rate 123 BPM [facility] Atrial Rate 123 BPM [facility] P-R Interval 124 ms [facility] QRS Duration ms 88 ms [facility] Q-T Interval ms 346 ms [facility] QTC Calculation (Bezet) 495 ms [facility] Calculated P [place] 79 degrees [facility] Calculated R [place] 19 degrees [facility] Calculated T [place] 15 degrees [facility] Interpretation EKG Rhythm may represent atrial tachycardia competing with sinus rhythm Low voltage QRS Poor R-Wave Progression Across Precordium (Late Transition) Abnormal ECG No previous ECGs available Confirmed by RANDOLPH FINCH ([id number]) on 08/30/2011 11:09:46 AM [facility] 08/29/2011 11:3 5 AM CDT 08/30/2011 11:09 AM CDT Narrative Transcriptions Document, Scanned - 08/30/2011 11:10 AM CDT Go Porter MD ECG ORDERABLES [facility] * GROSS + MICRO EXAM (08/29/2011 10:00 AM CDT) Only the most recent of3 resultswithin the time period is included. [facility] Pre-Op Diagnosis Biliary colic plps [facility] Post-Op Diagnosis Same [facility] Clinical Findings Same [facility] Gross Description [facility] Comment: One portion is received in Histochoice labeled gallbladder consists of a 9.2 x 2.2 x 1 cm yellow-green gallbladder with a single silver metallic clip near the 0.2 cm diameter, patent cystic duct. The gallbladder is opened to yield approximately 20 mL of yellow-red viscous bile. There are no stones identified within the gallbladder or container. The gallbladder wall is up to 0.3 cm thick and the mucosa has a velvety cazares-red appearance with a moderate amount of yellow stippling and few yellow-cazares polyps up to 0.2 cm in greatest dimension. [employer] sections are submitted. BLOCKS: A - Gallbladder LA/cwh Grossed By Juancho Jaramillo M.D. [facility] Microscopic Examination [facility] Comment: Microscopic examination corroborates the diagnosis. (NM)na Diagnosis [facility] Comment: Gallbladder, cholecystectomy: Chronic cholecystitis, cholelithiasis and cholesterolosis (NM)na 09/01/11 Read by Alison Ramachandran M.D. [facility] Released by ALISON RAMACHANDRAN, [facility] Performed By [employer] [facility] at [address] [address] [facility] ENTIRE GALLBLADDER / Unknown 08/29/2011 10:00 AM CDT Marty Ortega DO LAB - PATHOLOGY/CYT OLOGY ORDERABLES Performing Organization Address [facility] Co de Phone Number [facility] [address] [place] [phone] * (ABNORMAL) BASIC METABOLIC PANEL (CALCIUM TOTAL) (08/29/2011 7:30 AM CDT) Glucose 97 70 - 110 mg/dL [facility] BUN 33(H) 7.0 - 21.0 mg/dL [facility] Creatinine 1.03 0.5 - 1.3 mg/dL [facility] BUN/Creatinine Ratio 32.0 [facility] Sodium 142 136 - 145 mmol/L [facility] Potassium 3.9 3.5 - 5.1 mmol/L [facility] Chloride 107 98 - 107 mmol/L [facility] CO2 25 22.0 - 30.0 mmol/L [facility] Anion Gap 10 [facility] Calcium 8.7 8.5 - 10.1 mg/dL [facility] eGFR by MDRD 53.8(L) SEE BELOW mL/min/1.7 3 m2 [facility] Comment: >60 Normal Chronic Disease <60 Renal Failure <15 Blood specimen (specimen) BLOOD SPECIMEN / Unknown 08/29/2011 7:30 AM CDT 08/29/2011 8:49 AM CDT Pipo Deleon MD LAB - CHEMISTRY MINH SALDAÑA Performing Organization Address [facility] Co de Phone Number [facility] [address] [place] [phone] * NM HEPATOBILIARY WITH CCK (WITH EF) (08/05/2011 11:24 AM CDT) Anatomical Region Laterality Modality Abdomen Nuclear Medicine 08/05/2011 12:1 9 PM CDT Impressions 08/05/2011 12:19 PM CDT Gallbladder ejection fraction of 84% which is within normal limits. No biliary obstruction or other abnormality identified. Narrative 08/05/2011 12:19 PM CDT Nuclear medicine hepatobiliary scan: HISTORY: Central abdominal and back pain for the past year, nausea and bloating for the past 6 months. Evaluation for gallbladder dysfunction. Following intravenous administration of 5.5 mCi Tc 99m Choletec, hepatobiliary imaging was performed on 08/05/2011. Following intravenous administration of 1.3 mcg Kinevac, a gallbladder ejection fraction was also obtained. Comparison is made to an ultrasound right upper quadrant study done at 0924 hours earlier in the day. There is prompt uptake of activity by the liver with prompt excretion. The common bile duct is first visualized at 10 minutes. The gallbladder is first visualized at 15 minutes. The small bowel is first visualized at 45 minutes. There is continued excretion from the liver with increasing concentration within the gallbladder over the course of the study. There is no biliary obstruction identified. The calculated gallbladder ejection fraction is 84% (normal, 35% or greater), which is within normal limits. Procedure Note Surya Calhoun MD - 08/05/2011 Nuclear medicine hepatobiliary scan: HISTORY: Central abdominal and back pain for the past year, nausea and bloating for the past 6 months. Evaluation for gallbladder dysfunction. Following intravenous administration of 5.5 mCi Tc 99m Choletec, hepatobiliary imaging was performed on 08/05/2011. Following intravenous administration of 1.3 mcg Kinevac, a gallbladder ejection fraction was also obtained. Comparison is made to an ultrasound right upper quadrant study done at 0924 hours earlier in the day. There is prompt uptake of activity by the liver with prompt excretion. The common bile duct is first visualized at 10 minutes. The gallbladder is first visualized at 15 minutes. The small bowel is first visualized at 45 minutes. There is continued excretion from the liver with increasing concentration within the gallbladder over the course of the study. There is no biliary obstruction identified. The calculated gallbladder ejection fraction is 84% (normal, 35% or greater), which is within normal limits. IMPRESSION Gallbladder ejection fraction of 84% which is within normal limits. No biliary obstruction or other abnormality identified. Fabio Barajas MD NM ORDERABLES * US ABDOMEN LIMITED (08/05/2011 10:20 AM CDT) Anatomical Region Laterality Modality Abdomen Ultrasound 08/05/2011 10:3 1 AM CDT Impressions 08/05/2011 10:31 AM CDT Multiple small (1-2 mm) nonshadowing echogenicities adherent to the gallbladder wall suggesting adenomyosis and/or cholesterolosis versus small gallbladder polyps. There is associated thickening of the gallbladder wall (4 mm) with the common bile duct of normal caliber (2 mm). No deisy-cholecystic fluid is seen to suggest acute cholecystitis. The overall appearance suggests chronic cholecystitis and/or a dysfunctional gallbladder. If there is clinical concern for acute versus chronic cholecystitis and/or a dysfunctional gallbladder, further evaluation with nuclear medicine hepatobiliary imaging may provide additional information. No other abnormality identified. Narrative 08/05/2011 10:31 AM CDT Ultrasound right upper quadrant: HISTORY: Right upper quadrant pain. Ultrasound evaluation of the right upper quadrant was performed on 08/05/2011. The liver is within normal limits of size, shape and echogenicity with no focal mass or intrahepatic biliary dilatation identified. There are multiple small (1-2 mm) nonshadowing echogenicities adherent to the gallbladder wall suggesting adenomyosis and/or cholesterolosis versus small gallbladder polyps. There is associated thickening of the gallbladder wall (4 mm) with the common bile duct of normal caliber (2 mm). No deisy-cholecystic fluid is seen to suggest acute cholecystitis. The overall appearance suggests chronic cholecystitis and/or a dysfunctional gallbladder. The pancreas is within normal limits of size, shape and echogenicity with no focal mass. The right kidney is unremarkable. Procedure Note Surya Calhoun MD - 08/05/2011 Ultrasound right upper quadrant: HISTORY: Right upper quadrant pain. Ultrasound evaluation of the right upper quadrant was performed on 08/05/2011. The liver is within normal limits of size, shape and echogenicity with no focal mass or intrahepatic biliary dilatation identified. There are multiple small (1-2 mm) nonshadowing echogenicities adherent to the gallbladder wall suggesting adenomyosis and/or cholesterolosis versus small gallbladder polyps. There is associated thickening of the gallbladder wall (4 mm) with the common bile duct of normal caliber (2 mm). No deisy-cholecystic fluid is seen to suggest acute cholecystitis. The overall appearance suggests chronic cholecystitis and/or a dysfunctional gallbladder. The pancreas is within normal limits of size, shape and echogenicity with no focal mass. The right kidney is unremarkable. IMPRESSION Multiple small (1-2 mm) nonshadowing echogenicities adherent to the gallbladder wall suggesting adenomyosis and/or cholesterolosis versus small gallbladder polyps. There is associated thickening of the gallbladder wall (4 mm) with the common bile duct of normal caliber (2 mm). No deisy-cholecystic fluid is seen to suggest acute cholecystitis. The overall appearance suggests chronic cholecystitis and/or a dysfunctional gallbladder. If there is clinical concern for acute versus chronic cholecystitis and/or a dysfunctional gallbladder, further evaluation with nuclear medicine hepatobiliary imaging may provide additional information. No other abnormality identified. Fabio Barajas MD US ORDERABLES * ENDOSCOPY, COLON, SCREENING (08/04/2011 9:56 AM CDT) Narrative Transcriptions Fabio Barajas MD - 08/04/2011 9:56 AM CDT Fabio Barajas MD GI PROCEDURE ORDERAB LES Performing Organization Address [facility] de Phone Number [facility] * EGD (08/04/2011 9:51 AM CDT) Narrative Transcriptions Fabio Barajas MD - 08/04/2011 9:51 AM CDT Fabio Barajas MD GI PROCEDURE ORDERAB LES Performing Organization Address [facility] de Phone Number [facility]OS[facility] * HELICOBACTER PYLORI UREASE (08/04/2011 9:15 AM CDT) Helicobacter pylori Urease Negative at 24 Hrs Negative [facility] Miscellaneous samples (specimen) GASTRIC ANTRAL BIOPSY SPECIMEN / Unknown 08/04/2011 9:15 AM CDT 08/04/2011 10:20 AM CDT Fabio Barajas MD LAB - MICROBIOLOGY O RDERABLES Performing Organization Address [facility] Co de Phone Number 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 Procedure Note Reading, No - 12/18/2010 Three views of the right shoulder demonstrates a normal glenohumeral joint, moderate arthrosis of the acromioclavicular joint, mild osteopenia, and normal surrounding structures. 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
--- OUTSIDE RECORDS SUMMARY | 2024-06-02 13:18 | XMS_ITS | CONTINUITY OF CARE DOCUMENT ---
Author Name viki drew Address Unknown Organization [facility] Address [address] [place] [address] Phone [phone] Care Team Providers Care Pipe Fitter Supervisor Maintenance Name Role Phone Vishal Powell MD Unavailable BE LOVE DO Unavailable BE LOVE DO Unavailable PROBLEMS Condition Status Date Provider Notes SVT active Vishal Powell MD GERD active Vishal Powell MD Chest pain- abnl sress test ,inf wall ischemia, ncath , nl cors, Nl lv 07/12 active Vishal thomas MD HTN essential active Vishal Powell MD Palpitations active Vishal Powell MD Leg pain, bilateral active Vishal Powell MD Former smoker active Antony Ahmedzai PVCs active Antony Ahmedzai Dizziness active Antony Ahmedzai Cardiology examination active Antony Hongzasarah ENCOUNTERS Date Type Provider Location Encounter Diag nosis - In-person encounter Office Visit Vishal Powell MD [facility] Cardiology examination - In-person encounter Office Visit Vishal Powell MD [facility] - In-person encounter Office Visit Vishal Powell MD [facility] Former smokerPVCsDizziness - In-person encounter Office Visit Vishal Powell MD [facility] - In-person encounter Office Visit Vishal Powell MD [facility] - In-person encounter Office Visit Vishal Powell MD [facility] - In-person encounter Office Visit Vishal Powell MD [facility] - In-person encounter Office Visit Vishal Powell MD [facility] - In-person encounter Office Visit Vishal Powell MD [facility] - In-person encounter Office Visit Vishal Powell MD [facility] Leg pain, bilateral - In-person encounter Office Visit Vishal Powell MD [facility] Palpitations - In-person encounter Office Visit Vishal Powell MD [facility] - In-person encounter Office Visit Vishal Powell MD [facility] - In-person encounter Office Visit Vishal Powell MD [facility] - In-person encounter Office Visit Vishal Powell MD [facility] Chest pain- abnl sress test ,inf wall ischemia, ncath , nl cors, Nl lv 07/12 - In-person encounter Office Visit Vishal Powell MD [facility] Chest pain- abnl sress test ,inf wall ischemia, ncath , nl cors, Nl lv 07/12 - In-person encounter Office Visit Vishal Powell MD [facility] SVTGERDChest pain- abnl sress test ,inf wall ischemia, ncath , nl cors, Nl lv 07/12HTN essential VITAL SIGNS Date Observation Value Provider Body Mass Index (Ratio) 29.51 kg/m2 Scott Powell MD blood pressure, diastolic 71 mm[Hg] Harjinder rendon Chaney blood pressure, systolic 133 mm[Hg] Ivory sheldon Chaney oxygen saturation, oximetry 97 % [facility] pulse rate 68 /min [facility] Chaney blood pressure, cuff size regular Harjinder rendon Chaney weight E&M 166.6 [lb_av] Radha Chaney height E&M 63 [in_i] [facility] Chaney Body Mass Index (Ratio) 29.47 kg/m2 Scott Powell MD blood pressure, diastolic 70 mm[Hg] Ta bitha Eros blood pressure, systolic 126 mm[Hg] Tab jila Eros oxygen saturation, oximetry 96 % Dawna Eros respiratory rate E&M 12 /min Dawna Eros pulse rate 65 /min Dawna Eros weight E&M 166.4 [lb_av] Dawna Diego height E&M 63 [in_i] Dawna Eros Body Mass Index (Ratio) 29.23 kg/m2 Scott Powell MD blood pressure, diastolic 77 mm[Hg] Li nkLog blood pressure, systolic 148 mm[Hg] Donna kLog blood pressure, cuff size regular [facility] blood pressure, diastolic 77 mm[Hg] [facility] blood pressure, systolic 148 mm[Hg] [facility], oximetry 98 % Ana Eros respiratory rate E&M 16 /min Ana M iller pulse rate 63 /min Ana Eros weight E&M 165 [lb_av] Ana Diego height E&M 63 [in_i] Ana Eros Body Mass Index (Ratio) 28.94 kg/m2 Scott Powell MD blood pressure, diastolic 87 mm[Hg] [facility] ac[facility] Joe blood pressure, systolic 153 mm[Hg] Sta cy Joe oxygen saturation, oximetry 100 % Kennedi Joe pulse rate 53 /min Kennedi Joe respiratory rate E&M 18 /min Kennedi D bryn weight E&M 163.4 [lb_av] Kennedi Joe height E&M 63 [in_i] [facility] Body Mass Index (Ratio) 28.16 kg/m2 Scott Powell MD blood pressure, diastolic 87 mm[Hg] [facility] blood pressure, systolic 128 mm[Hg] [facility] oxygen saturation, oximetry 96 % [facility] respiratory rate E&M 16 /min Kennedi D bryn pulse rate 65 /min [facility] weight E&M 159 [lb_av] [facility] height E&M 63 [in_i] [facility] Body Mass Index (Ratio) 28.16 kg/m2 Scott Powell MD blood pressure, diastolic 74 mm[Hg] Sa ra Abel blood pressure, systolic 128 mm[Hg] Deborah a Abel oxygen saturation, oximetry 98 % Debo Abel respiratory rate E&M 18 /min Debo Si ms pulse rate 52 /min Debo Abel blood pressure, cuff size regular Sa ra Abel weight E&M 159 [lb_av] Debo Abel height E&M 63 [in_i] Debo Abel Body Mass Index (Ratio) 28.87 kg/m2 Scott Powell MD blood pressure, diastolic 80 mm[Hg] Chirag Palafox blood pressure, systolic 146 mm[Hg] Cathy Palafox pulse rate 72 /min Daiana walsh oxygen saturation, oximetry 96 % Daiana Palafox blood pressure, resting Yes Daniel Palafox respiratory rate E&M 18 /min Ankita Palafox weight E&M 163 [lb_av] Daiana walsh height E&M 63 [in_i] Daiana walsh Body Mass Index (Ratio) 29.05 kg/m2 Scott Powell MD blood pressure, cuff size large Ke rri Saaduenenfnatier blood pressure, diastolic 74 mm[Hg] Ke rri Saaduenenfelder blood pressure, systolic 124 mm[Hg] Layton Leblanc oxygen saturation, oximetry 98 % Chuyita Birder respiratory rate E&M 16 /min Chuyita Mayelin buitragoenenfelder pulse rate 55 /min Chuyita Sarath lder weight E&M 164 [lb_av] Chuyita Radhanenfe lder height E&M 63 [in_i] Chuyita Radhanenfe lder Body Mass Index (Ratio) 27.45 kg/m2 Scott Powell MD blood pressure, resting Yes Tons coughlin Henley blood pressure, diastolic 88 mm[Hg] To nsha Henley blood pressure, systolic 149 mm[Hg] Ton sha Henley oxygen saturation, oximetry 94 % Tonsha Henley respiratory rate E&M 16 /min Tonsha Henley pulse rate 59 /min Tonsha Henley weight E&M 155 [lb_av] Tonsha Henley height E&M 63 [in_i] Tonsha Henley temperature site temporal Mildred Tank sley temperature E&M 97.7 [degF] Mildred Tanks saba Body Mass Index (Ratio) 27.10 kg/m2 Scott Powell MD blood pressure, cuff size regular Tom Collazoby weight E&M 153 [lb_av] Shivani [place]co blood pressure, diastolic 70 mm[Hg] Tom samaniego Cecilia blood pressure, systolic 130 mm[Hg] Odalis Collazoby oxygen saturation, oximetry 97 % Shivani Cecilia respiratory rate E&M 17 /min Shivani pulse rate 64 /min Shivani Cecilia height E&M 63 [in_i] Shivani Body Mass Index (Ratio) 27.45 kg/m2 Scott Powell MD blood pressure, cuff size regular Ke rri Deana blood pressure, diastolic 70 mm[Hg] Ke rri Gruenenfnatier blood pressure, systolic 120 mm[Hg] Layton ri Deana oxygen saturation, oximetry 98 % Chuyita Leblanc respiratory rate E&M 18 /min Chuyita Mayelin husain pulse rate 62 /min Chuyita Clemens lder weight E&M 155 [lb_av] Chuyita Clemens lder height E&M 63 [in_i] Chuyita Clemens er Body Mass Index (Ratio) 27.56 kg/m2 Scott Powell MD blood pressure, diastolic 83 mm[Hg] Annette Cuellar blood pressure, systolic 158 mm[Hg] Julieta Cuellar oxygen saturation, oximetry 98 % Bon Cuellar respiratory rate E&M 18 /min Anastasiya Cuellar pulse rate 72 /min Bon sanders weight E&M 155.6 [lb_av] Bon conti height E&M 63 [in_i] Bon Hua nson Body Mass Index (Ratio) 26.57 kg/m2 Scott Powell MD blood pressure, cuff size regular Ke rri Deana blood pressure, diastolic 80 mm[Hg] Ke rri Gruenetiffanier blood pressure, systolic 150 mm[Hg] Layton ri Deana oxygen saturation, oximetry 97 % Chuyita Deana respiratory rate E&M 16 /min Chuyita G rodrigue pulse rate 55 /min Chuyita Sarath riveraer weight E&M 150 [lb_av] Chuyita Sarath riveraer height E&M 63 [in_i] Chuyita Sarath riveraer oxygen saturation, oximetry 98 % Shivani [place]ur[place] blood pressure, diastolic 57 mm[Hg] Tom isty Cecilia blood pressure, systolic 92 mm[Hg] Tomi starjun Cecilia pulse rate 61 /min Shivani [place] respiratory rate E&M 18 /min Shivani Cecilia Body Mass Index (Ratio) 26.07 kg/m2 Dequan [place] weight E&M 147.2 [lb_av] Shivani Cecilia blood pressure, diastolic 64 mm[Hg] Ke rri Radhanejúnior blood pressure, systolic 142 mm[Hg] Layton ri Deana pulse rate 48 /min Chuyita Sarath riveraer oxygen saturation, oximetry 99 % Chuyita Deana respiratory rate E&M 16 /min Chuyita G minnaenenfalberto Body Mass Index (Ratio) 24.62 kg/m2 Ferguson sarah Leblanc weight E&M 139 [lb_av] Chuyita Clemens carlos enrique Body Mass Index (Ratio) 24.44 kg/m2 Aneallison Vaughn blood pressure, diastolic 78 mm[Hg] An azul Vaughn blood pressure, systolic 187 mm[Hg] Ane kelli Vaughn pulse rate 61 /min Aneatris Roderick oxygen saturation, oximetry 96 % Aneatrkassandra Vaughn respiratory rate E&M 17 /min Aneatri s Roderick weight E&M 138 [lb_av] Aneatris Roderick Body Mass Index (Ratio) 24.62 kg/m2 Garry Vaughn blood pressure, diastolic 82 mm[Hg] An azul Vaughn blood pressure, systolic 156 mm[Hg] Ane kelli Vaughn pulse rate 60 /min Aneatris Roderick oxygen saturation, oximetry 99 % Elmaatrkassandra Vaughn respiratory rate E&M 18 /min Aneatri s Roderick weight E&M 139 [lb_av] Aneatris Roderick height E&M 63 [in_i] [facility] Vaughn ALLERGIES Allergy Name Onset Date Reaction Criticality Status PCN Low Criticality active RESULTS Date Observation Value Provider Reference Range Interpretation Location 0 thyroxine, serum, free 1.31 ng/dL [facility] 0.82-1.77 0 hemoglobin A1C, blood, as % of total hemoglobin 5.9 % [facility] 4.8-5.6 High 0 free thyroxine index 1.9 [facility] 1.2-4.9 0 triiodothyronine resin uptake 28 % [facility] 24-39 0 thyroxine, serum, total 6.7 ug/dL [facility] 4.5-12.0 0 thyroid stimulating hormone, serum 3.010 u[IU]/mL [facility] 0.450-4.500 0 lipoprotein, beta, serum, point, quantitative, calculated 140 mg/dL [facility] 0-99 High 0 very low density lipoproteins 22 mg/dL [facility] 5-40 0 HDL cholesterol, serum 51 mg/dL [facility] >39 0 triglyceride, serum, random 108 mg/dL [facility] 0-149 0 cholesterol, serum 213 mg/dL [facility] 100-199 High 0 platelet count 307 X10E3/UL [facility] 545-712 6643/01/2 0 red blood cell distribution width 13.7 % [facility] 12.3-15.4 0 mean corpuscular hemoglobin concentration, RBC 33.4 G/DL [facility] 31.5-35.7 0 mean corpuscular hemoglobin, RBC 29.4 pg [facility] 26.6-33.0 0 mean corpuscular volume, RBC 88 fL [facility] 79-97 0 hematocrit, blood 38.6 % [facility] 34.0-46.6 0 hemoglobin, blood 12.9 g/dL [facility] 11.1-15.9 0 erythrocyte (RBC) count 4.39 X10E6/UL [facility] 3.77-5.28 0 leukocyte count, blood 4.9 X10E3/UL [facility] 3.4-10.8 0 alanine aminotransferase (SGPT), serum 13 1/L [facility] 0-32 0 aspartate aminotransferase (SGOT), serum 19 1/L [facility] 0-40 0 alkaline phosphatase, serum 101 1/L [facility] 39-117 0 bilirubin, serum, total 0.3 mg/dL [facility] 0.0-1.2 0 albumin/globulin ratio, serum 1.8 [facility] 1.2-2.2 0 globulin, serum 2.3 [facility] 1.5-4.5 0 albumin, serum 4.1 g/dL [facility] 3.5-4.8 0 protein, total, serum 6.4 g/dL [facility] 6.0-8.5 0 calcium, serum 9.1 mg/dL [facility] 8.7-10.3 0 carbon dioxide, venous blood 28 mmol/L [facility] 18-29 0 chloride, serum 101 mmol/L [facility] 96-106 0 potassium, serum 5.2 mmol/L [facility] 3.5-5.2 0 sodium, serum 143 mmol/L [facility] 788-942 4212/01/2 0 urea nitrogen/creatinine ratio, serum 14 [facility] 12- 0 eGFR if not 43 mL/min/{1 .73_m2} [facility] >59 Low 0 creatinine, serum 1.26 mg/dL [facility] 0.57-1.00 High 0 urea nitrogen, blood 18 mg/dL [facility] 8- 0 blood glucose, random 107 mg/dL [facility] 65-99 High HISTORY OF MEDICATION USE Medication Status Instructions Dates Provider Indications Com ments colestipol 1 gram tablet active Antony Gelyzai metoprolol succinate 50 mg tablet extended release 24 hr active Take 1 tablet by mouth once a day 12/10 Chuyita Leblanc lisinopril-hydrochl orothiazide 20-12.5 mg tablet active TAKE 1 TABLET BY MOUTH EVERY DAY 06/17 calcitriol 0.25 mcg capsule active Antony Joshmedzai lisinopril-hydrochl orothiazide 20-12.5 mg tablet completed Take 1 tablet by mouth once a day TAKE 1 TABLET BY MOUTH DAILY 06/13 - 06/[address] [facility] metoprolol succinate 50 mg tablet extended release 24 hr completed TAKE 1 TABLET BY MOUTH DAILY 12/05 - 12/10 Chuyita Leblanc lisinopril-hydrochl orothiazide 20-12.5 mg tablet completed TAKE 1 TABLET BY MOUTH DAILY - 06/13 Radha Bui CETIRIZINE HCL 10 MG ORAL TABLET completed one tab daily 05/03 - 10/13 Chuyita Leblanc VITAMIN D TABLET completed take one pill everyother day 04/12 - 10/13 Chuyita Leblanc Vitamin B-12 1,000 mcg tablet active 1 tablet once a day 04/12 Chuyita Leblanc valacyclovir 1 gram tablet active as needed 05/20 Chuyita Nashaddiekennytiffanistanislav #5, 5 days supply, Prescribed by BE LOVE, Filled 03/19/2018 atorvastatin 10 mg tablet active Take 1 tablet by mouth once a day 11/16 Chuyita Nashtal #90, 90 days supply, Prescribed by BE LOVE, Filled 02/05/2018 lisinopril-hydrochl orothiazide 20-12.5 mg tablet completed one tab daily 05/30 - Armen May NEXIUM 40 MG ORAL CAPSULE DELAYED RELEASE completed once daily - 10/13 Chuyita Leblanc CRESTOR 10 MG ORAL TABLET completed ONE TAB. DAILY 07/10 - 10/13 Chuyita Leblanc ASPIRIN 81 MG ORAL TABLET active 1 tablet once a day 07/10 Chuyita Leblanc metoprolol succinate 50 mg tablet extended release 24 hr completed one tab. daily 06/20 - 12/05 Elenita Moutray LISINOPRIL 10 MG ORAL TABLET completed ONE TAB. DAILY - 08/12 Vishal Powell MD HYDROCHLOROTHIAZIDE 25 MG ORAL TABLET completed take one half pill every other day 08/08 - 08/12 Vishal Powell MD SOCIAL HISTORY Date Observation Value Provider alcohol use, average drinks per day social Antony [facility] alcohol use yes [facility], year quit 1990 Antony nunn number of years as a smoker 10 a Antony Collazo smoking, date started 1964 Antony barth smoking history, tot al pack/day 1 pack per week Antony Collazo cigarette use yes Antony Collazo smoking status Former smoker Antony Broussard i alcohol use, average drinks per day social Antony Collazo alcohol use yes Antony Collazo smoking, year quit 1990 Antony nunn number of years as a smoker 10 a Antony Collazo smoking, date started 1964 Antony barth smoking history, tot al pack/day 1 pack per week Antony Collazo cigarette use yes Antony Collazo smoking status Former smoker Antony Broussard i smoking status Former smoker Ana Diego social history reviewed E&M revi ewed - no changes required Antony Collazo social history reviewed E&M revi ewed - no changes required Vishal Powell MD social history E&M S moking History: Deanna martínez is a former smoker. Vishal Powell MD smoking, year quit 1990 Kennedijose angel Sales is number of years as a smoker 10 a Kennedi Joe smoking, date started 1964 Kennedi Diaz smoking history, tot al pack/day 1 pack per week Kennedi Diaz cigarette use yes Kennedi Diaz smoking status Former smoker Kenneid Joe social history E&M S moking History: Deanna martínez is a former smoker. Antony Broussardsarah smoking, year quit 1990 Kennedi Henrry is number of years as a smoker 10 a Kennedi Joe smoking, date started 1964 Kennedijose angel Diaz smoking history, tot al pack/day 1 pack per week Kennedijose angel Diaz cigarette use yes Kennedijose angel Diaz smoking status Former smoker Kennedi Diaz social history reviewed E&M revi ewed - no changes required Antony Collazo social history reviewed E&M revi ewed - no changes required Antony Collazo social history E&M S moking History: Deanna martínez is a former smoker. Armen May social history reviewed E&M revi ewed - no changes required Armen May smoking, year quit 1990 Liat Palafox number of years as a smoker 10 a Daiana Palafox smoking, date started 1965 Chelo Palafox smoking history, tot al pack/day 1 pack per week Daiana Palafox cigarette use yes Daiana ebrg smoking status Former smoker Daiana pardo alcohol use, average drinks per day social Pablo Dickinson alcohol use yes Pablo Dickinson social history E&M S moking History: Deanna martínez is a former smoker. Pablo Dickinson social history reviewed E&M revi ewed - no changes required Pablo Dickinson smoking, year quit 1990 Chuyita Jorge jin number of years as a smoker 10 a Chuyita Nashtal smoking, date started 1965 Chuyitamimi Panger smoking history, tot al pack/day 1 pack per week Chuyita Birder cigarette use yes Chuyita Wilcoxkayla dominguez smoking status Former smoker Chuyita Wilcox tiffanier social history E&M S moking History: Deanna martínez is a former smoker. Vishal Powell MD social history reviewed E&M revi ewed - no changes required Vishal Powell MD smoking, year quit 1990 Tonsha Mo ss number of years as a smoker 10 a Tonsha Henley smoking, date started 1965 Tonsha Henley smoking history, tot al pack/day 1 pack per week Tonsha Henley cigarette use yes Tonsha Henley smoking status Former smoker Tonsha Henley social history E&M S moking History: Deanna martínez is a former smoker. Vishal Powell MD social history reviewed E&M revi ewed - no changes required Vishal Powell MD smoking, year quit 1990 Shivani Walters sby number of years as a smoker 10 a Shivani Cecilia smoking, date started 1964 Shivani Cecilia smoking history, tot al pack/day 1 pack per week Shivani Cecilia cigarette use yes Shivani Cecilia smoking status Former smoker Shivani Collazoby smoking status Former smoker Vishal Powell MD social history E&M S moking History: Deanna martínez is a former smoker. Vishal Powell MD social history reviewed E&M revi ewed - no changes required Vishal Powell MD number of grandchildren Vishal Powell MD T patric Powell MD social history E&M S moking History: Deanna martínez is a former smoker. Vishal Powell MD social history reviewed E&M revi ewed - no changes required Vishal Powell MD alcohol use, average drinks per day social Bon Cuellar alcohol use yes BonJocelyne Hua marilyn smoking, year quit 1990 Bon Agarwalenson number of years as a smoker 10 a Bon Cuellar smoking, date started 1964 Whitney issac Cuellar smoking history, tot al pack/day 1 pack per week Bon Cuellar cigarette use yes Bon Agarwal on smoking status Former smoker Bon Mohr mynor social history reviewed E&M revi ewed - no changes required Vishal Powell MD alcohol use, average drinks per day social Chuyita Leblanc alcohol use yes Chuyita Clemens lder smoking, year quit 1990 Chuyita Patel annabel number of years as a smoker 10 a Chuyita Leblanc smoking, date started 1964 Chuyita Leblanc smoking history, tot al pack/day 1 pack per week Chuyita Leblanc cigarette use yes Chuyita dominguez smoking status Former smoker Chuyita garzaelder social history reviewed E&M revi ewed - no changes required Vishal Powell MD number of grandchildren Vishal Diaz MD Kr danette Brooks social history reviewed E&M revi ewed - no changes required Vishal Powell MD alcohol use, average drinks per day social Chuyita Leblanc alcohol use yes Chuyita Clemens nicoleer number of years as a smoker 10 a Chuyita Leblanc smoking history, tot al pack/day 1 pack per week Chuyita Leblanc cigarette use yes Chuyita dominguez smoking status Former smoker Chuyita garzaelder social history reviewed E&M revi ewed - no changes required Chente Vaughn smoking status Former smoker Chente spencer social history reviewed E&M revi ewed - no changes required Vishal Powell MD smoking, year quit 1990 Chente Vaughn smoking, date started 1964 Renetta Vaughn smoking history, tot al pack/day 2-3 cig Chente Vaughn cigarette use yes Chente Vaughn smoking status Former smoker Chente spencer FAMILY HISTORY Family Member Condition Mother Family History of Co ronary Artery Disease: INSURANCE PROVIDERS Payer name Policy type / Coverage type [place] [employer] [facility] [id number] ADVANCE DIRECTIVES Name Date DISCUSSED - NO DECISION MADE TREATMENT PLAN Date Name Performer [id number],S, Antony Ahmedza i [id number],B, Antony Ahmedza i [id number],S, Antony Ahmedza i [id number],S, Antony Ahmedza i [id number],S, Antony Joshmedza i [id number],B, Vishal Powell MD [id number],B, Vishal Powell MD [id number],B, Vishal Powell MD [id number],B, Vishal Powell MD [id number],B, Antony Morenomedza i [id number],S, Antony Joshmedza i [id number],S, Antony Joshmedza i [id number],S, Antony Joshmedza i [id number],B, Antony Ahmedza i [id number],S, Antony Jsohmedza i [id number],S, Antony Ahmedza i [id number],S, Antony Ahmedza i [id number],S, Antony Ahmedza i [id number],B, Armen May [id number],B, Armen May [id number],B, Armen May [id number],W, Armen May Cardiology: H er updated medication list for this problem includes: Metoprolol Succinate 50 Mg Tablet Extended Release 24 Hr (Metoprolol succinate) ..... Take 1 tablet by mouth once a day Lisinopril-hydrochlorothiazide 20-12.5 Mg Tablet (Lisinopril-hydrochlorothiazide) ..... Take 1 tablet by mouth every day [facility] Cardiology: H er updated medication list for this problem includes: Metoprolol Succinate 50 Mg Tablet Extended Release 24 Hr (Metoprolol succinate) ..... Take 1 tablet by mouth once a day Lisinopril-hydrochlorothiazide 20-12.5 Mg Tablet (Lisinopril-hydrochlorothiazide) ..... Take 1 tablet by mouth every day [facility] Cardiology: H er updated medication list for this problem includes: Metoprolol Succinate 50 Mg Tablet Extended Release 24 Hr (Metoprolol succinate) ..... Take 1 tablet by mouth once a day Lisinopril-hydrochlorothiazide 20-12.5 Mg Tablet (Lisinopril-hydrochlorothiazide) ..... Take 1 tablet by mouth every day [facility] Cardiology [facility] Cardiology: H er updated medication list for this problem includes: Metoprolol Succinate 50 Mg Tablet Extended Release 24 Hr (Metoprolol succinate) ..... Take 1 tablet by mouth once a day Lisinopril-hydrochlorothiazide 20-12.5 Mg Tablet (Lisinopril-hydrochlorothiazide) ..... Take 1 tablet by mouth every day [facility] Cardiology [facility] Cardiology: H er updated medication list for this problem includes: Lisinopril-hydrochlorothiazide 20-12.5 Mg Tablet (Lisinopril-hydrochlorothiazide) ..... Take 1 tablet by mouth every day Metoprolol Succinate 50 Mg Tablet Extended Release 24 Hr (Metoprolol succinate) ..... Take 1 tablet by mouth daily [facility] Cardiology: H er updated medication list for this problem includes: Lisinopril-hydrochlorothiazide 20-12.5 Mg Tablet (Lisinopril-hydrochlorothiazide) ..... Take 1 tablet by mouth every day Metoprolol Succinate 50 Mg Tablet Extended Release 24 Hr (Metoprolol succinate) ..... Take 1 tablet by mouth daily Antony Hongzasarah Cardiology: B P today: 126/70 P rior BP: 148/77 (02/10/2023) Labs Reviewed: C reat: 1.26 (04/18/2017) C hol: 213 (04/18/2017) HDL: 51 (04/18/2017) LDL: 140 (04/18/2017) T (04/18/2017) Her updated medication list for this problem includes: Lisinopril-hydrochlorothiazide 20-12.5 Mg Tablet (Lisinopril-hydrochlorothiazide) ..... Take 1 tablet by mouth every day Metoprolol Succinate 50 Mg Tablet Extended Release 24 Hr (Metoprolol succinate) ..... Take 1 tablet by mouth daily Antony Collazo Cardiology: H er updated medication list for this problem includes: Lisinopril-hydrochlorothiazide 20-12.5 Mg Tablet (Lisinopril-hydrochlorothiazide) ..... Take 1 tablet by mouth every day Metoprolol Succinate 50 Mg Tablet Extended Release 24 Hr (Metoprolol succinate) ..... Take 1 tablet by mouth daily [facility] [facility] Cardiology Antony [facility] Cardiology Antony [facility] Cardiology Antony Ahmedzai Cardiology Antony Ahmedzai Cardiology Antony [facility] Cardiology Vishal Powell MD Cardiology Vishal Powell MD Cardiology Vishal Powell MD Cardiology Vishal Powell MD Cardiology Antony Ahmed[facility] Cardiology Antony Ahmed[facility] Cardiology Antony [facility] Cardiology Antony [facility] Cardiology Antony Ahmed[facility]ai Cardiology Antony Ahmedzai Cardiology Antony Ahmed[facility] Cardiology Antony Ahmed[facility] Cardiology Antony [facility] Cardiology [facility] [place] Cardiology Follow up Vishal andrade MD Cardiology Follow up Vishal andrade MD Cardiology Follow up Vishal andrade MD Cardiology Vishal Powell MD Cardiology Vishal Powell MD Cardiology Vishal Powell MD Cardiology Vishal Powell MD Cardiology Vishal Powell MD Cardiology Vishal Powell MD Cardiology Vishal Powell MD Cardiology Vishal Powell MD Cardiology Vishal Powell MD Cardiology Follow up Vishal andrade MD Cardiology Follow up : B P today: 120/70 P rior BP: 158/83 (03/16/2017) Labs Reviewed: C reat: 1.26 (04/18/2017) C hol: 213 (04/18/2017) HDL: 51 (04/18/2017) Vishal Powell MD Cardiology Follow up Vishal andrade MD Cardiology: B P today: 158/83 P rior BP: 150/80 (02/26/2016) Vishal Powell MD Cardiology: H er updated medication list for this problem includes: Nexium 40 Mg Oral Capsule Delayed Release (Esomeprazole magnesium) ..... Once daily Vishal Powell MD Cardiology Vishal Powell MD Cardiology:Denies chest pain. To sue Powell MD Cardiology Follow up Vishal andrade MD Cardiology Follow up Vishal andrade MD Cardiology Follow up Vishal andrade MD Cardiology Vishal Powell MD Cardiology Vishal Powell MD Cardiology Vishal Powell MD Cardiology Vishal Powell MD Hospital Follow up : H er updated medication list for this problem includes: Aspirin 81 Mg Tabs (Aspirin) ..... One tab. daily Toprol Xl 25 Mg Tb24 (Metoprolol succinate) ..... One tab daily Lisinopril 10 Mg Tabs (Lisinopril) ..... One tab. daily Hydrochlorothiazide 25 Mg Tabs (Hydrochlorothiazide) ..... Take one half pill every other day BP today: 142/64 P rior BP: 187/78 (07/10/2014) Vishal Powell MD follow up: H er updated medication list for this problem includes: Aspirin 325 Mg Tabs (Aspirin) ..... One tab. daily Toprol Xl 25 Mg Tb24 (Metoprolol succinate) ..... One tab daily Lisinopril 10 Mg Tabs (Lisinopril) ..... One tab. daily Hydrochlorothiazide 25 Mg Tabs (Hydrochlorothiazide) ..... One tab daily BP today: 187/78 P rior BP: 156/82 (06/20/2014) Vishal Powell MD Date Name Holter Monitor 48 hr Arterial Duplex Bi-L ower EX Vitamin D, 25-Hydrox y T-4, FREE HEMOGLOBIN A1c THYROID PANEL WITH T SH, 3RD GENERATION LIPID PANEL CBC (H/H, RBC, INDIC ES, WBC, PLT) COMPREHENSIVE METABO LIC PANEL, W/EGFR Complete Echo HISTORY OF PROCEDURES Procedure Date Procedure Name Provider Procedure Notes S tatus Complex e/m visit add on Vishal Powell MD completed EKG Vishal Powell MD completed EKG Vishal Powell MD completed EKG Vishal Powell MD completed EKG Vishal Powell MD completed EKG Vishal Powell MD completed EKG Vishal Powell MD completed SNOMED-CT: 763717985 [id number] Current Medications Documented Vishal Powell MD completed SNOMED-CT: [id number] Physical Exam, Performed: Pulse Exam of Foot Vishal Powell MD completed SNOMED-CT: 760204140 [id number] Current Medications Documented Vishal Powell MD completed SNOMED-CT: [id number] Physical Exam, Performed: Pulse Exam of Foot Vishal Powell MD completed EKG Vishal Powell MD completed SNOMED-CT: [id number] Current Medications Documented Vishal Powell MD completed EKG Vishal Powell MD completed
--- OUTSIDE RECORDS SUMMARY | 2024-06-02 13:18 | XMS_ITS | Referral Summary ---
Author Organization [facility] Address [address] [place] [address] Care Team Providers Care Wash Plant Operator Name Role Phone Andres Farrar MD Unavailable Surya Carlson DO Primary Care Provider [phone] Source Comments [facility],non-[facility] Affiliates and Associated Physician Practices is amultiple site organization consisting of ambulatory clinics and hospital sitesin [place], [place], [place] and [place]. This disclosure is being madepursuant to the Care Everywhere program and may not contain all information available regarding this patient. Last updated 17.[facility] Allergies Active Allergy Reactions Criticality Noted Date [...] Comments Blood Pressure 142/80 03/25/2012 11:05 AM WIRE HARNESS DESIGN ENGINEER Pulse 50 03/25/2012 11:05 AM WIRE HARNESS DESIGN ENGINEER Temperature 36.5 C (97.7 F) 08/30/2011 12:39 PM CDT Respiratory Rate 16 08/30/2011 12:39 PM CDT Oxygen Saturation 98% 03/25/2012 11:05 AM WIRE HARNESS DESIGN ENGINEER Inhaled Oxygen Concentration - - Weight 61.2 kg (135 lb) 02/20/2015 9:40 AM WIRE HARNESS DESIGN ENGINEER Height 160 cm (5' 3 ) 02/20/2015 9:40 AM WIRE HARNESS DESIGN ENGINEER Body Mass Index 23.91 02/20/2015 9:40 AM WIRE HARNESS DESIGN ENGINEER Plan of Treatment Not on file Advance Directives * FULL RESUSCITATION (Latest Code Status on File) Date Activated Date Inactivated Comments 08/29/2011 1:51 PM 08/31/2011 2:15 AM Care Teams Wash Plant Operator Relationship Specialty Start Date End Date Surya Carlson DO PCP - General 10/01/21 Andres Farrar MD Orthopedic Surgery 02/20/15
--- OUTSIDE RECORDS SUMMARY | 2024-06-02 13:18 | XMS_ITS | Encounter Summary ---
Author Organization [facility] Address [address] [place] [address] Care Team Providers Care Market Research Senior Project Manager Name Role Phone Andres Farrar MD Unavailable [phone] Surya Carlson DO Primary Care Provider [phone] Encounter Details Date Type Department Care Team (Late st Contact Info) Description 09/08/2011 [facility] Outpatient Visit [facility] - Surgery [address] [place] [address] Marty Ortega DO [address] [facility] [address] [place] [address] Social History Tobacco Use Types Packs/Day Years Used Date Smoking Tobacco: Former Cigarettes Q uit: 03/30/1996 Alcohol Use Standard Drinks/Week Comments Yes 0.8 (1 standard drink = 0.6 oz p ure alcohol) socially Sex and Gender Information Value Date Recorded Sex Assigned at Not on file Gender Identity Not on file Sexual Orientation Not on file documented as of this encounter Plan of Treatment Not on file documented as of this encounter Visit Diagnoses Not on filedocumented in this encounter Care Teams Market Research Senior Project Manager Relationship Specialty Start Date End Date Surya Carlson DO PCP - General 10/01/21 Andres Farrar MD Orthopedic Surgery 02/20/15 documented as of this encounter
--- OUTSIDE RECORDS SUMMARY | 2024-06-02 13:18 | XMS_ITS | Clinical Summary ---
Author Organization [facility] Address [id number] [place] [id number] Care Team Providers Care Assisted Living Associate Name Role Phone Unavailable Primary Care Provider Unavailabl e Encounters Date Type Department Care Team Description 05/17/2024 External Device Data [facility] ABSTRACTION Provider, Abstract 04/21/2024 External Device Data [facility] ABSTRACTION Provider, Abstract 04/20/2024 External Device Data [facility] ABSTRACTION Provider, Abstract 04/19/2024 External Device Data [facility] ABSTRACTION Provider, Abstract from Last 3 Months Social History Tobacco Use Types Packs/Day Years Used Date Smoking Tobacco: Never Assessed Comments Unknown Sex and Gender Information Value Date Recorded Sex Assigned at Not on file Legal Sex Female 9:38 AM CDT Gender Identity Not on file Sexual Orientation Not on file Plan of Treatment Health Maintenance Due Date Last Done Comments PNEUMOCOCCAL VACCINE 50+ YEARS (1 of 1 - PCV) 12/21/18 96 OSTEOPOROSIS SCREENING 2010 ZOSTER VACCINE (2 of 3) 05/25/2012 03/30/2012 RSV VACCINE (60+ or ) (1 - 1-dose 75+ series) 2020 INFLUENZA VACCINE (#1) 2023 DTAP/TDAP/TD VACCINES (2 - Td or Tdap) 08/31/2024
--- OUTSIDE RECORDS SUMMARY | 2024-06-02 13:18 | XMS_ITS | Clinical Summary ---
Author Organization [facility] Address [address] [place] [id number] Phone Care Team Providers Care Kids Activities Coach Name Role Phone MacrinaSurya shepherd Primary Care Provider [phone] Allergies Active Allergy Reactions Criticality Noted Date Comments Penicillins Rash Low 06/12/2020 Sulfa Antibiotics Rash Low 12/18/2010 Medications Medication Sig Dispensed Refills Start Date End Date Status amLODIPine (NORVASC) 5 MG tablet Take 5 mg by mouth 1 (one) time each day 05/31/2020 Active atorvastatin (LIPITOR) 10 MG tablet Take 10 mg by mouth every night 04/30/2020 Active omeprazole (PriLOSEC) [address] capsule Take 20 mg by mouth 1 (one) time each day 05/09/2020 Active lisinopril-hydroCHLORO thiazide (PRINZIDE) 20-12.5 MG per tablet Take 1 tablet by mouth 1 (one) time each day 12/03/2020 Active metoprolol succinate XL (TOPROL-XL) 50 MG 24 hr tablet Take 50 mg by mouth 1 (one) time each day 12/12/2020 Active cyclobenzaprine (FLEXERIL) 10 MG tablet TAKE 1 TABLET BY MOUTH TWICE DAILY NEEDED FOR MUSCLE SPASM 05/30/2021 Active omeprazole (PriLOSEC) [address] capsule Take 40 mg by mouth 1 (one) time each day 12/05/2021 Active Active Problems Problem Noted Date Diagnosed Date Acute upper respiratory infection 01/08/2022 Allergic rhinitis 01/08/2022 Anxiety state 01/08/2022 Contact dermatitis due to plants 01/08/2022 Disorder of sacrum 01/08/2022 Esophageal reflux finding 01/08/2022 General examination of patient 01/08/2022 Hematuria 01/08/2022 Malaise and fatigue 01/08/2022 Osteoporosis 01/08/2022 Postmenopausal state 01/08/2022 Respiratory disease screening 01/08/2022 Urinary tract infectious disease 01/08/2022 Vitamin D deficiency 01/08/2022 Pain in lower limb 03/01/2019 Palpitations 04/11/2018 Closed fracture of phalanx of index finger 02/20 Chest pain 06/19/2014 Essential hypertension 06/19/2014 Gastroesophageal reflux disease 06/19/2014 Supraventricular tachycardia 06/19/2014 Polyp of gallbladder 08/29/2011 Immunizations Name Administration Dates Next Due Influenza, Unspecified 12/30/2012 Sars-cov-2, Unspecified 01/09/2021,07/10/2020, Tdap 08/31/2014 Zoster 03/30/2012 Family History Medical History Relation Comments Prostate cancer Brother Kidney disease Neg Hx Nephrolithiasis Neg Hx Relation Status Comments Brother Social History Tobacco Use Types Packs/Day Years Used Date Smoking Tobacco: Former Cigarettes Q uit: 03/30/1997 Smokeless Tobacco: Never Comments:smoked > 1 pack/day x 10 years Alcohol Use Standard Drinks/Week Comments Yes 0 (1 standard drink = 0.6 oz pur e alcohol) Sex and Gender Information Value Date Recorded Sex Assigned at Not on file Gender Identity Not on file Sexual Orientation Not on file Last Filed Vital Signs Vital Sign Reading Time Taken Comments Blood Pressure 130/74 01/08/2022 8:50 AM CDT Pulse - - Temperature 35.9 C (96.7 F) 01/08/2022 8:50 AM CDT Respiratory Rate 18 01/08/2022 8:50 AM CDT Oxygen Saturation - - Inhaled Oxygen Concentration - - Weight 73 kg (161 lb) 01/08/2022 8:50 AM CDT Height 160 cm (5' 3 ) 01/08/2022 8:50 AM CDT Body Mass Index 28.52 01/08/2022 8:50 AM CDT Plan of Treatment Health Maintenance Due Date Last Done Comments Pneumococcal PPSV23/PCV13 65 + Years / High and Highest Risk (1 of 4 - PCV) 12/22/1951 Influenza Vaccine (#1) 2023 12/30/2012 Care Teams Kids Activities Coach Relationship Specialty Start Date End Date Surya Carlson DO [address] [place] [id number] PCP - General Internal Medicine 06/04/20
== END 2024-06-02 11:45 | disposition home or self-care (01) ==
PROVIDERS: PCP Internal Medicine; Visit Provider Nurse Practitioner
DX: R05.1 Acute cough (principal)
CPT/HCPCS: 71046

== ENCOUNTER 2024-06-17 07:39 | Outpatient (CLI) | payer MEDICARE, SELFPAY ==
--- NOTE | ~2024-06-17 | MM_ITS ---
EXAMINATION: MM screening raegan BI w nadir HISTORY: Screening TECHNIQUE: Craniocaudal and mediolateral oblique 3-D tomosynthesis images were obtained and synthetic 2-D images were generated. CAD analysis was submitted and interpreted. COMPARISON: Comparison to multiple prior studies sequentially, with oldest reviewed study dated 09/07. BREAST PARENCHYMAL COMPOSITION: Not dense: There are scattered areas of fibroglandular density. FINDINGS: There is no evidence of suspicious mass, calcification, or architectural distortion to sugg est malignancy in either breast. There has been no suspicious interval change. IMPRESSION: 1. No mammographic evidence of malignancy. 2. Recommend routine screening mammography in one year. BI-RADS Category 1: Negative Reviewed, dictated and finalized at location B.
--- OUTSIDE RECORDS SUMMARY | 2024-06-17 07:45 | XMS_ITS | Clinical Summary ---
Author Organization [facility] Address [address] [place] [phone] Phone Care Team Providers Care Wood Die Maker Name Role Phone MacrinaSurya shepherd Primary Care Provider [phone] Allergies Active Allergy Reactions Criticality Noted Date [...] Influenza Vaccine (#1) 2023 12/30/2012 Care Teams Wood Die Maker Relationship Specialty Start Date End Date Surya Carlson DO [address] [place] [id number] PCP - General Internal Medicine 06/04/20
--- OUTSIDE RECORDS SUMMARY | 2024-06-17 07:46 | XMS_ITS | Clinical Summary ---
Author Organization [facility] Address [address] [place] [address] Care Team Providers Care Air Brake Operator Name Role Phone Andres Farrar MD Unavailable Surya Carlson DO Primary Care Provider [phone] Source Comments [facility],non-[facility] Affiliates and Associated Physician Practices is amultiple site organization consisting of ambulatory clinics and hospital sitesin [place], [place], [place] and [place]. This disclosure is being madepursuant to the Care Everywhere program and may not contain all information available regarding this patient. Last updated 17.[facility] Allergies Active Allergy Reactions Criticality Noted Date [...] Comments Blood Pressure 142/80 03/25/2012 11:05 AM FLIGHT INSPECTOR Pulse 50 03/25/2012 11:05 AM FLIGHT INSPECTOR Temperature 36.5 C (97.7 F) 08/30/2011 12:39 PM CDT Respiratory Rate 16 08/30/2011 12:39 PM CDT Oxygen Saturation 98% 03/25/2012 11:05 AM FLIGHT INSPECTOR Inhaled Oxygen Concentration - - Weight 61.2 kg (135 lb) 02/20/2015 9:40 AM FLIGHT INSPECTOR Height 160 cm (5' 3 ) 02/20/2015 9:40 AM FLIGHT INSPECTOR Body Mass Index 23.91 02/20/2015 9:40 AM FLIGHT INSPECTOR Plan of Treatment Health Maintenance Due Date Last Done Comments BONE DENSITY TESTING 1945 HEPATITIS C SCREENING 12/17/1963 DTAP/TDAP/TD VACCINES (1 - Tdap) 1964 PNEUMOCOCCAL VACCINE 50+ (1 of 1 - PCV) 12/22/1995 ZOSTER VACCINE (1 of 2) 12/22/1995 Respiratory Syncytial Virus (RSV) Vaccine Pt: or over 60 yrs (1 - 1-dose 75+ series) 2020 COVID-19 VACCINE (1 - 2023-2 5 season) 2023 INFLUENZA VACCINE [...] to complete this topic MENINGOCOCCAL (Group B) VACC INE SHARED DECISION-MAKING Aged Out No longer eligibl e based on patient's age to complete this topic MENINGOCOCCAL GROUPS A/C/Y/W VACCINE Aged Out No longer eligible b ased on patient's age to complete this topic Advance Directives * FULL RESUSCITATION (Latest Code Status on File) Date Activated Date Inactivated Comments 08/29/2011 1:51 PM 08/31/2011 2:15 AM Care Teams Air Brake Operator Relationship Specialty Start Date End Date Surya Carlson DO PCP - General 10/01/21 Andres Farrar MD Orthopedic Surgery 02/20/15
--- OUTSIDE RECORDS SUMMARY | 2024-06-17 07:46 | XMS_ITS | CONTINUITY OF CARE DOCUMENT ---
Author Name viki drew Address Unknown Organization [facility] Address [address] [place] [address] Phone [phone] Care Team Providers Care Armor Reconnaissance Vehicle Crewman Name Role Phone Andre COOPER, Vishal Unavailable [phone] BE LOVE DO Unavailable [phone] BE LOVE DO Unavailable [phone] PROBLEMS Condition Status Date Provider Notes SVT active Vishal Powell MD GERD active Vishal Powell MD HTN essential active Vishal Powell MD Palpitations active Vishal Powell MD Leg pain, bilateral active Vishal Powell MD PVCs active Antony Collazo Dizziness active Antony Collazo Cardiology examination active Antony Collazo Former smoker active Antony Collazo Chest pain- abnl sress test ,inf wall ischemia, ncath , nl cors, Nl lv 4/15 active Vishal thomas MD ENCOUNTERS Date Type Provider Location Encounter Diag nosis - In-person encounter Office Visit Vishal Powell MD [facility] Cardiology examination - In-person encounter Office Visit Vishal Powell MD [facility] - In-person encounter Office Visit Vishal Powell MD [facility] Former smokerPVCsDizziness - In-person encounter Office Visit Vishal Powell MD [facility] - In-person encounter Office Visit Vishal Powell MD [facility] - In-person encounter Office Visit Vishal Powell MD [facility] - In-person encounter Office Visit Vishal Powell MD [facility] - In-person encounter Office Visit Vishal Powell MD [facility] - In-person encounter Office Visit Vishal Powell MD [facility] - In-person encounter Office Visit Vishal Powell MD [facility] Leg pain, bilateral - In-person encounter Office Visit Vishal Powell MD [facility] Palpitations - In-person encounter Office Visit Vishal Powell MD [facility] - In-person encounter Office Visit Vishal Powell MD [facility] - In-person encounter Office Visit Vishal Powell MD [facility] - In-person encounter Office Visit Vishal Powell MD [facility] Chest pain- abnl sress test ,inf wall ischemia, ncath , nl cors, Nl lv 07/12 - In-person encounter Office Visit Vishal Powell MD [facility] Chest pain- abnl sress test ,inf wall ischemia, ncath , nl cors, Nl lv 07/12 - In-person encounter Office Visit Vishal Powell MD [facility] SVTGERDChest pain- abnl sress test ,inf wall ischemia, ncath , nl cors, Nl lv 07/12HTN essential VITAL SIGNS Date Observation Value Provider Body Mass Index (Ratio) 29.51 kg/m2 Scott Powell MD blood pressure, diastolic 71 mm[Hg] Harjinder rendon Chaney blood pressure, systolic 133 mm[Hg] Ivory sheldon Chaney oxygen saturation, oximetry 97 % [facility] pulse rate 68 /min [facility] blood pressure, cuff size regular Harjinder rendon Chaney weight E&M 166.6 [lb_av] Radha Chaney height E&M 63 [in_i] [facility] Body Mass Index (Ratio) 29.47 kg/m2 Scott Powell MD blood pressure, diastolic 70 mm[Hg] Ta bitha [place] blood pressure, systolic 126 mm[Hg] Tab jila [place] oxygen saturation, oximetry 96 % Dawan [place] respiratory rate E&M 12 /min Dawna [place] pulse rate 65 /min Dawna [place] weight E&M 166.4 [lb_av] Dawna Diego height E&M 63 [in_i] Dawna [place] Body Mass Index (Ratio) 29.23 kg/m2 Scott Powell MD blood pressure, diastolic 77 mm[Hg] Li nkLog blood pressure, systolic 148 mm[Hg] Donna kLog blood pressure, cuff size regular [facility] blood pressure, diastolic 77 mm[Hg] [facility] blood pressure, systolic 148 mm[Hg] [facility], oximetry 98 % Ana [place] respiratory rate E&M 16 /min Ana M iller pulse rate 63 /min Ana [place] weight E&M 165 [lb_av] Ana Diego height E&M 63 [in_i] Ana [place] Body Mass Index (Ratio) 28.94 kg/m2 Scott Powell MD blood pressure, diastolic 87 mm[Hg] [facility] ac[facility] blood pressure, systolic 153 mm[Hg] Sta cy Joe oxygen saturation, oximetry 100 % Kennedi Joe pulse rate 53 /min Kennedi Joe respiratory rate E&M 18 /min Kennedi D bryn weight E&M 163.4 [lb_av] Kennedi Joe height E&M 63 [in_i] [facility] Body Mass Index (Ratio) 28.16 kg/m2 Scott Powell MD blood pressure, diastolic 87 mm[Hg] [facility] blood pressure, systolic 128 mm[Hg] [facility] oxygen saturation, oximetry 96 % [facility] respiratory rate E&M 16 /min Kennedi D bryn pulse rate 65 /min [facility] weight E&M 159 [lb_av] [facility] height E&M 63 [in_i] [facility] Body Mass Index (Ratio) 28.16 kg/m2 Scott [...] Tom Collazoby weight E&M 153 [lb_av] Shivani Cecilia blood pressure, diastolic 70 mm[Hg] Tom samaniego [place] blood pressure, systolic 130 mm[Hg] Odalis Collazoby [...] riveraer oxygen saturation, oximetry 98 % Shivani [place] blood pressure, diastolic 57 mm[Hg] Tom isty Cecilia blood pressure, systolic 92 mm[Hg] oTmi starjun Cecilia pulse rate 61 /min Shivani Cecilia respiratory rate E&M 18 /min Shivani Cecilia Body Mass Index (Ratio) 26.07 kg/m2 Dequan [place] weight E&M 147.2 [lb_av] Shivani Cecilia blood [...] kelli Vaughn pulse rate 61 /min Aneatris Rdoerick oxygen saturation, oximetry 96 % Aneatrkassandra Vaughn respiratory rate E&M 17 /min Aneatri s Roderick weight E&M 138 [lb_av] Aneatris Roderick Body Mass Index (Ratio) 24.62 kg/m2 Garry Vaughn blood pressure, diastolic 82 mm[Hg] An azul Vaughn blood pressure, systolic 156 mm[Hg] Ane kelli Vaughn pulse rate 60 /min Aneatris Roderick oxygen saturation, oximetry 99 % lEmaatrkassandra Vaughn respiratory rate E&M 18 /min Aneatri s Roderick weight E&M 139 [lb_av] Aneatris Roderick height E&M 63 [in_i] [facility] Vaughn ALLERGIES Allergy Name Onset Date [...] High 0 platelet count 307 X10E3/UL [employer] [id number] 4824/01/2 0 red blood cell distribution width 13.7 [...] 3.5-5.2 0 sodium, serum 143 mmol/L [employer] 186-169 6375/01/2 0 urea nitrogen/creatinine ratio, serum 14 [employer] [...] by mouth once a day 12/10 Chuyita Leblnac lisinopril-hydrochl orothiazide 20-12.5 mg tablet active TAKE 1 TABLET BY MOUTH EVERY DAY 06/17 calcitriol 0.25 mcg capsule active Antony Joshmedzai lisinopril-hydrochl orothiazide 20-12.5 mg tablet completed Take 1 tablet by mouth once a day TAKE 1 TABLET BY MOUTH DAILY 06/13 - 06/17 [facility] metoprolol succinate 50 mg tablet extended release [...] use, average drinks per day social Antony [facility] alcohol use yes [facility], year quit 1990 Antony nunn number [...] E&M revi ewed - no changes required nAtony Collazo social history reviewed E&M revi ewed [...] yes Kennedi Diaz smoking status Former smoker Kennedi Joe social history E&M S moking History: [...] week Daiana Palafox cigarette use yes Daiana berg smoking status Former smoker Daiana pardo alcohol [...] a Chuyita Nashtal smoking, date started 1965 Chuyitaimmi Panger smoking history, tot al pack/day 1 [...] alcohol use, average drinks per day social Chuyiat Leblanc alcohol use yes Chuyita Clemens nicoleer [...] Payer name Policy type / Coverage type [place] red libertarian ID [id number] ADVANCE DIRECTIVES Name Date DISCUSSED - NO DECISION MADE TREATMENT PLAN Date Name Performer [id number],S, Antony Ahmedza i [id number],B, Antony Ahmedza i [id number],S, Antony Ahmedza i [id number],S, Antony Ahmedza i [id number],S, Antony Joshmedza i [id number],B, Vishal Powell MD [id number],B, Vishal Powell MD [id number],B, Vishal Powell MD [id number],B, Vishal Powell MD [id number],B, Antony Morenomedza i [id number],S, Antony Joshmedza i [id number],S, Antony Joshmedza i [id number],S, Antony Joshmedza i [id number],B, Antony Ahmedza i [id number],S, Antony Joshmedza i [id number],S, Antony Ahmedza i [id number],S, Antony Ahmedza i [id number],S, Antony Ahmedza i [id number],B, Armen May [id number],B, Armen May [id number],B, Armen May [id number],W, Armen May Cardiology: H er updated medication list for this problem includes: Metoprolol Succinate 50 Mg Tablet Extended Release 24 Hr (Metoprolol succinate) ..... Take 1 tablet by mouth once a day Lisinopril-hydrochlorothiazide 20-12.5 Mg Tablet (Lisinopril-hydrochlorothiazide) ..... Take 1 tablet by mouth every day [facility] Cardiology: H er updated medication list for this problem includes: Metoprolol Succinate 50 Mg Tablet Extended Release 24 Hr (Metoprolol succinate) ..... Take 1 tablet by mouth once a day Lisinopril-hydrochlorothiazide 20-12.5 Mg Tablet (Lisinopril-hydrochlorothiazide) ..... Take 1 tablet by mouth every day [facility] Cardiology: H er updated medication list for this problem includes: Metoprolol Succinate 50 Mg Tablet Extended Release 24 Hr (Metoprolol succinate) ..... Take 1 tablet by mouth once a day Lisinopril-hydrochlorothiazide 20-12.5 Mg Tablet (Lisinopril-hydrochlorothiazide) ..... Take 1 tablet by mouth every day [facility] Cardiology [facility] Cardiology: H er updated medication list for this problem includes: Metoprolol Succinate 50 Mg Tablet Extended Release 24 Hr (Metoprolol succinate) ..... Take 1 tablet by mouth once a day Lisinopril-hydrochlorothiazide 20-12.5 Mg Tablet (Lisinopril-hydrochlorothiazide) ..... Take 1 tablet by mouth every day [facility] Cardiology [facility] Cardiology: H er updated medication list for this problem includes: Lisinopril-hydrochlorothiazide 20-12.5 Mg Tablet (Lisinopril-hydrochlorothiazide) ..... Take 1 tablet by mouth every day Metoprolol Succinate 50 Mg Tablet Extended Release 24 Hr (Metoprolol succinate) ..... Take 1 tablet by mouth daily [facility] Cardiology: H er updated medication list for [...] ..... Take 1 tablet by mouth daily [facility] Cardiology Antony Ahmedzai Cardiology Antony [...] completed EKG Vishal Powell MD completed SNOMED-CT: 805471065 [id number] Current Medications Documented Vishal Powell MD completed SNOMED-CT: 57996224 Physical Exam, Performed: Pulse Exam of Foot Vishal Powell MD completed SNOMED-CT: 609207951 209201 Current Medications Documented Vishal Powell MD completed SNOMED-CT: 59740377 Physical Exam, Performed: Pulse Exam of Foot Vishal Powell MD completed EKG Vishal Powell MD completed SNOMED-CT: 609698681 098579 Current Medications Documented Vishal Powell MD completed EKG Vishal Powell MD completed
--- OUTSIDE RECORDS SUMMARY | 2024-06-17 07:46 | XMS_ITS | Encounter Summary ---
Author Organization [facility] Address [address] [place] [address] Care Team Providers Care Slasher Name Role Phone Andres Farrar MD Unavailable [phone] Surya Carlson DO Primary Care Provider [phone] Encounter Details Date Type Department Care Team (Late st Contact Info) Description 09/08/2011 [facility] Outpatient Visit [facility] - Surgery [address] [place] [address] Marty Ortega DO [address] [facility] [address] [place] [address] Social History Tobacco Use Types Packs/Day Years [...] on filedocumented in this encounter Care Teams Slasher Relationship Specialty Start Date End Date Surya Carlson DO PCP - General 10/01/21 Andres Farrar MD Orthopedic Surgery 02/20/15 documented as of this encounter
--- OUTSIDE RECORDS SUMMARY | 2024-06-17 07:46 | XMS_ITS | Clinical Summary ---
Author Organization [facility] Address [address] [place] [id number] Care Team Providers Care Aerobics Instructor Name Role Phone Unavailable Primary Care Provider [...]
--- OUTSIDE RECORDS SUMMARY | 2024-06-17 07:46 | XMS_ITS | Patient Health Record ---
Author Organization [facility] Address [address] [place] [address] Care Team Providers Care Taping Machine Operator Name Role Phone Homero Corrigan Unavailable [phone] Reason For Referral No Information Medications Medication SIG (Take, Route, Frequency, Duration) Notes Start Date End Date Status Anahy take 1 tablet 180MG ORAL 10/08/2011 Active Mobic 15mg take 1 tablet by ora ORAL 05/08/2014 Active Xanax 0.5mg take 1 2 Tablet 05M ORAL 10/08/2011 Active hydroCHLOROthiazide 25mg TAKE 1 TABLET B Y ORA ORAL 01/17/2015 Active Calcium 500 mg(1,250mg)-200 unit take 1 by Oral route ORAL 10/08/2011 Active Veramyst 27.5mcg/actuation spray 2 spray by int NASAL 02/15/2013 Active Lisinopril 20mg take 1 tablet by ora ORAL 02/20/2015 Active Aspirin 81mg take 1 tablet by ora ORAL 07/28/2014 Active Metoprolol Succinate ER 25mg take 1 tabl et by ora ORAL 07/28/2014 Active Estrace 0.01% (0.1 mg/gram) insert 1G by vagina VAGINAL 08/15/2009 Active Immunizations Vaccine Route Administration Date Status Comme nts Zoster (Zostavax) Unknown 03/30/2012 Administered zzInfluenza, High dose, injectable, preservative free (Fluzone) Unknown 12/05/2013 Administered Tdap (Boostrix, Adacel) Unknown 08/31/2014 Administered Influenza (split), 3 yrs and above IM Intramuscular 12/30/2012 Administered Problems Problem Type SNOMED Code ICD Code Onset Dates Problem Status W/U Status Risk Notes Problem Vitamin D deficiency (82924250) Unspecified vitamin D deficiency (268.9) 0 confirmed James Problem Anxiety state (164945237) Anxiety state, unspecified (300.00) 0 confirmed James Problem Allergic rhinitis (60977928) Allergic rhinitis, cause unspecified (477.9) 0 confirmed James Problem Essential hypertension (97704727) Unspecified essential hypertension (401.9) 0 confirmed James Problem Paroxysmal supraventricular tachycardia (91456813) Paroxysmal supraventricular tachycardia (427.0) 0 confirmed James Problem Acute upper respiratory infection (81228463) Acute upper respiratory infections of unspecified site (465.9) 0 confirmed James Problem Esophageal reflux (864872918) Esophageal reflux (530.81) 0 confirmed James Problem Urinary tract infectious disease (63144477) Urinary tract infection, site not specified (599.0) 0 confirmed James Problem Hematuria (68627114) Hematuria, unspecified (599.70) 0 confirmed James Problem Disorder of sacrum (57756861) Disorders of sacrum (724.6) 0 confirmed James Problem Contact dermatitis due to plants, except food (57224319) Contact dermatitis and other eczema due to plants (except food) (692.6) 0 confirmed James Problem Osteoporosis (13732076) Unspecified osteoporosis (733.00) 0 confirmed James Problem Malaise and fatigue (526003521) Other malaise and fatigue (780.79) 0 confirmed James Problem Abdominal pain (91302616) Abdominal pain, unspecified site (789.00) 0 confirmed James Problem Postmenopausal state (13394138) Asymptomatic postmenopausal status (age-related) (natural) (V49.81) 0 confirmed James Problem Needs influenza immunization (707395249) Need for prophylactic vaccination and inoculation, Influenza (V04.81) 0 confirmed James Problem General examination of patient (370732189) Routine general medical examination at health care facility (V70.0) 0 confirmed James Problem Respiratory disease screening (983200076) Screening for other and unspecified respiratory condition (V81.4) 0 confirmed James Problem Essential hypertension (30513325) Essential (primary) hypertension (I10) 0 confirmed James Plan Of Treatment No Information
== END 2024-06-17 07:40 | disposition home or self-care (01) ==
LOC: ANHIMG 07:42
PROVIDERS: PCP Internal Medicine; Visit Provider Internal Medicine
DX: Z12.31 Encounter for screening mammogram for malignant neoplasm of breast (principal)
CPT/HCPCS: 77063; 77067

== ENCOUNTER 2024-08-02 11:15 | Outpatient (CLI) | payer MEDICARE, SELFPAY ==
--- OUTSIDE RECORDS SUMMARY | 2024-08-02 12:04 | XMS_ITS | Clinical Summary ---
Author Organization [facility] Address [address] [place] [address] Phone Care Team Providers Care Stock Sorter Name Role Phone SandrinekelSurya shepherd DO Primary Care Provider Allergies Active Allergy Reactions Criticality Noted Date Comments Penicillins Rash Low 06/12/2020 Sulfa Antibiotics Rash Low 12/18/2010 Medications amLODIPine (NORVASC) 5 MG tablet Take 5 mg by mouth 1 (one) time each day 05/31/2020 Active atorvastatin (LIPITOR) 10 MG tablet Take 10 mg by mouth every night 04/30/2020 Active omeprazole (PriLOSEC) [address] capsule Take 20 mg by mouth 1 (one) time each day 05/09/2020 Active lisinopril-hydro CHLOROthiazide (PRINZIDE) 20-12.5 MG per tablet Take 1 [...] tachycardia 06/19/2014 Polyp of gallbladder 08/29/2011 Immunizations Immunization Administration Dates Next Due Influenza, Unspecified 12/30/2012 [...] drink = 0.6 oz pur e alcohol) Comments Unknown Sex and Gender Information Value Date Recorded Sex Assigned at Not on file Legal Sex Female 8:46 AM [facility] Gender Identity Not on file Sexual Orientation [...] / High and Highest Risk (1 of 5 - PCV) 1964 Influenza Vaccine (Season Ended) 2024 12/31/19 13 Insurance [facility] MEDICAID Care Teams Stock Sorter Relationship Specialty Start Date End Date Surya Carlson DO [address] [place] [address] PCP - General Internal Medicine 06/04/20
--- OUTSIDE RECORDS SUMMARY | 2024-08-02 12:04 | XMS_ITS | Clinical Summary ---
Author Organization [facility] [employer] Address [address] [facility] [place] [address] Care Team Providers Care Jailer Name Role Phone Andres Farrar MD Unavailable Surya Carlson DO Primary Care Provider [phone] Source Comments [facility] Affiliates and Associated Physician Practices is amultiple site organization consisting of ambulatory clinics and hospital sitesin [place], [place], [place] and [place]. This disclosure is being madepursuant to the Care Everywhere program and may not contain all information available regarding this patient. Last updated 17.[facility] [employer] Allergies Active Allergy Reactions Criticality Noted Date Comments Sulfa Drugs 12/18/2010 Medications * Be aware that medications may not be up to date on this document. Alwaysverify current medications with the patient. losartan-hydroch lorothiazide (HYZAAR) 100-25 MG tablet Take 1 Tab [...] = 0.6 oz p ure alcohol) socially Comments Unknown Sex and Gender Information Value Date Recorded Sex Assigned at Not on file Legal Sex Female 6:25 AM SENIOR CONTROLLER Gender Identity Not on file Sexual Orientation Not on file Last Filed Vital Signs Vital Sign Reading Time Taken Comments Blood Pressure 142/80 03/25/2012 11:05 AM SENIOR CONTROLLER Pulse 50 03/25/2012 11:05 AM SENIOR CONTROLLER Temperature 36.5 C (97.7 F) 08/30/2011 12:39 PM CDT Respiratory Rate 16 08/30/2011 12:39 PM CDT Oxygen Saturation 98% 03/25/2012 11:05 AM SENIOR CONTROLLER Inhaled Oxygen Concentration - - Weight 61.2 kg (135 lb) 02/20/2015 9:40 AM SENIOR CONTROLLER Height 160 cm (5' 3 ) 02/20/2015 9:40 AM SENIOR CONTROLLER Body Mass Index 23.91 02/20/2015 9:40 AM SENIOR CONTROLLER Plan of Treatment Health Maintenance Due Date Last Done Comments BONE DENSITY TESTING 1945 HEPATITIS C SCREENING 12/17/1963 DTAP/TDAP/TD VACCINES (1 - Tdap) 1964 PNEUMOCOCCAL VACCINE 50+ (1 of 1 - PCV) 12/22/1995 ZOSTER VACCINE (1 of 2) 12/22/1995 Respiratory Syncytial Virus (RSV) Vaccine Pt: or over 60 yrs (1 - 1-dose 75+ series) 2020 COVID-19 VACCINE ( - 2023-2 5 season) 2023 DEPRESSION SCREENING 03/30/2024 INFLUENZA VACCINE (Season Ended) 2024 12/31/19 13 HEPATITIS B VACCINE Aged Out No longe [...] on patient's age to complete this topic Insurance [employer] MANAGED CARE MEDICARE ADV SELF PAY NO INSURANCE Member Subscriber Plan / Payer (Ef fective for All Dates) Name:Kwaku Ella Member ID:Not on file Relation to Subscriber:Not on file Name:HUMPHREY BURLESON Subscriber ID:Not on file Address: [address] [place] [address] Payer ID:Not on file Group ID:Not on file Type:Self Pay Address: [place], [place] Advance Directives * FULL RESUSCITATION (Latest Code Status on File) Date Activated Date Inactivated Comments 08/29/2011 1:51 PM 08/31/2011 2:15 AM Care Teams Jailer Relationship Specialty Start Date End Date Surya Carlson DO PCP - General 10/01/21 Andres Farrar MD Orthopedic Surgery 02/20/15
--- OUTSIDE RECORDS SUMMARY | 2024-08-02 12:04 | XMS_ITS | Clinical Summary ---
Author Organization [facility] Address [address] [place] [address] Care Team Providers Care Energy Sales Consultant Name Role Phone Unavailable Primary Care Provider [...]
--- OUTSIDE RECORDS SUMMARY | 2024-08-02 12:04 | XMS_ITS | Encounter Summary ---
Author Organization [facility] Address [address] [place] [address] Care Team Providers Care Advertising Sales Consultant Name Role Phone Andres Farrar MD Unavailable [phone] Surya Carlson DO Primary Care Provider [phone] Encounter Details Date Type Department Care Team (Late st Contact Info) Description 09/08/2011 [facility] Outpatient Visit [facility] Medical [facility] - Surgery [address] [place] [address] Marty Ortega DO [address] [facility] [address] [place] [address] Social History Tobacco Use Types Packs/Day Years Used Date Smoking Tobacco: Former Cigarettes Q uit: 03/30/1996 Alcohol Use Standard Drinks/Week Comments Yes 0.8 (1 standard drink = 0.6 oz p ure alcohol) socially Comments Unknown Sex and Gender Information Value Date Recorded Sex Assigned at Not on file Legal Sex Female 6:25 AM [employer]GER [employer] Gender Identity Not on file Sexual Orientation Not on file documented as of this encounter Plan of Treatment Not on file documented as of this encounter Visit Diagnoses Not on filedocumented in this encounter Care Teams Advertising Sales Consultant Relationship Specialty Start Date End Date Surya Carlson DO PCP - General 10/01/21 Anrdes Farrar MD Orthopedic Surgery 02/20/15 documented as of this encounter
--- OUTSIDE RECORDS SUMMARY | 2024-08-02 12:04 | XMS_ITS | CONTINUITY OF CARE DOCUMENT ---
Author Name viki drew Address Unknown Organization [facility] Address [address] [facility] [address] [place] [address] Phone [phone] Care Team Providers Care Bag Making Machine Operator Name Role Phone Vishal Powell MD Unavailable [phone] BE LOVE DO Unavailable BE LOVE DO [...] In-person encounter Office Visit Vishal Powell MD [facility] Cardiology examination - In-person encounter Office Visit Vishal Powell MD [facility] - In-person encounter Office Visit Vishal Powell MD [facility] Former smokerPVCsDizziness - In-person encounter Office Visit Vishal Powell MD [facility] - In-person encounter Office Visit Vishal Powell MD [facility] - In-person encounter Office Visit Vishal Powell MD [facility] - In-person encounter Office Visit Vishal Powell MD [facility] - In-person encounter Office Visit Vishal Powell MD [facility] - In-person encounter Office Visit Vishal Powell MD [facility] - In-person encounter Office Visit Vishal Powell MD [facility] Leg pain, bilateral - In-person encounter Office Visit Vishal Powell MD [facility] Palpitations - In-person encounter Office Visit Vishal Powell MD [facility] - In-person encounter Office Visit Vishal Powell MD [facility] - In-person encounter Office Visit Vishal Powell MD [facility] - In-person encounter Office Visit Vishal Powell MD [facility] Chest pain- abnl sress test ,inf wall ischemia, ncath , nl cors, Nl lv 07/12 - In-person encounter Office Visit Vishal Powell MD [facility] Chest pain- abnl sress test ,inf wall ischemia, ncath , nl cors, Nl lv 07/12 - In-person encounter Office Visit Vishal Powell MD [facility] SVTGERDChest pain- abnl sress test ,inf wall ischemia, ncath , nl cors, Nl lv 07/12HTN essential VITAL SIGNS Date Observation Value Provider Body Mass Index (Ratio) 29.51 kg/m2 Scott Powell MD blood pressure, diastolic 71 mm[Hg] Harjinder rendon Chaney blood pressure, systolic 133 mm[Hg] Ivory hseldon Chaney oxygen saturation, oximetry 97 % [facility] pulse rate 68 /min [facility] blood pressure, cuff size regular Harjinder rendon Chaney weight E&M 166.6 [lb_av] Radha Chaney height E&M 63 [in_i] [facility] Chaney Body Mass Index (Ratio) 29.47 kg/m2 Scott Powell MD blood pressure, diastolic 70 mm[Hg] Ta bitha Bisbee blood pressure, systolic 126 mm[Hg] Tab jila Bisbee oxygen saturation, oximetry 96 % Dawna Bisbee respiratory rate E&M 12 /min Dawna Bisbee pulse rate 65 /min Dawna Bisbee weight E&M 166.4 [lb_av] Dawna Diego height E&M 63 [in_i] Dawna Bisbee Body Mass Index (Ratio) 29.23 kg/m2 Scott Powell MD blood pressure, diastolic 77 mm[Hg] Li nkLog blood pressure, systolic 148 mm[Hg] Donna kLog blood pressure, cuff size regular [facility] blood pressure, diastolic 77 mm[Hg] [facility] blood pressure, systolic 148 mm[Hg] [facility] saturation, oximetry 98 % Ana Bisbee respiratory rate E&M 16 /min Ana M iller pulse rate 63 /min Ana Bisbee weight E&M 165 [lb_av] Ana Diego height E&M 63 [in_i] Ana Bisbee Body Mass Index (Ratio) 28.94 kg/m2 Scott Powell MD blood pressure, diastolic 87 mm[Hg] [facility] blood pressure, systolic 153 mm[Hg] [facility] oxygen saturation, oximetry 100 % Kennedi Joe pulse rate 53 /min Kennedi Joe respiratory rate E&M 18 /min Kennedi D bryn weight E&M 163.4 [lb_av] Kennedi Joe height E&M 63 [in_i] [facility] Body Mass Index (Ratio) 28.16 kg/m2 Scott Powell MD blood pressure, diastolic 87 mm[Hg] [facility] blood pressure, systolic 128 mm[Hg] [facility] oxygen saturation, oximetry 96 % [facility] respiratory rate E&M 16 /min Kennedi D bryn pulse rate 65 /min [facility] weight E&M 159 [lb_av] [facility] height E&M 63 [in_i] [facility] Body Mass Index (Ratio) 28.16 [...] Tom Collazoby weight E&M 153 [lb_av] Shiv[facility] [place] blood pressure, diastolic 70 mm[Hg] Tom samaniego [...] riveraer oxygen saturation, oximetry 98 % Shivani Cecilia blood pressure, diastolic 57 mm[Hg] Tom isty [place] blood pressure, systolic 92 mm[Hg] Tomi starjun Cecilia pulse rate 61 /min Shiv[facility] [place] respiratory rate E&M 18 /min Shivani Cecilia Body Mass Index (Ratio) 26.07 kg/m2 Dequan Cecilia weight E&M 147.2 [lb_av] Shivani Cecilia blood [...] [lb_av] Aneatris Roderick height E&M 63 [in_i] [facility] Vaughn ALLERGIES Allergy Name Onset Date [...] High 0 platelet count 307 X10E3/UL [employer] [phone]/01/2 0 red blood cell distribution width 13.7 [...] 3.5-5.2 0 sodium, serum 143 mmol/L [employer] 114-793 4005/01/2 0 urea nitrogen/creatinine ratio, serum 14 [employer] 12- 0 eGFR if not 43 mL/min/{1 .73_m2} [employer] >59 Low 0 creatinine, serum 1.26 mg/dL [facility] 0.57-1.00 High 0 urea nitrogen, blood 18 mg/dL [facility] 8- 0 blood glucose, random 107 mg/dL [employer] 65-99 High HISTORY OF MEDICATION USE Medication Status Instructions Dates Provider Indications Com ments colestipol 1 gram tablet active Antony Collazo metoprolol succinate 50 mg tablet extended release 24 hr active Take 1 tablet by mouth once a day 12/10 Chuyita Leblanc lisinopril-hydrochl orothiazide 20-12.5 mg tablet active TAKE 1 TABLET BY MOUTH EVERY DAY 06/17 Vishal Powell MD calcitriol 0.25 mcg capsule active Antony Collazo lisinopril-hydrochl orothiazide 20-12.5 mg tablet completed Take 1 tablet by mouth once a day TAKE 1 TABLET BY MOUTH DAILY 06/13 - 06/17 Get Anderson metoprolol succinate 50 mg tablet extended release [...] use, average drinks per day social Antony [facility] alcohol use yes [facility] smoking, year quit 1990 Antony nunn number [...] social history E&M S moking History: Deanna mratínez is a former smoker. Vishal Powell MD [...] years as a smoker 10 a Shivani [place] smoking, date started 1964 Shivani [place] smoking history, tot al pack/day 1 pack [...] Payer name Policy type / Coverage type [place] red libertarian ID SeeMe [id number] ADVANCE DIRECTIVES Name Date DISCUSSED - NO DECISION MADE TREATMENT PLAN Date Name Performer [id number],S, Antony Ahmedza i [id number],B, Antony Ahmedza i [id number],S, Antony Ahmedza i [id number],S, Antony Ahmedza i [id number],S, Antony Joshmedza i [id number],B, Vishal Powell MD [id number],B, Vishal Powell MD [id number],B, Vishal Powell MD [id number],B, Vishal Powell MD [id number],B, Antony Morenomedza i [id number],S, Antony Joshmedza i [id number],S, Antony Joshmedza i [id number],S, Antony Joshmedza i [id number],B, Antony Ahmedza i [id number],S, Antony Joshmedza i [id number],S, Antony Ahmedza i [id number],S, Antony Ahmedza i [id number],S, Antony Ahmedza i [id number],B, Armen May [id number],B, Armen May [id number],B, Armen May [id number],W, Aremn May Cardiology: H er updated medication list for this problem includes: Metoprolol Succinate 50 Mg Tablet Extended Release 24 Hr (Metoprolol succinate) ..... Take 1 tablet by mouth once a day Lisinopril-hydrochlorothiazide 20-12.5 Mg Tablet (Lisinopril-hydrochlorothiazide) ..... Take 1 tablet by mouth every day [facility] Cardiology: H er updated medication list for this problem includes: Metoprolol Succinate 50 Mg Tablet Extended Release 24 Hr (Metoprolol succinate) ..... Take 1 tablet by mouth once a day Lisinopril-hydrochlorothiazide 20-12.5 Mg Tablet (Lisinopril-hydrochlorothiazide) ..... Take 1 tablet by mouth every day [facility] Cardiology: H er updated medication list for this problem includes: Metoprolol Succinate 50 Mg Tablet Extended Release 24 Hr (Metoprolol succinate) ..... Take 1 tablet by mouth once a day Lisinopril-hydrochlorothiazide 20-12.5 Mg Tablet (Lisinopril-hydrochlorothiazide) ..... Take 1 tablet by mouth every day [facility] Cardiology: H er updated medication list for this problem includes: Metoprolol Succinate 50 Mg Tablet Extended Release 24 Hr (Metoprolol succinate) ..... Take 1 tablet by mouth once a day Lisinopril-hydrochlorothiazide 20-12.5 Mg Tablet (Lisinopril-hydrochlorothiazide) ..... Take 1 tablet by mouth every day [facility]: H er updated medication list for this problem includes: Lisinopril-hydrochlorothiazide 20-12.5 Mg Tablet (Lisinopril-hydrochlorothiazide) ..... Take 1 tablet by mouth every day Metoprolol Succinate 50 Mg Tablet Extended Release 24 Hr (Metoprolol succinate) ..... Take 1 tablet by mouth daily [facility] Cardiology: H er updated medication list for [...] ..... Take 1 tablet by mouth daily [facility] Antony [facility] Cardiology Antony Ahmedzai Cardiology Antony [...] Vishal Powell MD Cardiology Follow up Vishal thomas MD Cardiology: B P today: 158/83 P [...] Vishal andrade MD Cardiology Follow up Vishal andarde MD Cardiology Vishal Powell MD Cardiology Vishal [...] completed EKG Vishal Powell MD completed SNOMED-CT: 130858181 590208 Current Medications Documented Vishal Powell MD completed SNOMED-CT: 29984958 Physical Exam, Performed: Pulse Exam of Foot Vishal Powell MD completed SNOMED-CT: 652193224 707676 Current Medications Documented Vishal Powell MD completed SNOMED-CT: 98629310 Physical Exam, Performed: Pulse Exam of Foot Vishal Powell MD completed EKG Vishal Powell MD completed SNOMED-CT: 050652316 425097 Current Medications Documented Vishal Powell MD completed EKG Vishal Powell MD completed
== END 2024-08-02 11:16 | disposition home or self-care (01) ==
PROVIDERS: PCP Internal Medicine; Visit Provider Clinical Nurse Specialist
DX: M25.561 Pain in right knee (principal)
CPT/HCPCS: 73562

== ENCOUNTER 2024-09-09 10:35 | Outpatient (CLI) | payer MEDICARE, SELFPAY ==
--- NOTE | ~2024-09-09 | MR_ITS ---
MRI of the right knee Clinical history: Pain Technique: Coronal proton density and proton density-weighted images, sagittal proton-density and T2 fat-sat images, and axial proton-density fat-saturated images were acquired. Findings: Anterior and posterior cruciate ligaments are intact. Medial collateral ligament is intact, with extensive soft tissue edema around the MCL. Lateral collateral ligament complex is intact. Popl iteus tendon is intact. Medial and lateral menisci are intact, without evidence of tear. Articular cartilage is well preserved throughout the knee. Bone marrow signals are unremarkable. Extensor mechanism is intact. No significant joint effusion or Aceves's cyst. Impression: Soft tissue edema about the MCL suggests grade 1 sprain. Reviewed, dictated and finalized at [facility]. Impression: Soft tissue edema about the MCL suggests grade 1 sprain.
--- OUTSIDE RECORDS SUMMARY | 2024-09-09 10:39 | XMS_ITS | Clinical Summary ---
Author Organization [facility] Address [address] [place] [address] Care Team Providers Care Msws Name Role Phone Unavailable Primary Care Provider Unavailabl e Social History Tobacco Use Types Packs/Day Years [...]
--- OUTSIDE RECORDS SUMMARY | 2024-09-09 10:39 | XMS_ITS | Patient Health Record ---
Author Organization [facility] Address [address] [place] [address] Care Team Providers Care Animal Husbandry Manager Name Role Phone Homero Corrigan Unavailable [phone] Reason For Referral No Information Medications Medication [...] Status Risk Notes Problem Vitamin D deficiency (88666379) Unspecified vitamin D deficiency (268.9) 0 confirmed James Problem Anxiety state (255700223) Anxiety state, unspecified (300.00) 0 confirmed James Problem Allergic rhinitis (73869762) Allergic rhinitis, cause unspecified (477.9) 0 confirmed James Problem Essential hypertension (75527985) Unspecified essential hypertension (401.9) 0 confirmed James Problem Paroxysmal supraventricular tachycardia (18751194) Paroxysmal supraventricular tachycardia (427.0) 0 confirmed James Problem Acute upper respiratory infection (72283651) Acute upper respiratory infections of unspecified site (465.9) 0 confirmed James Problem Esophageal reflux (622982305) Esophageal reflux (530.81) 0 confirmed James Problem Urinary tract infectious disease (21048038) Urinary tract infection, site not specified (599.0) 0 confirmed James Problem Hematuria (53049830) Hematuria, unspecified (599.70) 0 confirmed James Problem Disorder of sacrum (75545969) Disorders of sacrum (724.6) 0 confirmed James Problem Contact dermatitis due to plants, except food (45202870) Contact dermatitis and other eczema due to plants (except food) (692.6) 0 confirmed James Problem Osteoporosis (75803213) Unspecified osteoporosis (733.00) 0 confirmed James Problem Malaise and fatigue (940041011) Other malaise and fatigue (780.79) 0 confirmed James Problem Abdominal pain (34020008) Abdominal pain, unspecified site (789.00) 0 confirmed James Problem Postmenopausal state (73908354) Asymptomatic postmenopausal status (age-related) (natural) (V49.81) 0 confirmed James Problem Needs influenza immunization (096281922) Need for prophylactic vaccination and inoculation, Influenza (V04.81) 0 confirmed James Problem General examination of patient (681642238) Routine general medical examination at health care facility (V70.0) 0 confirmed James Problem Respiratory disease screening (596786973) Screening for other and unspecified respiratory condition (V81.4) 0 confirmed James Problem Essential hypertension (13102502) Essential (primary) hypertension (I10) 0 confirmed James Plan Of Treatment No Information
--- OUTSIDE RECORDS SUMMARY | 2024-09-09 10:39 | XMS_ITS | Encounter Summary ---
Author Organization [facility] Address [address] [place] [address] Care Team Providers Care Cell Builder Name Role Phone Andres Farrar MD Unavailable [phone] Surya Carlson DO Primary Care Provider [phone] Encounter Details Date Type Department Care Team (Late st Contact Info) Description 09/08/2011 [facility] Outpatient Visit [facility] - Surgery [address] [place] [address] Marty Ortega DO [address] [facility] [address] [place] [address] Social History Tobacco Use Types Packs/Day Years Used Date Smoking Tobacco: Former Cigarettes Q uit: 03/30/1996 Alcohol Use Standard Drinks/Week Comments Yes 0.8 (1 standard drink = 0.6 oz p ure alcohol) socially Comments Unknown Sex and Gender Information Value Date Recorded Sex Assigned at Not on file Legal Sex Female 6:25 AM MATERIAL CHECKER Gender Identity Not on file Sexual Orientation Not on file documented as of this encounter Plan of Treatment Not on file documented as of this encounter Visit Diagnoses Not on filedocumented in this encounter Care Teams Cell Builder Relationship Specialty Start Date End Date Surya Carlson DO PCP - General 10/01/21 Andres Farrar MD Orthopedic Surgery 02/20/15 documented as of this encounter
--- OUTSIDE RECORDS SUMMARY | 2024-09-09 10:39 | XMS_ITS | Clinical Summary ---
Author Organization [facility] Address [address] [place] [address] Care Team Providers Care Diamond Die Polisher Name Role Phone Andres Farrar MD Unavailable Surya Carlson DO Primary Care Provider [phone] Source Comments [facility] Affiliates and Associated Physician Practices is amultiple site organization consisting of ambulatory clinics and hospital sitesin [place], [place], [place] and [place]. This disclosure is being madepursuant to the Care Everywhere program and may not contain all information available regarding this patient. Last updated 17.[facility] Allergies Active Allergy Reactions Criticality Noted Date [...] on file Legal Sex Female 6:25 AM LEAD QUALITY TECHNICIAN Gender Identity Not on file Sexual Orientation Not on file Last Filed Vital Signs Vital Sign Reading Time Taken Comments Blood Pressure 142/80 03/25/2012 11:05 AM LEAD QUALITY TECHNICIAN Pulse 50 03/25/2012 11:05 AM LEAD QUALITY TECHNICIAN Temperature 36.5 C (97.7 F) 08/30/2011 12:39 PM CDT Respiratory Rate 16 08/30/2011 12:39 PM CDT Oxygen Saturation 98% 03/25/2012 11:05 AM LEAD QUALITY TECHNICIAN Inhaled Oxygen Concentration - - Weight 61.2 kg (135 lb) 02/20/2015 9:40 AM LEAD QUALITY TECHNICIAN Height 160 cm (5' 3) 02/20/2015 9:40 AM LEAD QUALITY TECHNICIAN Body Mass Index 23.91 02/20/2015 9:40 AM LEAD QUALITY TECHNICIAN Plan of Treatment Health Maintenance Due Date [...] Name:HUMPHREY BURLESON Subscriber ID:Not on file Address: [address] [place] [address] Payer ID:Not on file Group ID:Not on file Type:Self Pay Address: [place], [place] Advance Directives * FULL RESUSCITATION (Latest Code Status on File) Date Activated Date Inactivated Comments 08/29/2011 1:51 PM 08/31/2011 2:15 AM Care Teams Diamond Die Polisher Relationship Specialty Start Date End Date Surya Carlson DO PCP - General 10/01/21 Andres Farrar MD Orthopedic Surgery 02/20/15
--- OUTSIDE RECORDS SUMMARY | 2024-09-09 10:39 | XMS_ITS | Clinical Summary ---
Author Organization [facility] Address [address] [place] [address] Phone Care Team Providers Care Director Fraud Name Role Phone SandrinekelSurya shepherd DO Primary Care Provider [phone] Allergies Active Allergy Reactions Criticality Noted Date [...] on file Legal Sex Female 8:46 AM [facility] Gender Identity Not on file Sexual Orientation [...] 8:50 AM CDT Height 160 cm (5' 3) 01/08/2022 8:50 AM CDT Body Mass Index 28.52 01/08/2022 8:50 AM CDT Plan of Treatment Health Maintenance Due Date Last Done Comments Pneumococcal PPSV23/PCV13 65 + Years / Low and Medium Risk (1 of 4 - PCV) 12/22/1995 Influenza Vaccine (Season Ended) 2024 12/31/19 13 Insurance [facility] MEDICA[facility] Care Teams Director Fraud Relationship Specialty Start Date End Date Surya Carlson DO [address] [place] [address] PCP - General Internal Medicine 06/04/20
== END 2024-09-09 10:36 | disposition home or self-care (01) ==
PROVIDERS: PCP Internal Medicine; Visit Provider Clinical Nurse Specialist
DX: R60.9 Edema, unspecified (principal); M25.561 Pain in right knee; M25.361 Other instability, right knee
CPT/HCPCS: 73721

== ENCOUNTER 2024-10-14 09:00 | Outpatient (RCR) | payer MEDICARE, SELFPAY ==
--- NOTE | 2024-08-09 14:36 | OPREHPOC ---
Outpatient Therapy Plan of Care This is a Multidisciplinary Plan of Care that may contain components documented by all disciplines (PT, OT, and ST.) PT Problem 1 PT Problem #1 Knowledge Deficit PT Goal 1 Goal / Goal Update 1*independent with HEP 2* pt demonstrate correct body mechanics with lifting to/from the floor Target Visit 10 PT Problem 2 PT Problem #2 Pain PT Goal 1 Goal / Goal Update * pt report pain rating at worst in R knee and low back of 2/ Target Visit 10 PT Problem 3 PT Problem #3 Impaired Flexibility PT Goal 1 Goal / Goal Update *increase flexibility of trunk and R hip, to decrease pull and strain on lumbar spine: 1* hamstring length with supine SLR 75' 2* piriformis stretch in supine without report of pull in hip to midline of body 3* anterior hip/quad length with prone knee flexion of 120' Target Visit 10 PT Problem 4 PT Problem #4 Impaired Strength PT Goal 1 Goal / Goal Update * good strength 4+/5 of trunk and hips, to improve stability to lumbar-sacral areas Target Visit 10
--- NOTE | 2024-08-09 14:36 | PTOPEVAL1 ---
Assessment and note entered by Vicenta Cheng, PT Evaluation Information Assessment Status Evaluation ICD-10 Condition Codes (PT) Pain in right knee M25.561,Difficulty Walking R26. 2,Weakness R53.1 low back pain Onset about 1 month ago Subjective Information gradual increase in R knee pain; no trauma or injury to knee/leg; recent x ray of knee negative; have had more back pain and sciatic into R hip; history of L ankle ORIF, arthritis in back; activity: independent with all in-home and self care tasks; have been keeping busy with yard work and prepping for redoing nava in home Reported Pain Level Pain Score Self Report Additional Pain Score Comments pain range in the past week: 5-9/ 10; R knee - over patella- entire medial,lateral, superior and inferior aspects; sometimes runs down into posterior calf increase pain: increase with sit to standing up; tolerance standing/walking 30 minutes decrease pain: sit/rest not use ice,heat- instruct on PRN use; is not taking any pain meds no redness or swelling of knee sleeping- knee does not wake her up from sleeping; generally sleeps on her sides-- instruct on pillow between her knees for posture Assessment PT Clinical Summary Mamta has the diagnosis of R knee pain. She reports gradual onset of knee pain, without injury to leg. Recent x ray of knee was negative. LE functional scale rating of 53% limitation in activity level. She is active and independent with light home and self care tasks. With the evaluation: she has increase pain in her low back and R LE with standing trunk flexion, supine hip IR, ER and flexion motions; tightness over R hamstring, piriformis and anterior hip/quad muscles, compared to the L; pain is decreased with standing trunk extension and supine leg pull. The 2 minute walking test distance was 510' with report of back pain 6/10 and No knee pain. Skilled PT services are indicated for modalities to decrease pain; therapeutic exercises to stretch R hip and strengthen trunk with education for HEP and body mechanics/posture. Plan of Care Interventions Electrical Stimulation,Hot Pack/Cold Pack,Manual Therapy,Mechanical Traction,Neuro Re-education, Patient/Caregiver Education,Therapeutic Activities ,Therapeutic Exercise,Ultrasound,Other Other Interventions taping PT Services Indicated Yes Treatment Frequency and 1-2x/wk for 10 visits Duration These treatments will address the objective and functional deficits as defined above. The patient will be advanced safely and appropriately in order for the patient to progress towards his/her prior level of function. Additional exercises will be introduced and as well as a comprehensive home exercise program upon discharge, if needed, ?to ensure carryover of functional gains achieved in the clinic. This treatment plan has been reviewed and agreement upon by the patient.
--- NOTE | 2024-09-12 09:53 | OPREHPOC ---
Outpatient Therapy Plan of Care This is a Multidisciplinary Plan of Care that may contain components documented by all disciplines (PT, OT, and ST.) PT Problem 1 PT Problem #1 Knowledge Deficit PT Goal 1 Goal / Goal Update 1*independent with HEP 2* pt demonstrate correct body mechanics with lifting to/from the floor 09-12-24 progress goals met continue to progress education Target Visit 13 PT Problem 2 PT Problem #2 Pain PT Goal 1 Goal / Goal Update * pt report pain rating at worst in R knee and low back of 05/09 09-12-24 progress goal not met continue towards goal Target Visit 13 PT Problem 3 PT Problem #3 Impaired Flexibility PT Goal 1 Goal / Goal Update *increase flexibility of trunk and R hip, to decrease pull and strain on lumbar spine: 1* hamstring length with supine SLR 75' 2* piriformis stretch in supine without report of pull in hip to midline of body 3* anterior hip/quad length with prone knee flexion of 120' 09-12-24 progress goal 2 met continue towards goals 1,3 Target Visit 13 PT Problem 4 PT Problem #4 Impaired Strength PT Goal 1 Goal / Goal Update * good strength 4+/5 of trunk and hips, to improve stability to lumbar-sacral areas 09-12-24 progress goal met continue to progress exercises Target Visit 13
--- NOTE | 2024-09-12 09:54 | PTOPPROG ---
Assessment and note entered by Vicenta Cheng, PT Assessment Status Progress ICD-10 Condition Codes (PT) Pain in low back M54.50,Pain in right knee M25.561 ,Difficulty Walking R26.2,Weakness R53.1 Onset about 1 month ago Subjective Information knee and leg is better; the pain comes and goes; better educated on what to do when it starts hurting more; the exercises and therapy have really helped; have been able to go up/down the basement stairs without troubles; want to continue therapy because it is really helping me. PAIN: range of the low back and R knee in the past week: 0-4/10; decrease pain: stretches, resting, heat increase pain: bending over and picking up branches and twigs in the yard; Assessment PT Clinical Summary Mamta has received 7 PT sessions. Compared to the initial evaluation: pain rating from 0-6/10 to 0-4/10; self assessment with LE functional scale rating of 53 to 35% limitation in activity level; increase flexibility of R piriformis with cross leg stretch in supine and anterior hip-quad with prone knee flexion to 110', with hamstring SLR same at 60'; increase strength of trunk and hips; education for posture, body mechanics and HEP. The goals were partially met. Continue PT treatment. Plan of Care Interventions Electrical Stimulation,Hot Pack/Cold Pack,Manual Therapy,Mechanical Traction,Neuro Re-education, Patient/Caregiver Education,Therapeutic Activities ,Therapeutic Exercise,Ultrasound,Other Other Interventions taping PT Services Indicated Yes Treatment Frequency and 1-2x/wk for 6 visits Duration These treatments will address the objective and functional deficits as defined above. The patient will be advanced safely and appropriately in order for the patient to progress towards his/her prior level of function. Additional exercises will be introduced and as well as a comprehensive home exercise program upon discharge, if needed, ?to ensure carryover of functional gains achieved in the clinic. This treatment plan has been reviewed and agreement upon by the patient.
--- NOTE | 2024-10-14 09:55 | OPREHPOC ---
Outpatient Therapy Plan of Care This is a Multidisciplinary Plan of Care that may contain components documented by all disciplines (PT, OT, and ST.) PT Problem 1 PT Problem #1 Knowledge Deficit PT Goal 1 Goal / Goal Update 1*independent with HEP 2* pt demonstrate correct body mechanics with lifting to/from the floor 09-12-24 progress goals met continue to progress education 10-14-24 d/c goal met Target Visit 13 Progress Met PT Problem 2 PT Problem #2 Pain PT Goal 1 Goal / Goal Update * pt report pain rating at worst in R knee and low back of 05/09 09-12-24 progress goal not met continue towards goal 10-14-24 d/c goal met Target Visit 13 Progress Met PT Problem 3 PT Problem #3 Impaired Flexibility PT Goal 1 Goal / Goal Update *increase flexibility of trunk and R hip, to decrease pull and strain on lumbar spine: 1* hamstring length with supine SLR 75' 2* piriformis stretch in supine without report of pull in hip to midline of body 3* anterior hip/quad length with prone knee flexion of 120' 09-12-24 progress goal 2 met continue towards goals 1,3 10-14-24 d/c goals 2,3 met Target Visit 13 Progress Partially Met PT Problem 4 PT Problem #4 Impaired Strength PT Goal 1 Goal / Goal Update * good strength 4+/5 of trunk and hips, to improve stability to lumbar-sacral areas 09-12-24 progress goal met continue to progress exercises 10-14-24 d/c goal met Target Visit 13 Progress Met
--- NOTE | 2024-10-14 09:55 | PTOPDC ---
Assessment and note entered by Vicenta Cheng, PT Assessment Status Discharge ICD-10 Condition Codes (PT) Pain in low back M54.50,Pain in right knee M25.561 ,Difficulty Walking R26.2,Weakness R53.1 Onset about 1 month ago Subjective Information doing much better; have learned to ask my family to help with the heavy things at home; the exercises are doing good at home; am careful with picking up sticks in the yard, squatting and not hurting my back; ready to be finished with therapy; Reported Pain Level Pain Score 0: Self Report Additional Pain Score Comments pain range in the past week: of low back and R knee 0-1/10; increase pain: walking and more standing activity decrease pain: sit and rest Assessment PT Clinical Summary Mamta has received 12 PT sessions. Today presents with: pain rating of 0-1/10; self assessment LE functional scale rating of 39% limitation in activity; gross strength of trunk and hips 4+/5; improved flexibility of R anterior hip/quad and bilateral piriformis; education completed for HEP and body mechanics. The goals were partially met. Discharge PT. She is to continue with her HEP, activity monitor and body mechanics. Plan of Care PT Services Indicated No
== END 2024-10-14 11:29 | disposition home or self-care (01) ==
LOC: ANHPT 09:00
PROVIDERS: PCP Internal Medicine; Visit Provider Clinical Nurse Specialist
DX: M25.361 Other instability, right knee (principal); M25.561 Pain in right knee
CPT/HCPCS: 97110; 97116; 97140; 97161; 97530

== ENCOUNTER 2025-02-03 00:33 | Day surgery (SDC) | payer MEDICARE, SELFPAY ==
[2025-01-24 10:47] VITALS: BMI 29.3
--- OUTSIDE RECORDS SUMMARY | 2025-02-03 00:36 | XMS_ITS | Clinical Summary ---
Author Organization [facility] [employer] Address [address] [place] [address] Care Team Providers Care Fruit Buyer Name Role Phone Andres Farrar MD Unavailable Surya Carlson DO Primary Care Provider [phone] Source Comments [facility] Affiliates and Associated Physician Practices is amultiple site organization consisting of ambulatory clinics and hospital sitesin [place], [place], [place] and [place]. This disclosure is being madepursuant to the Care Everywhere program and may not contain all information available regarding this patient. Last updated 17.[facility] [employer] Allergies Active Allergy Reactions Criticality Noted Date [...] on file Legal Sex Female 6:25 AM KEY HOLDER Gender Identity Not on file Sexual Orientation Not on file Last Filed Vital Signs Vital Sign Reading Time Taken Comments Blood Pressure 142/80 03/25/2012 11:05 AM KEY HOLDER Pulse 50 03/25/2012 11:05 AM KEY HOLDER Temperature 36.5 C (97.7 F) 08/30/2011 12:39 PM CDT Respiratory Rate 16 08/30/2011 12:39 PM CDT Oxygen Saturation 98% 03/25/2012 11:05 AM KEY HOLDER Inhaled Oxygen Concentration - - Weight 61.2 kg (135 lb) 02/20/2015 9:40 AM KEY HOLDER Height 160 cm (5' 3) 02/20/2015 9:40 AM KEY HOLDER Body Mass Index 23.91 02/20/2015 9:40 AM KEY HOLDER Plan of Treatment Health Maintenance Due Date Last Done Comments BONE DENSITY TESTING 1945 DTAP/TDAP/TD VACCINES (1 - Tdap) 1964 PNEUMOCOCCAL VACCINE 50+ (1 of 1 - PCV) 12/22/1995 ZOSTER VACCINE (1 of 2) 12/22/1995 Respiratory Syncytial Virus (RSV) Vaccine Pt: or over 60 yrs (1 - 1-dose 75+ series) 2020 DEPRESSION SCREENING 03/30/2024 MEDICARE AWV CALENDAR YEAR 2024 COVID-19 VACCINE (1 - 2023-2 5 season) 2024 INFLUENZA VACCINE (#1) 2024 12/30/2012 HEPATITIS B VACCINE Aged Out No longe [...] / Payer (Ef fective for All Dates) Name:Humphrey Burleson Member ID:Not on file Relation to Subscriber:Not on file Name:HUMPHREY BURLESON Subscriber ID:Not on file Address: [address] [place] [address] Payer ID:Not on file Group ID:Not on file Type:Self Pay Address: [place], [place] Advance Directives * FULL RESUSCITATION (Latest Code Status on File) Date Activated Date Inactivated Comments 08/29/2011 1:51 PM 08/31/2011 2:15 AM Care Teams Fruit Buyer Relationship Specialty Start Date End Date Surya Carlson DO PCP - General 10/01/21 Andres Farrar MD Orthopedic Surgery 02/20/15
--- OUTSIDE RECORDS SUMMARY | 2025-02-03 00:36 | XMS_ITS | Encounter Summary ---
Author Organization [facility] Address [address] [place] [address] Care Team Providers Care Storage Management Architect Name Role Phone Andres Farrar MD Unavailable [phone] Surya Carlson DO Primary Care Provider [phone] Encounter Details Date Type Department Care Team (Late st Contact Info) Description 09/08/2011 [facility] Outpatient Visit [facility] - Surgery [address] [place] [address] Marty Ortega DO [address] [facility] [address] [place] [address] Social History Tobacco Use Types Packs/Day Years Used Date Smoking Tobacco: Former Cigarettes Q uit: 03/30/1996 Alcohol Use Standard Drinks/Week Comments Yes 0.8 (1 standard drink = 0.6 oz p ure alcohol) socially Comments Unknown Sex and Gender Information Value Date Recorded Sex Assigned at Not on file Legal Sex Female 6:25 AM STRINGING MACHINE OPERATOR Gender Identity Not on file Sexual Orientation Not on file documented as of this encounter Plan of Treatment Not on file documented as of this encounter Visit Diagnoses Not on filedocumented in this encounter Care Teams Storage Management Architect Relationship Specialty Start Date End Date Surya Carlson DO PCP - General 10/01/21 Andres Farrar MD Orthopedic Surgery 02/20/15 documented as of this encounter
--- OUTSIDE RECORDS SUMMARY | 2025-02-03 00:36 | XMS_ITS | Clinical Summary ---
Author Organization [facility] Address [address] [place] [address] Phone Care Team Providers Care Calendar Control Clerk Blood Bank Name Role Phone SandrinekelSurya shepherd DO Primary Care Provider [phone] Allergies Active Allergy Reactions Criticality Noted Date [...] on file Legal Sex Female 8:46 AM [facility] Gender Identity Not on file Sexual [...] / Low and Medium Risk (1 of 2 - PCV) 12/22/1995 Influenza Vaccine (#1) 2024 12/30/2012 Insurance [facility] [employer]ICA[employer] Care Teams Calendar Control Clerk Blood Bank Relationship Specialty Start Date End Date Surya Carlson DO [address] [place] [address] PCP - General Internal Medicine 06/04/20
--- OUTSIDE RECORDS SUMMARY | 2025-02-03 00:36 | XMS_ITS | Clinical Summary ---
Author Organization [facility] Address [address] [place] [address] Care Team Providers Care Performance Improvement Consultant Name Role Phone Unavailable Primary Care [...] ) (1 - 1-dose 75+ series) 2020 DTAP/TDAP/TD VACCINES (2 - Td or Tdap) 08/31/2024 INFLUENZA VACCINE (#1) 2024
--- OUTSIDE RECORDS SUMMARY | 2025-02-03 00:36 | XMS_ITS | Patient Health Record ---
Author Organization [facility] [employer] Address [address] [place] [address] Care Team Providers Care Sports Physiotherapist Name Role Phone Homero Corrigan Unavailable [phone] Reason For Referral No Information Medications Medication [...] Vaccine Route Administration Date Status Comme nts Influenza (split), 3 yrs and above IM Intramuscular 12/30/2012 Administered Tdap (Boostrix, Adacel) Unknown 08/31/2014 Administered zzInfluenza, High dose, injectable, preservative free (Fluzone) Unknown 12/05/2013 Administered Zoster (Zostavax) Unknown 03/30/2012 Administered Problems Problem Type SNOMED Code ICD Code Onset Dates Problem Status W/U Status Risk Notes Problem Vitamin D deficiency (13468749) Unspecified vitamin D deficiency (268.9) 0 confirmed James Problem Anxiety state (277399076) Anxiety state, unspecified (300.00) 0 confirmed James Problem Allergic rhinitis (34503869) Allergic rhinitis, cause unspecified (477.9) 0 confirmed James Problem Essential hypertension (62066675) Unspecified essential hypertension (401.9) 0 confirmed James Problem Paroxysmal supraventricular tachycardia (67010679) Paroxysmal supraventricular tachycardia (427.0) 0 confirmed James Problem Acute upper respiratory infection (16395668) Acute upper respiratory infections of unspecified site (465.9) 0 confirmed James Problem Esophageal reflux (506448627) Esophageal reflux (530.81) 0 confirmed James Problem Urinary tract infectious disease (65145034) Urinary tract infection, site not specified (599.0) 0 confirmed James Problem Hematuria (17522126) Hematuria, unspecified (599.70) 0 confirmed James Problem Disorder of sacrum (03257194) Disorders of sacrum (724.6) 0 confirmed James Problem Contact dermatitis caused by plants (disorder) (996237355) Contact dermatitis and other eczema due to plants (except food) (692.6) 0 confirmed James Problem Osteoporosis (60283304) Unspecified osteoporosis (733.00) 0 confirmed James Problem Malaise and fatigue (259934657) Other malaise and fatigue (780.79) 0 confirmed James Problem Abdominal pain (80459660) Abdominal pain, unspecified site (789.00) 0 confirmed James Problem Postmenopausal state (26603869) Asymptomatic postmenopausal status (age-related) (natural) (V49.81) 0 confirmed James Problem Needs influenza immunization (506616425) Need for prophylactic vaccination and inoculation, Influenza (V04.81) 0 confirmed James Problem General examination of patient (879558204) Routine general medical examination at health care facility (V70.0) 0 confirmed James Problem Respiratory disease screening (519643818) Screening for other and unspecified respiratory condition (V81.4) 0 confirmed James Problem Essential hypertension (80718426) Essential (primary) hypertension (I10) 0 confirmed James Plan Of Treatment No Information
[2025-02-03 08:40] VITALS: BP 132/72; PULSE 85; RESP 16; TEMP 36.6; O2SAT 100; BMI 29.0
[2025-02-03] MEDS: LACTATED RINGERS 1,000 ML 150 ML IV CONT (09:03)
--- NOTE | 2025-02-03 09:07 | WPDANESEPPF ---
Anes - Initial Pre Proc Eval Procedure: Operation Date: 02/03/25 10:00 Proposed Procedures p Diagnostic Colonoscopy - Preet Styles MD Date/Time: 02/03/25 09:07 Surgeon: Preet Styles MD Pre Op Diagnosis: Benign neoplasm of colon, unspecified Patient Data Age: 79 Gender: F Height: 1.6 m Weight: 74.4 kg Last Vital Signs Temp 36.6 C 02/03/25 08:40 Pulse 85 02/03/25 08:40 Resp 16 02/03/25 08:40 BP 132/72 02/03/25 08:40 Pulse Ox 100 02/03/25 08:40 O2 Del Method Room Air 02/03/25 08:40 Allergies Allergy/AdvReac Type Severity Reaction Status Date / Time Penicillins Allergy Unknown Rash Verified 02/03/25 08:45 Sulfa (Sulfonamide Allergy Unknown Rash Verified 02/03/25 08:45 Antibiotics) Home Medications ?Medication ?Instructions ?Recorded ?Confirmed ?Type aspirin 81 mg tablet,delayed 81 mg PO DAILY 02/17/19 02/03/25 History release (Adult Low Dose Aspirin) cyanocobalamin (vitamin B-12) 1,000 mcg PO DAILY 11/09/19 02/03/25 History 1,000 mcg tablet (Vitamin B-12) lisinopril 10 1 tablet PO DAILY 08/22/20 02/03/25 History mg-hydrochlorothiazide 12.5 mg tablet metoprolol succinate 25 mg 50 mg PO HS 08/22/20 02/03/25 History tablet,extended release 24 hr calcium carbonate (Calcium 500) 500 mg PO .3 times a week 05/29/21 02/03/25 History cholecalciferol (vitamin D3) 50 50 mcg PO DAILY 09/05/21 02/03/25 History mcg (2,000 unit) capsule loratadine 10 mg tablet (Claritin) 10 mg PO DAILY #30 tabs 07/10/22 02/03/25 Rx sodium chloride 0.65 % nasal spray 1 spray intranasal BID PRN dry 06/10/23 01/24/25 History aerosol (Saline Nasal) nasal passages menthol-thymol topical liniment 1 applic topical BID-TID PRN pain 05/06/24 02/03/25 Rx #120 mL atorvastatin 10 mg tablet 10 mg PO HS #90 tabs 11/07/24 02/03/25 Rx valacyclovir 500 mg tablet 500 mg PO Q12H 3 days #6 tabs 11/29/24 02/03/25 Rx omeprazole 40 mg capsule,delayed See Rx Instructions .Route 01/10/25 02/03/25 Rx release .COMPLEX #90 caps calcitriol 0.25 mcg capsule 0.25 mcg PO 3XW #12 caps 01/19/25 02/03/25 Rx colestipol 1 gram tablet See Rx Instructions .Route .COMPLEX 01/24/25 02/03/25 History Patient hx anesthesia problems: none Family hx anesthesia problems: none Results Review: All pre-operative results and documents have been reviewed as part of the pre-operative evaluation. [facility] Past Medical History Medical History MCL sprain of right knee Right knee pain Instability of right knee joint Adenomatous colon polyp Gastritis Bloating Fecal urgency Abdominal pain Diarrhea Paroxysmal SVT (supraventricular tachycardia) CAD (coronary artery disease) Painful orthopaedic hardware Pain due to internal orthopedic prosthetic devices, implants and grafts, subsequent encounter Genital herpes HTN (hypertension) Prediabetes Vitamin D deficiency Hyperglycemia HLD (hyperlipidemia) Surgical History Surgical History History of cholecystectomy H/O total hysterectomy History of ankle surgery Family History Family History Sibling Patient's sister is in good health Malignant neoplasm of prostate Other Hypertension Social History Social History (Updated 01/19/25 @ 09:10 by Sumaya Yadav MA) Years smoked: 10 Smoking status: Former smoker Tobacco type: cigarettes Smoking end date: 03/30/97 Additional smoking assessment comments: >1PK/DAY/X10YRS - QUIT 1997 Alcohol intake: never Substance use: never Substance use type: does not use Do You Feel Safe in your Home?: Yes Lack of Transportation: No Lack of Food: Never True Current Housing: I Have Housing Concerned About Future Housing: No Difficulty Paying Gas/Electric Bills: No Difficulty Paying for Meds: No Currently Unemployed: No Education: High School Diploma/GED Difficulty w/ Childcare or Family Care: No Living arrangements: with family Additional living arrangements comments: with sp Gender identity (if verbalized by the patient): Female Spiritual care concerns: No Anes - Eval Final PreProcedure Day of Procedure 02/03/25 09:07 Patient weight: overweight Heart: regular rate and rhythm Lungs: clear to auscultation Airway: Mallampati scale class II Neurological: alert and oriented Last oral intake: >/= 8 hours ASA classification: III Emergent: no Anesthetic plan: proceed Anesthesia type and monitoring: general GIVS and standard monitoring Results Review: All pre-operative results and documents have been reviewed as part of the pre-operative evaluation. Informed Consent: The patient's anesthetic plan and its attendant risks and benefits were discussed with the patient/family/POA. Questions were solicited and answers provided to the satisfaction of the patient/family/POA.
--- NOTE | 2025-02-03 09:28 | PM.HPGS ---
History of Present Illness History of Present Illness Consent: Risks, benefits, and alternatives have been discussed and questions answered. Patient agrees to proceed with procedure. Chief complaint: Benign neoplasm of colon, unspecified Narrative: Mamta Ames is a 79 year old female with several colon polyps in 2022 Review of Systems Review of Systems: All systems reviewed & are unremarkable except as noted in HPI and below PMFSH Past Medical History Medical History MCL sprain of right knee Right knee pain Instability of right knee joint Adenomatous colon polyp Gastritis Bloating Fecal urgency Abdominal pain Diarrhea Paroxysmal SVT (supraventricular tachycardia) CAD (coronary artery disease) Painful orthopaedic hardware Pain due to internal orthopedic prosthetic devices, implants and grafts, subsequent encounter Genital herpes HTN (hypertension) Prediabetes Vitamin D deficiency Hyperglycemia HLD (hyperlipidemia) Surgical History Surgical History History of cholecystectomy H/O total hysterectomy History of ankle surgery Family History Family History Sibling Patient's sister is in good health Malignant neoplasm of prostate Other Hypertension Social History Social History (Updated 01/19/25 @ 09:10 by Sumaya Yadav MA) Years smoked: 10 Smoking status: Former smoker Tobacco type: cigarettes Smoking end date: 03/30/97 Additional smoking assessment comments: >1PK/DAY/X10YRS - QUIT 1997 Alcohol intake: never Substance use: never Substance use type: does not use Do You Feel Safe in your Home?: Yes Lack of Transportation: No Lack of Food: Never True Current Housing: I Have Housing Concerned About Future Housing: No Difficulty Paying Gas/Electric Bills: No Difficulty Paying for Meds: No Currently Unemployed: No Education: High School Diploma/GED Difficulty w/ Childcare or Family Care: No Living arrangements: with family Additional living arrangements comments: with sp Gender identity (if verbalized by the patient): Female Spiritual care concerns: No Meds Home Medications and Allergies Home Medications ?Medication ?Instructions ?Recorded ?Confirmed ?Type aspirin 81 mg tablet,delayed 81 mg PO DAILY 02/17/19 02/03/25 History release (Adult Low Dose Aspirin) cyanocobalamin (vitamin B-12) 1,000 mcg PO DAILY 11/09/19 02/03/25 History 1,000 mcg tablet (Vitamin B-12) lisinopril 10 1 tablet PO DAILY 08/22/20 02/03/25 History mg-hydrochlorothiazide 12.5 mg tablet metoprolol succinate 25 mg 50 mg PO HS 08/22/20 02/03/25 History tablet,extended release 24 hr calcium carbonate (Calcium 500) 500 mg PO .3 times a week 05/29/21 02/03/25 History cholecalciferol (vitamin D3) 50 50 mcg PO DAILY 09/05/21 02/03/25 History mcg (2,000 unit) capsule loratadine 10 mg tablet (Claritin) 10 mg PO DAILY #30 tabs 07/10/22 02/03/25 Rx sodium chloride 0.65 % nasal spray 1 spray intranasal BID PRN dry 06/10/23 01/24/25 History aerosol (Saline Nasal) nasal passages menthol-thymol topical liniment 1 applic topical BID-TID PRN pain 05/06/24 02/03/25 Rx #120 mL atorvastatin 10 mg tablet 10 mg PO HS #90 tabs 11/07/24 02/03/25 Rx valacyclovir 500 mg tablet 500 mg PO Q12H 3 days #6 tabs 11/29/24 02/03/25 Rx omeprazole 40 mg capsule,delayed See Rx Instructions .Route 01/10/25 02/03/25 Rx release .COMPLEX #90 caps calcitriol 0.25 mcg capsule 0.25 mcg PO 3XW #12 caps 01/19/25 02/03/25 Rx colestipol 1 gram tablet See Rx Instructions .Route .COMPLEX 01/24/25 02/03/25 History Allergies Allergy/AdvReac Type Severity Reaction Status Date / Time Penicillins Allergy Unknown Rash Verified 02/03/25 08:45 Sulfa (Sulfonamide Allergy Unknown Rash Verified 02/03/25 08:45 Antibiotics) Vital Signs Vital Signs - 24 hr 02/03/25 08:40 Temperature 97.8 F Pulse Rate 85 Respiratory Rate 16 Blood Pressure 132/72 Pulse Oximetry 100 Oxygen Delivery Room Air Exam Const: General: comfortable and no acute distress HENMT: Face/Nose/Sinus: Normal nares present Eyes: General: appearance normal, both eyes and all related structures Neck: Neck: no JVD Resp: Auscultation: clear to auscultation bilaterally Cardio: Rate: regular rate Rhythm: regular rhythm GI: Inspection: non-distended GI Palp: Yes Soft to palpation Skin: General skin exam: normal color Extrem: General: normal to inspection Psych: Mental Status: mental status grossly normal Assessment and Plan Assessment and plan (1) Adenomatous colon polyp: Code(s): D12.6 - Benign neoplasm of colon, unspecified Status: Acute Assessment and Plan: colonoscopy
--- NOTE | 2025-02-03 09:52 | S_PTH ---
PATIENT: Mamta Ames LOC: [facility]#:[id number] AGE/SX: 79/F ROOM: RE02/03/[address]: Preet Styles MD : 1945 BED: DIS: 02/03/2025 SPEC #: [id number] RECD: 02/03/25 11:43 STATUS: TOLU REWillow #: [id number] [place]: 02/03/25 09:[address]: Preet Styles DEPT: [facility] Surgical RECD BY: Kasandra Dela Cruz ENTERED: 02/03/25 11:44 SP TYPE: Surgical OTHR DR: Surya Carlson DO Tissues: A - Colon Polypectomy B - Colon Polypectomy C - Colon Polypectomy Procedures: Hematoxylin and Eosin Stain Gross and Microscopic Level 4
[2025-02-03 09:53] VITALS: BP 105/39; PULSE 59; RESP 15; O2SAT 100
[2025-02-03 10:03] VITALS: BP 117/40; PULSE 54; RESP 17; O2SAT 100
[2025-02-03 10:13] VITALS: BP 129/47; PULSE 50; RESP 16; O2SAT 100
--- NOTE | 2025-02-03 10:24 | SUR.PHASEII ---
Dr. Siegel ok to send patient home with HR 47-53 d/t patient being on medications and asymptomatic. Patient aware not to saleh home to take medications and wait until later this evening.
== END 2025-02-03 10:38 | disposition home or self-care (01) ==
PROVIDERS: PCP Internal Medicine; Referring Provider Nurse Practitioner; Visit Provider Internal Medicine Gastroenterology
PROC: 0DJD8ZZ Inspection of Lower Intestinal Tract, Via Natural or Artificial Opening Endoscopic (ICD-10-PCS; CPT 45378; principal; 2025-02-03 10:00)
DX: Z12.11 Encounter for screening for malignant neoplasm of colon (principal); D12.2 Benign neoplasm of ascending colon; K63.5 Polyp of colon; K64.8 Other hemorrhoids; K57.30 Diverticulosis of large intestine without perforation or abscess without bleeding; E78.5 Hyperlipidemia, unspecified; I10 Essential (primary) hypertension; R73.03 Prediabetes; E55.9 Vitamin D deficiency, unspecified; R73.9 Hyperglycemia, unspecified; R15.2 Fecal urgency; I47.10 Supraventricular tachycardia, unspecified; I25.10 Atherosclerotic heart disease of native coronary artery without angina pectoris; Z79.82 Long term (current) use of aspirin; Z98.890 Other specified postprocedural states; Z90.49 Acquired absence of other specified parts of digestive tract; Z87.891 Personal history of nicotine dependence; Z87.19 Personal history of other diseases of the digestive system; Z80.42 Family history of malignant neoplasm of prostate
CPT/HCPCS: 45385; 88305; J2704; J7120